=== PATIENT | female | born 1955 | race Caucasian/White ===

== ENCOUNTER → 2016-06-23 | Outpatient (CLI) | payer BC ==
--- NOTE | 2016-06-23 14:20 | XR ---
EXAMINATION TYPE: XR chest 2V DATE OF EXAM: 06/23/2016 1:55 PM COMPARISON: 08/05/2015 HISTORY: Bronchitis and cough FINDINGS: The lungs are clear and there is no pneumothorax, pleural effusion, or focal pneumonia. Postsurgical change overlying the cervical spine. Scoliosis noted. Hyperinflation suggestive of COPD. Changes sug gestive of chronic interstitial lung disease. Degenerative change of the spine. IMPRESSION: 1. No acute process.
== END | disposition home or self-care (01) ==
LOC: RADXRMAIN 13:41
PROVIDERS: ATTEND Physician Assistant
DX: J20.9 Acute bronchitis, unspecified (principal)
CPT/HCPCS: 71020

== ENCOUNTER → 2016-07-01 | Outpatient (CLI) | payer BC ==
[2016-07-01 10:04] LABS: Blood Urea Nitrogen 16 mg/dL (7-17); Non-African American GFR(MDRD) >60 (>60 ml/min/1.73 sqM)
--- NOTE | 2016-07-01 13:31 | MR ---
EXAMINATION TYPE: MR lumbar spine wo con DATE OF EXAM: 07/01/2016 11:43 AM COMPARISON: MRI lumbar spine July 07, 2012. CT abdomen and pelvis November 07, 2015. HISTORY: Lumbago per order. Severe low back pain with difficulty walking with pain into both lower ex tremities as well as numbness and tingling per patient. TECHNIQUE: Multiplanar, multisequence imaging of the lumbar spine is performed without IV contrast. FINDINGS: Sagittal images of the lumbar spine show vertebral body heights to appear satisfactory. The re is persistent dextroconvex scoliosis centered at L2-L3 level. There is multilevel disc desiccation redemonstrated. There is fairly moderate disc space narrowing with vacuum disc phenomenon most promi nent at left L2-L3 level where there is moderate spurring and endplate changes redemonstrated. Multil evel small posterior disc herniations are seen on sagittal images. The conus medullaris is normal in position and signal ending at mid L1 vertebral body level. The bone marrow signal intensity is other dykes within normal limits. There is mild multilevel anterior spurring redemonstrated. Axial images beginning at the T12-L1 level which shows mild broad disc bulge mildly effacing anterior thecal sac on axial image 29. Bilateral neural foramina are felt patent. No significant change from prior study is seen. Axial images at the L1-L2 level show mild facet degenerative changes bilaterally. There is mild broad disc bulge mildly effacing anterior thecal sac on axial image 25, bilateral neural foramina are woodward nt. Axial images at L2-L3 level show mild/moderate broad disc bulge with left foraminal/lateral disc prot rusion component on axial image 20. There is effacement of the anterior thecal sac. Mild facet degene rative changes are redemonstrated bilaterally. Right-sided neural foramina is patent. There is modera te to severe left-sided neural foraminal narrowing with effacement of left L2 nerve redemonstrated on sagittal image 5. Finding appears similar to prior exam. Axial images at L3-L4 level show mild to moderate facet degenerative changes and ligamentum flavum hy pertrophy with some effacement of the posterior lateral thecal sac. There is mild broad-based posteri or disc protrusion mildly effacing anterior thecal sac. There is mild to moderate bilateral anterior inferior neural foraminal narrowing at this level now identified. Some progression in degenerative fi nding is felt present versus prior MRI at this level. Axial images at L4-L5 level show mild to moderate facet degenerative changes and ligamentum flavum hy pertrophy with some effacement the posterior lateral thecal sac on axial image 10. There is mild/mode rate broad-based posterior disc protrusion effacing anterior thecal sac. There is moderate to severe right-sided neural foraminal narrowing and more mild left-sided neural foraminal narrowing identified . There is felt interval increased in right-sided neural foraminal narrowing seen best on sagittal im age 11 versus prior study. Some spurring is noted at this foraminal level. Axial images at L5-S1 level show mild facet degenerative changes bilaterally. There is central disc p rotrusion is seen. Spinal canal is fairly well preserved. Bilateral neural foramina are patent. Common bile duct remains prominent measuring up to 11 mm diameter on axial image 21, this is grossly stable from prior exams. Patient is noted status post cholecystectomy but this is slightly more promi nent than expected after cholecystectomy. IMPRESSION: Underlying scoliosis with multilevel degenerative changes in lumbar spine as detailed abo ve. Progression in degenerative findings as 2013 MRI is noted as detailed above.
--- NOTE | 2016-07-01 23:24 | MR ---
EXAMINATION TYPE: MR cervical spine wo/w con DATE OF EXAM: 07/01/2016 12:07 PM COMPARISON: NONE HISTORY: Cervicalgia TECHNIQUE: Multiplanar, multisequence images of the cervical spine were acquired utilizing 10 mL intravenous Mul tiHance gadolinium contrast. Diffusion weighted imaging was performed. The vertebra have normal alignment. There is anterior fusion with metal artifact at C5 C6 C7. The cer vical spinal cord has normal signal pattern without evidence of edema. Brainstem is intact. There is no spinal stenosis. I see no sign of a posterior cervical significant disc herniation. There is a sma ll posterior disc bulge at C3-4 towards the left side. The contrast images show no pathologic enhance ment. There is disc space narrowing at C5-6 C6-7. IMPRESSION: Previous anterior fusion surgery. Degenerative disc narrowing at C5-6 C6-7. No spinal stenosis. No ev idence of any cord impingement. There is a small left sided and central C3-4 disc bulging without imp ingement on the spinal canal to any extent.
== END | disposition home or self-care (01) ==
LOC: RADMRIMAIN 09:38
PROVIDERS: ATTEND Psychiatry & Neurology Neurology
DX: M48.02 Spinal stenosis, cervical region (principal); M50.21 Other cervical disc displacement, high cervical region; M47.816 Spondylosis without myelopathy or radiculopathy, lumbar region
CPT/HCPCS: 82565; 84520; 72148; 72156; A9577

== ENCOUNTER 2017-08-03 12:57 | Inpatient (IN) | payer BC ==
[2017-08-03] MEDS ORDERED: SODIUM CHLORIDE 0.9% 1,000 ML IV STA (13:42)
[2017-08-03] MEDS ORDERED: ALBUTEROL NEBULIZED 2.5 MG/3 ML INHALATION STA (13:43)
[2017-08-03] MEDS ORDERED: LEVOFLOXACIN 750MG-D5W PMX 750 MG in DEXTROSE/WATER 1 150ML.BAG IVPB STA (13:46)
[2017-08-03] MEDS: SODIUM CHLORIDE 0.9% 500 ML IV SCH ×2 (14:00→14:35)
[2017-08-03 14:19] LABS: Basophils % (A) 1 %; Eosinophils % (A) 0 %; HCT 38.4 % (34.0-46.0); HGB 12.2 gm/dL (11.4-16.0); Lymphocytes % (A) 14 %; MCH 29.9 pg (25.0-35.0); MCHC 31.7 g/dL (31.0-37.0); MCV 94.3 fL (80.0-100.0); Mean Platelet Volume 7.2; Monocytes # (A) 0.6 k/uL (0-1.0); Monocytes % (A) 8 %; Neutrophils # (A) 5.5 k/uL (1.3-7.7); Neutrophils % (A) 76 %; Platelet Count 234 k/uL (150-450); RBC 4.07 m/uL (3.80-5.40); RDW 13.4 % (11.5-15.5); WBC 7.3 k/uL (3.8-10.6)
[2017-08-03 14:25] LABS: INR 0.9 (<1.2); Partial Thromboplastin Time 23.9 sec (22.0-30.0); Prothrombin Time 9.3 sec (9.0-12.0)
[2017-08-03 14:30] LABS: ALT 18 U/L (9-52); AST 18 U/L (14-36); Albumin 3.7 g/dL (3.5-5.0); Alkaline Phosphatase 89 U/L (38-126); Anion Gap 10 mmol/L; Blood Urea Nitrogen 21 mg/dL (7-17); Calcium 8.8 mg/dL (8.4-10.2); Carbon Dioxide 29 mmol/L (22-30); Chloride 98 mmol/L (98-107); Glucose 131 mg/dL (74-99); Potassium 3.6 mmol/L (3.5-5.1); Sodium 137 mmol/L (137-145); Total Bilirubin 0.2 mg/dL (0.2-1.3); Total Protein 6.2 g/dL (6.3-8.2)
[2017-08-03 14:45] LABS: Creatine Kinase 67 U/L (30-135)
[2017-08-03 14:54] LABS: Creatine Kinase MB 1.2 ng/mL (0.0-2.4)
--- NOTE | 2017-08-03 15:05 | XR ---
EXAMINATION TYPE: XR chest 2V DATE OF EXAM: 08/03/2017 COMPARISON: 06/23/2016 TECHNIQUE: PA and lateral views submitted. HISTORY: Syncope FINDINGS: The lungs are clear and there is no pneumothorax, pleural effusion, or focal pneumonia. There is hyp erinflation suggests COPD and there is degenerative change of the spine. Heart size stable. Surgical change overlying the cervical spine. Somewhat coarsened central interstitium. Arthropathy of the shoulders. IMPRESSION: 1. Interstitium is somewhat increased relative to the prior exam correlate for mild venous congestion or interstitial pneumonitis superimposed on a background of COPD.
[2017-08-03 15:20] LABS: Troponin I <0.012 ng/mL (0.000-0.034)
[2017-08-03] MEDS ORDERED: OSELTAMIVIR 75 MG CAP PO STA (15:23)
--- NOTE | 2017-08-03 15:31 | ED ---
Syncope HPI - General Chief Complaint: Syncope Stated Complaint: Altered Mental Status Time Seen by Provider: 08/03/17 13:26 Source: patient Mode of arrival: wheelchair Limitations: no limitations - History of Present Illness Initial Comments: 62 years old female was found on the kitchen floor by her 445 this morning she was quite altered mental status she was confused she Repeating things and family wanted to bring her to the hospital and she refused to come to the hospital at this state continued for about 5-6 hours when finally she agreed to come to the hospital she is complaining about shortness of breath and then she spiked a fever and her fever was 102.3 in the ER, complaining about chest pain complaining about shortness of breath and she has been coughing. Positive changes in mental status positive chest pain past a shortness of breath no abdominal pain no frequency urgency dysuria. She has a multiple comorbidities at a peripheral vascular disease with multiple interventions - Related Data Home Medications Medication Instructions Recorded Confirmed Carvedilol 25 mg PO BID 05/30/15 08/03/17 Cetirizine HCl [Zyrtec] 10 mg PO DAILY 05/30/15 08/03/17 Hydrochlorothiazide 25 mg PO DAILY 05/30/15 08/03/17 Losartan Potassium 100 mg PO DAILY 05/30/15 08/03/17 Morphine Sulfate [Morphine Sulfate 30 mg PO DAILY PRN 05/30/15 08/03/17 ER] Omeprazole [PriLOSEC] 20 mg PO BID 05/30/15 08/03/17 Pravastatin Sodium [Pravachol] 20 mg PO DAILY 05/30/15 08/03/17 Ipratropium [place] [Atrovent Hfa] 2 puff INHALATION RT-QID 10/27/15 08/03/17 Azithromycin [Zithromax Z-pack] See Taper PO DIRECTED 08/03/17 08/03/17 Baclofen [Lioresal] 10 mg PO TID PRN 08/03/17 08/03/17 Depo-Medrol Injection 80 mg SQ ONCE 08/03/17 08/03/17 Fluticasone Propionate [Flovent 1 puff INHALATION RT-BID 08/03/17 08/03/17 Hfa 110mcg] Ipratropium-Albuterol Nebulize 3 ml INHALATION RT-QID PRN 08/03/17 08/03/17 [Duoneb 0.5 mg-3 mg/3 ml Soln] oxyCODONE-APAP 5-325MG [Percocet 1 tab PO DAILY PRN 08/03/17 08/03/17 5-325 mg] predniSONE 20 mg PO DAILY 08/03/17 08/03/17 Previous Rx's Medication Instructions Recorded Clopidogrel [Plavix] 75 mg PO DAILY #30 tab 06/05/15 Allergies Allergy/AdvReac Type Severity Reaction Status Date / Time Iodinated Contrast- Oral and Allergy Mild cold Verified 08/03/17 13:38 IV Dye symptoms, [Iodinated Contrast Media - runny IV Dye] nose, itchy eyes cough aspirin Allergy Anaphylaxis Verified 08/03/17 13:38 cephalexin monohydrate AdvReac Anaphylaxis Verified 08/03/17 13:38 [From Keflex] NSAIDS (Non-Steroidal AdvReac Anaphylaxis Verified 08/03/17 13:38 Anti-Inflamma Penicillins AdvReac Anaphylaxis Verified 08/03/17 13:38 bandaid AdvReac Mild skin peels Uncoded 08/03/17 13:22 off Review of Systems ROS Statement: Those systems with pertinent positive or pertinent negative responses have been documented in the HPI. ROS Other: All systems not noted in ROS Statement are negative. Past Medical History Past Medical History: Asthma, Coronary Artery Disease (CAD), Cancer, COPD, Deep Vein Thrombosis (DVT), Fibromyalgia, GERD/Reflux, Hyperlipidemia, Hypertension, Osteoarthritis (OA), Respiratory Disorder Additional Past Medical History / Comment(s): chronic bronchitis, nodules on thyroid, lip and skin cancer. Pt currently has gangrene on right foot History of Any Multi-Drug Resistant Organisms: None Reported Past Surgical History: Appendectomy, Section, Cholecystectomy, Coronary Bypass/CABG, Hysterectomy, Joint Replacement, Orthopedic Surgery Additional Past Surgical History / Comment(s): cervical fusion,aortogram w/ runoff rt arm, 06-04-15 ILIAC STENTING. Past Anesthesia/Blood Transfusion Reactions: Previous Problems w/ Anesthesia, Postoperative Nausea & Vomiting (PONV) Additional Past Anesthesia/Blood Transfusion Reaction / Comment(s): difficulty come out of anesthesia Past Psychological History: Depression Smoking Status: Current every day smoker Past Alcohol Use History: None Reported Past Drug Use History: None Reported - Past Family History Mother Family Medical History: Cancer, Coronary Artery Disease (CAD), Renal Disease Additional Family Medical History / Comment(s): CABG, LUNG CANCER, Brother(s) Family Medical History: Coronary Artery Disease (CAD), CVA/TIA Additional Family Medical History / Comment(s): 1 BROTHER CABG, 1 BROTHER STROKE Father Family Medical History: Coronary Artery Disease (CAD), Renal Disease Additional Family Medical History / Comment(s): X4 OPEN HEART SX. HUGE CARDIAC HX ON DADS SIDE OF FAMILY General Exam - General Exam Comments Initial Comments: General: The patient is awake and alert, she looks pale and weak Skin: Skin is warm and dry and no rashes or lesions are noted. Eye: Pupils are equal, round and reactive to light, extra-ocular movements are intact; there is normal conjunctiva bilaterally. Ears, nose, mouth and throat: Membranes are dry, she looks dehydrated Neck: The neck is supple, there is no tenderness or JVD. Cardiovascular: There is a regular rate and rhythm. No murmur, rub or gallop is appreciated. Respiratory: To auscultation bilateral, severe COPD Gastrointestinal: Soft, non-distended, non-tender abdomen without masses or organomegaly noted. There is no rebound or guarding present. Bowel sounds are unremarkable. Back: There is no tenderness to palpation in the midline. There is no obvious deformity. Musculoskeletal: Normal ROM, no tenderness, There is no pedal edema. There is no calf tenderness or swelling. No cords were appreciated. Neurological: CN II-XII intact, Cranial nerves III through XII are intact. There are no obvious motor or sensory deficits. Coordination appears grossly intact. Speech is normal. Psychiatric: Cooperative, appropriate mood & affect, normal judgment. Limitations: no limitations Course Vital Signs 08/03/17 08/03/17 08/03/17 13:17 13:55 14:12 Temperature 98.6 F 102.8 F H Pulse Rate 104 H 95 Respiratory 20 18 Rate Blood Pressure 120/59 O2 Sat by Pulse 87 L Oximetry 08/03/17 14:28 Temperature Pulse Rate 99 Respiratory Rate Blood Pressure O2 Sat by Pulse Oximetry ALLERGIES reassessed at 1515, CBC is unremarkable INR is within normal range compressive metabolic panel is unremarkable flu a is positive him and she earlier had a fever of 102 with the septic workup week get her started on some broad-spectrum antibiotics blood cultures urine cultures were ordered along with chest x-ray and chest x-ray shows an interstitial pneumonitis and COPD, head CT is pending still. Considering M she had altered mental status for several hours here in the CT is normal I would like to put in the hospital continue the Tamiflu as well as antibiotic to the cultures come back wound will keep her under Dr. Orozco's service EKG Findings - EKG Comments: EKG Findings:: Normal sinus rhythm ventricular rate is 98 OK interval is 126 QRS duration is 82 QT/QTC 3: review of this EKG does not reveal any ST elevation or ST depression Medical Decision Making - Lab Data Result diagrams: 08/03/17 14:00 08/03/17 14:00 Lab Results 08/03/17 08/03/17 08/03/17 Range/Units 14:00 14:00 14:00 WBC 7.3 (3.8-10.6) k/uL RBC 4.07 (3.80-5.40) m/uL Hgb 12.2 (11.4-16.0) gm/dL Hct 38.4 (34.0-46.0) % MCV 94.3 (80.0-100.0) fL MCH 29.9 (25.0-35.0) pg MCHC 31.7 (31.0-37.0) g/dL RDW 13.4 (11.5-15.5) % Plt Count 234 (150-450) k/uL Neutrophils % 76 % Lymphocytes % 14 % Monocytes % 8 % Eosinophils % 0 % Basophils % 1 % Neutrophils # 5.5 (1.3-7.7) k/uL Lymphocytes # 1.0 (1.0-4.8) k/uL Monocytes # 0.6 (0-1.0) k/uL Eosinophils # 0.0 (0-0.7) k/uL Basophils # 0.0 (0-0.2) k/uL PT (9.0-12.0) sec INR (<1.2) APTT (22.0-30.0) sec Sodium 137 (137-145) mmol/L Potassium 3.6 (3.5-5.1) mmol/L Chloride 98 (98-107) mmol/L Carbon Dioxide 29 (22-30) mmol/L Anion Gap 10 mmol/L BUN 21 H (7-17) mg/dL Creatinine 0.70 (0.52-1.04) mg/dL Est GFR (MDRD) Af Amer >60 (>60 ml/min/1.73 sqM) Est GFR (MDRD) Non-Af >60 (>60 ml/min/1.73 sqM) Glucose 131 H (74-99) mg/dL Plasma Lactic Acid Denis (0.7-2.0) mmol/L Calcium 8.8 (8.4-10.2) mg/dL Total Bilirubin 0.2 (0.2-1.3) mg/dL AST 18 (14-36) U/L ALT 18 (9-52) U/L Alkaline Phosphatase 89 (38-126) U/L Total Creatine Kinase 67 (30-135) U/L CK-MB (CK-2) 1.2 (0.0-2.4) ng/mL CK-MB (CK-2) Rel Index 1.8 Troponin I <0.012 (0.000-0.034) ng/mL Total Protein 6.2 L (6.3-8.2) g/dL Albumin 3.7 (3.5-5.0) g/dL Influenza Type A RNA (Not Detectd) Influenza Type B (PCR) (Not Detectd) 08/03/17 08/03/17 08/03/17 Range/Units 14:00 14:00 14:10 WBC (3.8-10.6) k/uL RBC (3.80-5.40) m/uL Hgb (11.4-16.0) gm/dL Hct (34.0-46.0) % MCV (80.0-100.0) fL MCH (25.0-35.0) pg MCHC (31.0-37.0) g/dL RDW (11.5-15.5) % Plt Count (150-450) k/uL Neutrophils % % Lymphocytes % % Monocytes % % Eosinophils % % Basophils % % Neutrophils # (1.3-7.7) k/uL Lymphocytes # (1.0-4.8) k/uL Monocytes # (0-1.0) k/uL Eosinophils # (0-0.7) k/uL Basophils # (0-0.2) k/uL PT 9.3 (9.0-12.0) sec INR 0.9 (<1.2) APTT 23.9 (22.0-30.0) sec Sodium (137-145) mmol/L Potassium (3.5-5.1) mmol/L Chloride (98-107) mmol/L Carbon Dioxide (22-30) mmol/L Anion Gap mmol/L BUN (7-17) mg/dL Creatinine (0.52-1.04) mg/dL Est GFR (MDRD) Af Amer (>60 ml/min/1.73 sqM) Est GFR (MDRD) Non-Af (>60 ml/min/1.73 sqM) Glucose (74-99) mg/dL Plasma Lactic Acid Denis 1.1 (0.7-2.0) mmol/L Calcium (8.4-10.2) mg/dL Total Bilirubin (0.2-1.3) mg/dL AST (14-36) U/L ALT (9-52) U/L Alkaline Phosphatase (38-126) U/L Total Creatine Kinase (30-135) U/L CK-MB (CK-2) (0.0-2.4) ng/mL CK-MB (CK-2) Rel Index Troponin I (0.000-0.034) ng/mL Total Protein (6.3-8.2) g/dL Albumin (3.5-5.0) g/dL Influenza Type A RNA Detected H (Not Detectd) Influenza Type B (PCR) Not Detected (Not Detectd) Disposition Clinical Impression: Syncope, Altered mental status, Sepsis, Influenza A Disposition: ADMITTED IP TO THIS HOSP Condition: Fair Referrals: Carlton Orozco MD [Primary Care Provider] - 1-2 days
--- NOTE | 2017-08-03 16:24 | CT ---
EXAMINATION TYPE: CT brain wo con DATE OF EXAM: 08/03/2017 COMPARISON: 10/04/2013 HISTORY: 62-year-old female complains of syncope. TECHNIQUE: Examination was done in axial plane without intravenous contrast. Coronal and sagittal r econstructions performed. CT DLP: 816.3 mGycm Automated exposure control for dose reduction was used. FINDINGS: There is no evidence of acute intracranial hemorrhage, acute ischemic changes, mass, mass-effect, or extra-axial fluid collection. There is no effacement of cerebral sulci or basal subarachnoid cister ns. There is no hydrocephalus. There is no midline shift. [place]-white matter distinction is preserv ed. Paranasal sinuses and mastoid air cells are well pneumatized. Orbits and globes are intact. IMPRESSION: No acute intracranial abnormality seen.
[2017-08-03] MEDS ORDERED: ACETAMINOPHEN TAB 325 MG TAB PO STA (16:46)
[2017-08-03] MEDS ORDERED: BACLOFEN 10 MG TAB PO PRN (17:02)
[2017-08-03] MEDS ORDERED: IPRATROPIUM-ALBUTEROL 3 ML NEB INHALATION PRN (17:02)
[2017-08-03] MEDS ORDERED: SYMBICORT 80-4.5 MCG INHALER INHALATION SCH (20:00)
[2017-08-03] MEDS ORDERED: FLUTICASONE PROPIONATE INHALATION SCH (20:00)
[2017-08-03] MEDS ORDERED: BUDESONIDE 0.5 MG/2 ML NEBU INHALATION SCH (20:00)
[2017-08-03] MEDS ORDERED: SYMBICORT 160-4.5 MCG INHALER INHALATION SCH (20:00)
[2017-08-03] MEDS: CARVEDILOL 12.5 MG TAB PO SCH (21:21)
[2017-08-03] MEDS: methylPREDNISolone SOD SUCCI 125 MG/2 ML VIAL IV SCH (21:21)
[2017-08-03] MEDS: PANTOPRAZOLE 40 MG TABLET PO SCH (21:22)
[2017-08-03] MEDS: BUDESONIDE 1 MG/2 ML NEBU INHALATION SCH (21:29)
[2017-08-03] MEDS: IPRATROPIUM 0.5 MG/2.5 ML NEBU INHALATION SCH (21:30)
[2017-08-03] MEDS: oxyCODONE-APAP 5-325MG 1 EACH TAB PO PRN (21:38)
--- NOTE | 2017-08-03 22:11 | P.HPIM ---
History of Present Illness H&P Date: 08/03/17 Chief Complaint: Altered mental status Patient is a 62-year-old female with a known history of COPD not on home oxygen , fibromyalgia, chronic pain, and severe peripheral vascular disease with history of I aortic and femoral popliteal surgeries was found on the kitchen floor by her 445 this morning she was quite altered mental status she was confused she Repeating things and family wanted to bring her to the hospital and she refused to come to the hospital at this state continued for about 5-6 hours when finally she agreed to come to the hospital. Patient has been cough and cold for the past 2-3 days. she is complaining about shortness of breath and then she spiked a fever and her fever was 102.3 in the ER, complaining about chest pain complaining about shortness of breath and she has been coughing. no abdominal pain no frequency urgency dysuria. Patient says that she might have sleep apnea on the floor and has been having some left ankle pain and otherwise denied any head injury or any other pain. Denied any history of seizures. No history of CVA in the past. No bladder or bowel incontinence. Chest x-ray showed COPD and possible interstitial pneumonitis CT head showed no acute intracranial process Review of Systems Constitutional: Patient does have fever and chills and generalized weakness . No weight loss. Abdomen: Patient denied nausea vomiting and diarrhea and abdominal pain. Cardiovascular: Patient denies any chest pain no palpitations. Does have shortness of breath. No leg swelling Respiratory: Cough without sputum production shortness of breath Neurologic: Patient denied any numbness or tingling headache. Musculoskeletal: Patient denies any complaints of joint swelling or deformity. Left ankle pain Skin: Negative Psychiatric: Anxious Endocrine: No heat or cold intolerance. No recent weight gain. Genitourinary: No dysuria or hematuria. All other 14 point ROS negative except the above Past Medical History Past Medical History: Asthma, Coronary Artery Disease (CAD), Cancer, COPD, Deep Vein Thrombosis (DVT), Fibromyalgia, GERD/Reflux, Hyperlipidemia, Hypertension, Osteoarthritis (OA), Respiratory Disorder, Vascular Disorder Additional Past Medical History / Comment(s): pad,chronic bronchitis, nodules on thyroid, leukoplakia-lip and vocal cords. past" gangrene on right foot" History of Any Multi-Drug Resistant Organisms: None Reported Past Surgical History: Appendectomy, Section, Cholecystectomy, Hysterectomy, Joint Replacement, Orthopedic Surgery Additional Past Surgical History / Comment(s): leukoplakia removed from lip and vocal cords.cervical fusion,2013 rt aorto iliac bypass,aortogram w/ runoff. 2014 had stenting of aorto to rt ext iliac bypass, rt foot 2nd toe reconstructive sx, rt carotid endarterectomy, egd/colonoscopy ,cervical fusion, lt knee replacment.lt elbow sx,umbilical hernia repair,bilcarpal tunnel release, lt breast bx-neg Past Anesthesia/Blood Transfusion Reactions: Previous Problems w/ Anesthesia, Postoperative Nausea & Vomiting (PONV) Additional Past Anesthesia/Blood Transfusion Reaction / Comment(s): difficulty waking from anesthesia Smoking Status: Current every day smoker - Past Family History Mother Family Medical History: Cancer, Coronary Artery Disease (CAD), Renal Disease Additional Family Medical History / Comment(s): CABG, LUNG CANCER, Brother(s) Family Medical History: Coronary Artery Disease (CAD), CVA/TIA Additional Family Medical History / Comment(s): 1 BROTHER CABG, 1 BROTHER STROKE Father Family Medical History: Coronary Artery Disease (CAD), Renal Disease Additional Family Medical History / Comment(s): X4 OPEN HEART SX. HUGE CARDIAC HX ON DADS SIDE OF FAMILY Medications and Allergies Home Medications Medication Instructions Recorded Confirmed Type Carvedilol 25 mg PO BID 05/30/15 08/03/17 History Cetirizine HCl [Zyrtec] 10 mg PO DAILY 05/30/15 08/03/17 History Hydrochlorothiazide 25 mg PO DAILY 05/30/15 08/03/17 History Losartan Potassium 100 mg PO DAILY 05/30/15 08/03/17 History Morphine Sulfate [Morphine Sulfate 30 mg PO DAILY PRN 05/30/15 08/03/17 History ER] Omeprazole [PriLOSEC] 20 mg PO BID 05/30/15 08/03/17 History Pravastatin Sodium [Pravachol] 20 mg PO DAILY 05/30/15 08/03/17 History Clopidogrel [Plavix] 75 mg PO DAILY #30 tab 06/05/15 08/03/17 Rx Ipratropium [place] [Atrovent Hfa] 2 puff INHALATION RT-QID 10/27/15 08/03/17 History Azithromycin [Zithromax Z-pack] See Taper PO DIRECTED 08/03/17 08/03/17 History Baclofen [Lioresal] 10 mg PO TID PRN 08/03/17 08/03/17 History Depo-Medrol Injection 80 mg SQ ONCE 08/03/17 08/03/17 History Fluticasone Propionate [Flovent 1 puff INHALATION RT-BID 08/03/17 08/03/17 History Hfa 110mcg] Ipratropium-Albuterol Nebulize 3 ml INHALATION RT-QID PRN 08/03/17 08/03/17 History [Duoneb 0.5 mg-3 mg/3 ml Soln] oxyCODONE-APAP 5-325MG [Percocet 1 tab PO DAILY PRN 08/03/17 08/03/17 History 5-325 mg] predniSONE 20 mg PO DAILY 08/03/17 08/03/17 History Allergies Allergy/AdvReac Type Severity Reaction Status Date / Time Iodinated Contrast- Oral and Allergy Mild cold Verified 08/03/17 13:38 IV Dye symptoms, [Iodinated Contrast Media - runny IV Dye] nose, itchy eyes cough aspirin Allergy Anaphylaxis Verified 08/03/17 13:38 cephalexin monohydrate AdvReac Anaphylaxis Verified 08/03/17 13:38 [From Keflex] NSAIDS (Non-Steroidal AdvReac Anaphylaxis Verified 08/03/17 13:38 Anti-Inflamma Penicillins AdvReac Anaphylaxis Verified 08/03/17 13:38 bandaid AdvReac Mild skin peels Uncoded 08/03/17 13:22 off Physical Exam Vitals: Vital Signs Temp Pulse Pulse Resp BP BP Pulse Ox 08/03/17 18:55 100.4 F H 98 18 133/62 94 L 08/03/17 18:00 101.8 F H 96 20 128/61 94 L 08/03/17 16:00 110 H 20 126/92 95 08/03/17 15:22 101.8 F H 101 H 20 131/88 95 08/03/17 14:28 99 08/03/17 14:12 95 18 08/03/17 13:55 102.8 F H 08/03/17 13:17 98.6 F 104 H 20 120/59 87 L Intake and Output 08/03/17 08/03/17 08/03/17 06:59 14:59 22:59 Other: Weight 49.895 kg Patient Weight 08/04/17 06:59 Weight 49.895 kg PHYSICAL EXAMINATION: Patient is lying in the bed comfortably, mild distress, awake alert and oriented. Seems anxious. HEENT: Normocephalic. Neck is supple. Pupils reactive. Nostrils clear. Oral cavity is moist. Ears reveal no drainage. Neck reveals no JVD, carotid bruits, or thyromegaly. CHEST EXAMINATION: Trachea is central. Symmetrical expansion. Lung parker clear to auscultation and percussion. CARDIAC: Normal S1, S2 with no gallops. No murmurs ABDOMEN: Soft. Bowel sounds normal. No organomegaly. No abdominal bruits. Extremities: reveal no edema. No clubbing or cyanosis Neurologically awake, alert, oriented x3 with well-coordinated movements. No focal deficits noted Skin: No rash or skin lesions. Psychiatric: Cooperative. Nonsuicidal Musculoskeletal: No joint swelling or deformity. Normal range of motion. Results CBC & Chem 7: 08/03/17 14:00 08/03/17 14:00 Labs: Abnormal Lab Results - Last 24 Hours (Table) 08/03/17 08/03/17 Range/Units 14:00 14:10 BUN 21 H (7-17) mg/dL Glucose 131 H (74-99) mg/dL Total Protein 6.2 L (6.3-8.2) g/dL Influenza Type A RNA Detected H (Not Detectd) Thrombosis Risk Factor Assmnt - DVT/VTE Prophylaxis DVT/VTE Prophylaxis: Pharmacologic Prophylaxis ordered Assessment and Plan Assessment: Altered mental status and found on floor. Resolved now. Unlikely encephalopathy. Syncope likely due to dehydration and volume depletion and infection. Ruled out acute CVA. CT head negative Acute influenza A infection History of severe peripheral vascular disease and multiple aortic and femoral surgeries COPD with exacerbation Fibromyalgia and chronic pain Hyperlipidemia Hypertension Osteoarthritis and history of cervical fusion History of right foot gangrene History of right carotid endarterectomy DVT prophylaxis Plan: Patient be continued on IV fluids. Continue the Tamiflu. Currently patient is awake and oriented. CT head negative for any acute CVA. Continue the home medications. Patient also will be continued on breathing treatments and IV steroids and empiric antibiotics. Follow up closely. Neurology was consulted for evaluation of syncope. Further recommendations based on the clinical course. Time with Patient: Greater than 30
[2017-08-03 23:59] LABS: Appearance,Urine Clear (Clear); Bilirubin,Urine Negative (Negative); Blood,Urine Negative (Negative); Color,Urine Yellow; Glucose,Urine (UA) Negative (Negative); Hyaline Casts,Urine 1 /lpf (0-2); Ketones,Urine Negative (Negative); Leukocyte Esterase,Urine Negative (Negative); Mucus,Urine Occasional /hpf; Nitrite,Urine Negative (Negative); Protein,Urine 1+ (Negative); RBC,Urine 1 /hpf (0-5); Specific Gravity,Urine 1.015 (1.001-1.035); Squamous Epithelial Cell,Urine 1 /hpf (0-4); Urobilinogen,Urine <2.0 mg/dL (<2.0); WBC,Urine 2 /hpf (0-5)
[2017-08-04] MEDS: methylPREDNISolone SOD SUCCI 125 MG/2 ML VIAL IV SCH ×4 (01:24→18:42)
[2017-08-04] MEDS: MORPHINE SULFATE ER 30 MG TABLET PO PRN (07:47)
[2017-08-04] MEDS: CARVEDILOL 12.5 MG TAB PO SCH ×2 (07:47→16:56)
[2017-08-04] MEDS: PANTOPRAZOLE 40 MG TABLET PO SCH ×2 (07:48→21:20)
[2017-08-04] MEDS: OSELTAMIVIR 75 MG CAP PO SCH ×2 (07:49→21:19)
[2017-08-04] MEDS: BUDESONIDE 1 MG/2 ML NEBU INHALATION SCH ×2 (08:38→20:26)
[2017-08-04] MEDS: IPRATROPIUM 0.5 MG/2.5 ML NEBU INHALATION SCH ×4 (08:38→20:26)
[2017-08-04] MEDS: CLOPIDOGREL 75 MG TAB PO SCH (08:59)
[2017-08-04] MEDS: HYDROCHLOROTHIAZIDE 25 MG TAB PO SCH (08:59)
[2017-08-04] MEDS: LORATADINE 10 MG TAB PO SCH (08:59)
[2017-08-04] MEDS: ENOXAPARIN 40 MG/0.4 ML SYRINGE SQ SCH (08:59)
[2017-08-04] MEDS: LOSARTAN 50 MG TAB PO SCH (08:59)
[2017-08-04] MEDS: NICOTINE 21MG/24HR PATCH TRANSDERM SCH (09:00)
[2017-08-04] MEDS: PRAVASTATIN SODIUM 20 MG TAB PO SCH (09:00)
[2017-08-04 09:12] LABS: Basophils % (A) 0 %; Eosinophils % (A) 0 %; HCT 36.3 % (34.0-46.0); HGB 11.9 gm/dL (11.4-16.0); Lymphocytes # (A) 0.6 k/uL (1.0-4.8); Lymphocytes % (A) 14 %; MCH 30.3 pg (25.0-35.0); MCHC 32.6 g/dL (31.0-37.0); MCV 92.7 fL (80.0-100.0); Mean Platelet Volume 7.3; Monocytes # (A) 0.1 k/uL (0-1.0); Monocytes % (A) 3 %; Neutrophils # (A) 3.1 k/uL (1.3-7.7); Neutrophils % (A) 81 %; Platelet Count 242 k/uL (150-450); RBC 3.92 m/uL (3.80-5.40); RDW 13.4 % (11.5-15.5); WBC 3.9 k/uL (3.8-10.6)
[2017-08-04 09:19] LABS: Anion Gap 10 mmol/L; Blood Urea Nitrogen 14 mg/dL (7-17); Calcium 8.8 mg/dL (8.4-10.2); Carbon Dioxide 26 mmol/L (22-30); Chloride 104 mmol/L (98-107); Glucose 159 mg/dL (74-99); Potassium 4.4 mmol/L (3.5-5.1); Sodium 140 mmol/L (137-145)
--- NOTE | 2017-08-04 10:09 | CONS ---
CONSULTATION DATE OF CONSULTATION: 08/03/2017 CHIEF COMPLAINT: Syncope. HISTORY OF PRESENT ILLNESS: The patient is a pleasant 62-year-old, female, who is being evaluated today on 08/03/2017 by the Neurology Service per the request of Dr. Rodriguez for a syncopal spell. The patient was brought into [facility] Emergency Room after she was found on the kitchen floor unconscious by her . The patient states that she was quite fatigued that morning and remembers feeling lightheaded and short of breath. She does have history of chronic obstructive pulmonary disease. She also reports having some fevers although she never checked her temperature. When her found her, he was able to wake her up but she was somewhat confused. She did not have any sphincter incontinence and no seizure-like activity was witnessed. She did not have any tongue biting. She denies any previous history of seizures. In the emergency room, she was found to have a temperature of 102.8. Her oxygen saturation was 87%. A CT scan of the brain was done which showed no intracranial abnormalities. A chest x-ray was done, which showed evidence of possible pneumonitis. A flu test was done and she was positive for influenza A virus and negative for influenza B. She was started on Tamiflu and IV hydration and admitted for further workup and management. The patient was also started on Levaquin for possible pneumonia. At the time of my evaluation, she is sitting up in her bed and appears to be in no acute distress. She denies any recurrence of any syncopal or presyncopal symptoms. She is complaining of some posterior rib pain in the thoracic region along with some thoracic spine pain. Her CBC and cardiac enzymes were normal. Her comprehensive metabolic profile showed slightly elevated BUN at 21 and glucose at 131. PAST MEDICAL HISTORY: Chronic obstructive pulmonary disease, asthma, coronary artery disease, history of deep venous thrombosis, fibromyalgia, gastroesophageal reflux disease, hypertension, dyslipidemia, arthritis, history of thyroid nodule, skin cancer, history of appendectomy, , cholecystectomy, coronary artery bypass grafting, hysterectomy, joint replacement surgery, cervical spine fusion, iliac stenting, depression. SOCIAL HISTORY: The patient is a current every day smoker. She denies any alcohol or drug use. FAMILY HISTORY: Positive for cancer, stroke and heart disease. HOME MEDICATIONS: Reviewed in the chart. ALLERGIES: IV DYE, ASPIRIN, KEFLEX, NSAIDS, PENICILLIN, BAND-AIDS. REVIEW OF SYSTEMS: CONSTITUTIONAL: As mentioned above. EYES: Negative. ENT: Negative. CARDIOVASCULAR: Negative. RESPIRATORY: As mentioned above. NEUROLOGICAL: As mentioned above. She denies any lateralizing numbness or weakness. GASTROINTESTINAL: Positive for occasional heartburn. GENITOURINARY: Negative. PSYCHIATRIC: Positive for history of depression. MUSCULOSKELETAL: Positive for recurrent joint pain and spine pain. Also, as mentioned above. ENDOCRINE: Negative. DERMATOLOGICAL: Positive for history of skin cancer. PHYSICAL EXAM: Vital signs show a temperature of 100.4, pulse 98, respiration 18, blood pressure 133/62. GENERAL APPEARANCE: The patient is a thin, elderly, female, who appears to be in no acute distress. HEENT: Normocephalic, atraumatic, no facial asymmetry is seen. NECK: Supple with no masses felt. CARDIOVASCULAR: Regular rate and rhythm. ABDOMEN: Nontender, nondistended. EXTREMITIES: Showed no edema or clubbing. NEUROLOGICAL EXAM: The patient is alert, aware, and oriented x3. Speech and language are normal. Strength is full in all 4 extremities. Sensory exam was normal to light touch in all 4 extremities. No facial asymmetry seen on cranial nerve testing. No tremors or seizure-like activity is seen. IMPRESSION: 1. Syncopal spell. 2. Febrile illness. 3. Influenza A virus infection. 4. Thoracic spine pain and rib pain. 5. Chronic obstructive pulmonary disease exacerbation. 6. Tobacco dependence. RECOMMENDATION: The patient did have a syncopal episode, but the exact etiology is unknown at this time. She does remember feeling fatigued and lightheaded prior to the episode. This could be related to her chronic obstructive pulmonary disease exacerbation, respiratory tract infection, influenza virus infection, and dehydration. Her CT scan of the brain was reviewed and it showed no acute findings. Continue antibiotics, Tamiflu, and IV hydration. Continue neuro checks. An EEG has been ordered. She is complaining of some posterior left rib pain and thoracic spine pain. I do recommend radiological testing to rule out any acute fractures. The patient was counseled extensively on tobacco cessation. I will continue to follow with you. Further recommendations to follow. Thank you for allowing me to participate in the care of your patient. If you have any questions, please feel free to contact me. MMASMITA / IJN: [id number] /
--- NOTE | 2017-08-04 12:48 | XR ---
Chest x-ray with left RIBS HISTORY: Back pain, fall Frontal view of the chest, 4 views of the left ribs submitted and correlated to prior chest x-ray 07/21 Bone mineralization is reduced which may limit sensitivity. No definite displaced rib fracture is migel dent, however, questionable nondisplaced fracture at the posterior sixth rib on the left seen on the oblique view. Chest shows interstitial changes. Postop changes noted to the cervical spine. The aorta is dense. Prominent lung volumes suggest underlying COPD. There is an underlying scoliosis. Postop c hanges are noted to the abdomen, iliac stent placement has been performed. Heart size is normal. Pulm onary artery appears prominently possibly due to pulmonary artery hypertension. IMPRESSION: Possible posterior left sixth rib fracture, bone scan could be performed for additional e valuation. Interstitial lung disease, possible underlying emphysema, pulmonary artery hypertension, a dditional findings above.
--- NOTE | 2017-08-04 13:52 | XR ---
Thoracic spine HISTORY: Trauma and pain 3 views of the thoracic spine Correlation to chest x-ray and left rib same date Postop change noted to the cervical spine. Bone mineralization is reduced which could limit sensitivi ty. There is an S-shaped thoracic lumbar scoliosis with associated spondylosis. Disc spaces are maint ained. Surgical clips present in the right upper quadrant. Thoracic vertebral body height is maintain ed. Mild anterolisthesis grade 1 C3-4 incidentally noted may be due to facet arthropathy. IMPRESSION: No acute fracture or subluxation. Scoliosis and osteopenia, bone scan or MRI may be of be nefit for better evaluation. Additional findings above.
[2017-08-04] MEDS: LEVOFLOXACIN 500 MG TAB PO SCH (14:03)
--- NOTE | 2017-08-04 15:24 | P.PN ---
Subjective Progress Note Date: 08/04/17 Principal diagnosis: Syncopal episode This is a 62-year-old female known to our practice being evaluated for an episode of syncope. She was brought to [facility] emergency room after she was found on the kitchen floor by her . She remembers feeling fatigued and lightheaded that day. She has a history of significant COPD. She also reports having some upper respiratory symptoms. She has no history of seizures. No seizure-like activity was witnessed. At presentation in the emergency room she did have a temperature of 102.8. Her oxygen saturation was 87%. Her computed tomography scan of the brain showed no acute intracranial abnormalities. Chest x-ray showed possible pneumonitis. She did test positive for influenza A. She has been started on Tamiflu and IV hydration. She was also started on Levaquin for possible pneumonia. Because of her fall and x-ray of the thoracic spine and rib series was done. Thoracic spine showed no acute abnormalities. There was indication there may be a left sixth rib fracture. She is sore in this area. At the time my evaluation she is sitting up in resting comfortably in bed. She is in no significant distress. She has had no syncopal or presyncopal symptoms since her admission. An EEG has just been performed. Objective - Vital Signs Vital signs: Vital Signs Temp 96.5 F L 08/04/17 07:00 Pulse 104 H 08/04/17 08:58 Resp 18 08/04/17 07:00 BP 127/57 08/04/17 07:00 Pulse Ox 94 L 08/04/17 07:00 Intake & Output 08/03/17 08/04/17 08/04/17 18:59 06:59 18:59 Intake Total 650 Output Total 1200 Balance -550 Weight 49.895 kg Intake: Oral 650 Output: Urine 1200 Other: Voiding Method Toilet # Voids 1 - Constitutional General appearance: Present: cooperative, mild distress, thin - EENT Eyes: Present: EOMI, PERRLA. Absent: abnormal pupil, ptosis ENT: Present: hearing grossly normal - Neck Neck: Present: normal ROM. Absent: rigidity - Respiratory Respiratory: negative: wheezing, prolonged expiration, prolonged inspiration - Cardiovascular Rhythm: regular - Gastrointestinal General gastrointestinal: Absent: distended, tenderness - Neurologic Neurologic Comment(s): She is alert awake and oriented 3. Speech-language are normal. There is no facial asymmetry. Strength is full in bilateral upper lower extremities. There is no sensory deficit. No tremors or seizure-like activities are seen. - Labs CBC & Chem 7: 08/04/17 08:09 08/04/17 08:09 Labs: Abnormal Lab Results - Last 24 Hours (Table) 08/03/17 08/04/17 08/04/17 Range/Units 22:00 08:09 08:09 Lymphocytes # 0.6 L (1.0-4.8) k/uL Creatinine 0.45 L (0.52-1.04) mg/dL Glucose 159 H (74-99) mg/dL Urine Protein 1+ H (Negative) Urine Mucus Occasional H (None) /hpf Microbiology - Last 24 Hours (Table) 08/03/17 22:00 Urine Culture - Preliminary Urine,Voided Assessment and Plan (1) Febrile respiratory illness Current Visit: Yes Status: Acute Code(s): J98.9 - RESPIRATORY DISORDER, UNSPECIFIED; R50.9 - FEVER, UNSPECIFIED SNOMED Code(s): 53489017 (2) Rib pain Current Visit: Yes Status: Acute Code(s): R07.81 - PLEURODYNIA SNOMED Code (s): 127654084 (3) Rib fracture Current Visit: Yes Status: Acute Code(s): S22.39XA - FRACTURE OF ONE RIB, UNSP SIDE, INIT FOR CLOS FX SNOMED Code(s): 36899315 (4) COPD (chronic obstructive pulmonary disease) Current Visit: Yes Status: Chronic Code(s): J44.9 - CHRONIC OBSTRUCTIVE PULMONARY DISEASE, UNSPECIFIED SNOMED Code(s): 87747387 (5) Tobacco dependence Current Visit: Yes Status: Chronic Code(s): F17.200 - NICOTINE DEPENDENCE, UNSPECIFIED, UNCOMPLICATED SNOMED Code(s): 66963074 (6) Influenza A Current Visit: Yes Status: Acute Code(s): J10.1 - FLU DUE TO OTH IDENT INFLUENZA VIRUS W OTH RESP MANIFEST SNOMED Code(s): 145070970 (7) Syncope Current Visit: Yes Status: Acute Code(s): R55 - SYNCOPE AND COLLAPSE SNOMED Code(s): 299022107 Plan: The patient has had a syncopal episode. This is likely due to her upper respiratory illnesses compounded by her chronic obstructive pulmonary disease. Recommend supportive care. Recommend continue antibiotics Tamiflu and IV hydration. Probably not much to be done about her rib fracture, but consider orthopedic referral if pain is severe. Barring any of her seen abnormalities on her EEG she is cleared from a neurological standpoint, and we will follow her up in outpatient setting. I have performed a history and physical on the above patient. I have reviewed the above note, and agree.
[2017-08-04] MEDS: oxyCODONE-APAP 5-325MG 1 EACH TAB PO PRN (16:56)
[2017-08-05] MEDS: methylPREDNISolone SOD SUCCI 125 MG/2 ML VIAL IV SCH ×5 (00:11→23:19)
[2017-08-05] MEDS: MORPHINE SULFATE ER 30 MG TABLET PO PRN (06:27)
[2017-08-05] MEDS: NICOTINE 21MG/24HR PATCH TRANSDERM SCH (07:37)
[2017-08-05] MEDS: PRAVASTATIN SODIUM 20 MG TAB PO SCH (07:38)
[2017-08-05] MEDS: CARVEDILOL 12.5 MG TAB PO SCH ×2 (07:38→16:40)
[2017-08-05] MEDS: PANTOPRAZOLE 40 MG TABLET PO SCH ×2 (07:38→21:03)
[2017-08-05] MEDS: HYDROCHLOROTHIAZIDE 25 MG TAB PO SCH (07:38)
[2017-08-05] MEDS: ENOXAPARIN 40 MG/0.4 ML SYRINGE SQ SCH (07:38)
[2017-08-05] MEDS: LORATADINE 10 MG TAB PO SCH (07:38)
[2017-08-05] MEDS: CLOPIDOGREL 75 MG TAB PO SCH (07:38)
[2017-08-05] MEDS: OSELTAMIVIR 75 MG CAP PO SCH ×2 (07:38→21:02)
[2017-08-05] MEDS: LOSARTAN 50 MG TAB PO SCH (07:38)
[2017-08-05] MEDS: IPRATROPIUM 0.5 MG/2.5 ML NEBU INHALATION SCH ×4 (08:13→19:33)
[2017-08-05] MEDS: BUDESONIDE 1 MG/2 ML NEBU INHALATION SCH ×2 (08:13→19:34)
[2017-08-05] MEDS: LEVOFLOXACIN 500 MG TAB PO SCH (13:34)
[2017-08-05] MEDS: oxyCODONE-APAP 5-325MG 1 EACH TAB PO PRN (13:34)
[2017-08-05 14:55] VITALS: RESP 18
--- NOTE | 2017-08-05 23:40 | P.PN ---
Subjective Progress Note Date: 08/04/17 Principal diagnosis: Acute influenza A infection Patient is a 62-year-old female with a known history of COPD not on home oxygen , fibromyalgia, chronic pain, and severe peripheral vascular disease with history of I aortic and femoral popliteal surgeries was found on the kitchen floor by her 445 this morning she was quite altered mental status she was confused she Repeating things and family wanted to bring her to the hospital and she refused to come to the hospital at this state continued for about 5-6 hours when finally she agreed to come to the hospital. Patient has been cough and cold for the past 2-3 days. she is complaining about shortness of breath and then she spiked a fever and her fever was 102.3 in the ER, complaining about chest pain complaining about shortness of breath and she has been coughing. no abdominal pain no frequency urgency dysuria. Patient says that she might have sleep apnea on the floor and has been having some left ankle pain and otherwise denied any head injury or any other pain. Denied any history of seizures. No history of CVA in the past. No bladder or bowel incontinence. Chest x-ray showed COPD and possible interstitial pneumonitis CT head showed no acute intracranial process. 08/04/2017 Patient did improve clinically otherwise patient is still requiring oxygen by another cannula. Patient has been afebrile now. No commerce of chest pain or worsening shortness of breath. Otherwise patient is eager to be discharged home. X-ray of thoracic spine showed posterior sixth rib possible fracture All other review of systems negative except about Current medications reviewed. Objective - Vital Signs Vital signs: Vital Signs Temp 98.5 F 08/04/17 15:00 Pulse 85 08/04/17 16:33 Resp 18 08/04/17 15:00 BP 134/69 08/04/17 15:00 Pulse Ox 92 L 08/04/17 15:00 Intake & Output 08/03/17 08/04/17 08/04/17 18:59 06:59 18:59 Intake Total 650 1100 Output Total 1200 Balance -550 1100 Weight 49.895 kg Intake: Oral 650 1100 Output: Urine 1200 Other: Voiding Method Toilet # Voids 1 3 - Exam PHYSICAL EXAMINATION: Patient is lying in the bed comfortably, no acute distress, awake alert and oriented.. HEENT: Normocephalic. Neck is supple. Pupils reactive. Nostrils clear. Oral cavity is moist. Ears reveal no drainage. Neck reveals no JVD, carotid bruits, or thyromegaly. CHEST EXAMINATION: Trachea is central. Symmetrical expansion. Bilateral rhonchi and right breast crackles and diminished air entry. CARDIAC: Normal S1, S2 with no gallops. No murmurs ABDOMEN: Soft. Bowel sounds normal. No organomegaly. No abdominal bruits. Extremities: reveal no edema. No clubbing or cyanosis Neurologically awake, alert, oriented x3 with well-coordinated movements. No focal deficits noted Skin: No rash or skin lesions. Psychiatric: Cooperative. Nonsuicidal Musculoskeletal: No joint swelling or deformity. Normal range of motion. - Labs CBC & Chem 7: 08/04/17 08:09 08/04/17 08:09 Labs: Abnormal Lab Results - Last 24 Hours (Table) 08/03/17 08/04/17 08/04/17 Range/Units 22:00 08:09 08:09 Lymphocytes # 0.6 L (1.0-4.8) k/uL Creatinine 0.45 L (0.52-1.04) mg/dL Glucose 159 H (74-99) mg/dL Urine Protein 1+ H (Negative) Urine Mucus Occasional H (None) /hpf Microbiology - Last 24 Hours (Table) 08/03/17 14:00 Blood Culture - Preliminary Blood No Growth after 24 hours 08/03/17 22:00 Urine Culture - Preliminary Urine,Voided Assessment and Plan Assessment: Altered mental status and found on floor. Resolved now. Unlikely encephalopathy. Syncope likely due to dehydration and volume depletion and infection. Ruled out acute CVA. CT head negative Acute influenza A infection History of severe peripheral vascular disease and multiple aortic and femoral surgeries COPD with exacerbation Fibromyalgia and chronic pain Hyperlipidemia Hypertension Osteoarthritis and history of cervical fusion History of right foot gangrene History of right carotid endarterectomy DVT prophylaxis Plan: Patient be continued on IV fluids. Continue the Tamiflu. Currently patient is awake and oriented. CT head negative for any acute CVA. Continue the home medications. Patient also will be continued on breathing treatments and IV steroids and empiric antibiotics. Follow up closely. Patient was seen by neurology.. Further recommendations based on the clinical course. Time with Patient: Greater than 30
--- NOTE | 2017-08-05 23:42 | P.PN ---
Subjective Progress Note Date: 08/05/17 Principal diagnosis: Acute influenza A infection Patient is a 62-year-old female with a known history of COPD not on home oxygen , fibromyalgia, chronic pain, and severe peripheral vascular disease with history of I aortic and femoral popliteal surgeries was found on the kitchen floor by her 445 this morning she was quite altered mental status she was confused she Repeating things and family wanted to bring her to the hospital and she refused to come to the hospital at this state continued for about 5-6 hours when finally she agreed to come to the hospital. Patient has been cough and cold for the past 2-3 days. she is complaining about shortness of breath and then she spiked a fever and her fever was 102.3 in the ER, complaining about chest pain complaining about shortness of breath and she has been coughing. no abdominal pain no frequency urgency dysuria. Patient says that she might have sleep apnea on the floor and has been having some left ankle pain and otherwise denied any head injury or any other pain. Denied any history of seizures. No history of CVA in the past. No bladder or bowel incontinence. Chest x-ray showed COPD and possible interstitial pneumonitis CT head showed no acute intracranial process. 08/04/2017 Patient did improve clinically otherwise patient is still requiring oxygen by another cannula. Patient has been afebrile now. No commerce of chest pain or worsening shortness of breath. Otherwise patient is eager to be discharged home. X-ray of thoracic spine showed posterior sixth rib possible fracture. 08/05/2017 Reason status improved today. Shortness of breath with ambulation. Otherwise saturating well on room air. Continues to be on IV steroids. Anticipate discharge tomorrow with tapping steroids and Tamiflu course. Patient will need to follow with pulmonary clinic. Otherwise patient wants to be discharged. All other review of systems negative except about Current medications reviewed. Objective - Vital Signs Vital signs: Vital Signs Temp 98.1 F 08/05/17 14:54 Pulse 84 08/05/17 19:43 Resp 18 08/05/17 14:54 BP 142/72 08/05/17 14:54 Pulse Ox 94 L 08/05/17 14:54 Intake & Output 08/05/17 08/05/17 08/06/17 06:59 18:59 06:59 Intake Total 980 Balance 980 Intake: Oral 980 Other: Voiding Method Toilet Toilet # Voids 2 2 - Exam PHYSICAL EXAMINATION: Patient is lying in the bed comfortably, no acute distress, awake alert and oriented.. HEENT: Normocephalic. Neck is supple. Pupils reactive. Nostrils clear. Oral cavity is moist. Ears reveal no drainage. Neck reveals no JVD, carotid bruits, or thyromegaly. CHEST EXAMINATION: Trachea is central. Symmetrical expansion. Minimal right basilar crackles. Diminished air entry basally bilaterally. CARDIAC: Normal S1, S2 with no gallops. No murmurs ABDOMEN: Soft. Bowel sounds normal. No organomegaly. No abdominal bruits. Extremities: reveal no edema. No clubbing or cyanosis Neurologically awake, alert, oriented x3 with well-coordinated movements. No focal deficits noted Skin: No rash or skin lesions. Psychiatric: Cooperative. Nonsuicidal Musculoskeletal: No joint swelling or deformity. Normal range of motion. - Labs CBC & Chem 7: 08/04/17 08:09 08/04/17 08:09 Labs: Microbiology - Last 24 Hours (Table) 08/03/17 14:00 Blood Culture - Preliminary Blood No Growth after 48 hours 08/03/17 22:00 Urine Culture - Final Urine,Voided Assessment and Plan Assessment: Altered mental status and found on floor. Resolved now. Unlikely encephalopathy. Syncope likely due to dehydration and volume depletion and infection. Ruled out acute CVA. CT head negative Acute influenza A infection History of severe peripheral vascular disease and multiple aortic and femoral surgeries COPD with exacerbation Fibromyalgia and chronic pain Hyperlipidemia Hypertension Osteoarthritis and history of cervical fusion History of right foot gangrene History of right carotid endarterectomy DVT prophylaxis Plan: Patient be continued on IV fluids. Continue the Tamiflu. Currently patient is awake and oriented. CT head negative for any acute CVA. Continue the home medications. Patient also will be continued on breathing treatments and IV steroids and empiric antibiotics. Follow up closely. Patient was seen by neurology.. Further recommendations based on the clinical course. Time with Patient: Greater than 30
[2017-08-06] MEDS ORDERED: MAGNESIUM HYDROXIDE 2,400 MG/10 ML CUP PO PRN (00:36)
[2017-08-06] MEDS ORDERED: ONDANSETRON 4 MG/2 ML VIAL IVP PRN (00:36)
[2017-08-06] MEDS: MORPHINE SULFATE ER 30 MG TABLET PO PRN (05:04)
[2017-08-06] MEDS: SENNOSIDES 8.6 MG TAB PO SCH ×2 (05:05→09:23)
[2017-08-06] MEDS: methylPREDNISolone SOD SUCCI 125 MG/2 ML VIAL IV SCH ×2 (06:38→11:30)
[2017-08-06] MEDS: BUDESONIDE 1 MG/2 ML NEBU INHALATION SCH (08:17)
[2017-08-06] MEDS: IPRATROPIUM 0.5 MG/2.5 ML NEBU INHALATION SCH ×2 (08:17→12:10)
[2017-08-06 08:32] VITALS: BP 183/88; TEMP 97
[2017-08-06] MEDS: OSELTAMIVIR 75 MG CAP PO SCH (09:23)
[2017-08-06] MEDS: CARVEDILOL 12.5 MG TAB PO SCH (09:23)
[2017-08-06] MEDS: NICOTINE 21MG/24HR PATCH TRANSDERM SCH (09:23)
[2017-08-06] MEDS: CLOPIDOGREL 75 MG TAB PO SCH (09:24)
[2017-08-06] MEDS: ENOXAPARIN 40 MG/0.4 ML SYRINGE SQ SCH (09:24)
[2017-08-06] MEDS: LOSARTAN 50 MG TAB PO SCH (09:24)
[2017-08-06] MEDS: PANTOPRAZOLE 40 MG TABLET PO SCH (09:24)
[2017-08-06] MEDS: LORATADINE 10 MG TAB PO SCH (09:24)
[2017-08-06] MEDS: PRAVASTATIN SODIUM 20 MG TAB PO SCH (09:24)
[2017-08-06] MEDS: HYDROCHLOROTHIAZIDE 25 MG TAB PO SCH (09:24)
[2017-08-06] MEDS: LEVOFLOXACIN 500 MG TAB PO SCH ×2 (11:29→11:31)
[2017-08-06] MEDS: oxyCODONE-APAP 5-325MG 1 EACH TAB PO PRN (11:36)
[2017-08-06] MEDS ORDERED: predniSONE 50 MG TAB PO SCH (12:00)
[2017-08-06 12:46] VITALS: PULSE 80
--- NOTE | 2017-08-06 12:59 | P.PN ---
Subjective Progress Note Date: 08/05/17 (Late entry note) Principal diagnosis: Acute influenza A pneumonia, acute hypoxic respirator failure, severe COPD emphysema, status post fall, left sixth rib fracture acute, severe degree of peripheral arterial disease with multiple interventions in the past, hypertension and hypertensive cardiovascular disease dyslipidemia 08/05/2017, patient seen and evaluated examined during the rounds cuff congestion shortness was slightly improved patient has been consistently wishes to go home however it appears that she is not ready she still needs the antibiotics breathing treatment and supportive care as high risk and therefore readmission as discussed with the patient's family and patient at length patient is agreeable to stay for now laboratory data and radiographic studies reviewed and compared Patient is a 62-year-old female with a known history of COPD not on home oxygen , fibromyalgia, chronic pain, and severe peripheral vascular disease with history of I aortic and femoral popliteal surgeries was found on the kitchen floor by her 445 this morning she was quite altered mental status she was confused she Repeating things and family wanted to bring her to the hospital and she refused to come to the hospital at this state continued for about 5-6 hours when finally she agreed to come to the hospital. Patient has been cough and cold for the past 2-3 days. she is complaining about shortness of breath and then she spiked a fever and her fever was 102.3 in the ER, complaining about chest pain complaining about shortness of breath and she has been coughing. no abdominal pain no frequency urgency dysuria. Patient says that she might have sleep apnea on the floor and has been having some left ankle pain and otherwise denied any head injury or any other pain. Denied any history of seizures. No history of CVA in the past. No bladder or bowel incontinence. Chest x-ray showed COPD and possible interstitial pneumonitis CT head showed no acute intracranial process Objective - Vital Signs Vital signs: Vital Signs Temp 97.0 F L 08/06/17 07:00 Pulse 80 08/06/17 12:25 Resp 18 08/06/17 08:00 BP 183/88 08/06/17 07:00 Pulse Ox 91 L 08/06/17 07:00 Intake & Output 08/05/17 08/06/17 08/06/17 18:59 06:59 18:59 Weight 49.895 kg Other: Voiding Method Toilet Toilet Toilet # Voids 2 2 - Exam PHYSICAL EXAMINATION: Patient is lying in the bed comfortably, no acute distress, awake alert and oriented. Family present at bedside HEENT: Normocephalic. Neck is supple. Pupils reactive. Nostrils clear. Oral cavity is moist. Ears reveal no drainage. Neck reveals no JVD, carotid bruits, or thyromegaly. CHEST EXAMINATION: Trachea is central. Symmetrical expansion. Bilateral rhonchi and crackles and diminished air entry bilaterally with prolonged expiratory phase CARDIAC: Normal S1, S2 with no gallops. No murmurs ABDOMEN: Soft. Bowel sounds normal. No organomegaly. No abdominal bruits. Extremities: reveal no edema. No clubbing or cyanosis Neurologically awake, alert, oriented x3 with well-coordinated movements. No focal deficits noted Skin: No rash or skin lesions. Psychiatric: Cooperative. Nonsuicidal Musculoskeletal: No joint swelling or deformity. Normal range of motion. - Labs CBC & Chem 7: 08/04/17 08:09 08/04/17 08:09 Labs: Microbiology - Last 24 Hours (Table) 08/03/17 14:00 Blood Culture - Preliminary Blood No Growth after 48 hours 08/03/17 22:00 Urine Culture - Final Urine,Voided - Imaging and Cardiology Chest x-ray: report reviewed, image reviewed (Finding as noted above) Assessment and Plan Assessment: Acute hypoxic respiratory failure Acute influenza A pneumonia Possible secondary bacterial pneumonia Acute COPD exacerbation with baseline severe COPD emphysema Status post fall syncope likely related to respiratory process with secondary intravascular volume depletion and dehydration Peripheral arterial disease with multiple interventions in the past Hypertension hypertensive cardiovascular disease dyslipidemia Plan: Continue breathing treatments IV steroids and bronchodilator Continue gentle hydration increase activity as tolerated Specific therapy with Tamiflu Patient is not ready for discharge continue current supportive care care plan discussed with the primary service patient and family at length Time with Patient: Greater than 30
--- NOTE | 2017-08-06 13:02 | P.PN ---
Subjective Progress Note Date: 08/06/17 Principal diagnosis: Acute influenza A pneumonia, acute hypoxic respirator failure, severe COPD emphysema, status post fall, left sixth rib fracture acute, severe degree of peripheral arterial disease with multiple interventions in the past, hypertension and hypertensive cardiovascular disease dyslipidemia 08/06/2017, patient seen and evaluated examined during the rounds cuff congestion shortness breath is improved patient able to get up and move around in the room severity or shortness of breath and cuff congestion spiking fever has improved as well she continued to wishes to go home she has been consult at length about smoking cessation 08/05/2017, patient seen and evaluated examined during the rounds cuff congestion shortness was slightly improved patient has been consistently wishes to go home however it appears that she is not ready she still needs the antibiotics breathing treatment and supportive care as high risk and therefore readmission as discussed with the patient's family and patient at length patient is agreeable to stay for now laboratory data and radiographic studies reviewed and compared Patient is a 62-year-old female with a known history of COPD not on home oxygen , fibromyalgia, chronic pain, and severe peripheral vascular disease with history of I aortic and femoral popliteal surgeries was found on the kitchen floor by her 445 this morning she was quite altered mental status she was confused she Repeating things and family wanted to bring her to the hospital and she refused to come to the hospital at this state continued for about 5-6 hours when finally she agreed to come to the hospital. Patient has been cough and cold for the past 2-3 days. she is complaining about shortness of breath and then she spiked a fever and her fever was 102.3 in the ER, complaining about chest pain complaining about shortness of breath and she has been coughing. no abdominal pain no frequency urgency dysuria. Patient says that she might have sleep apnea on the floor and has been having some left ankle pain and otherwise denied any head injury or any other pain. Denied any history of seizures. No history of CVA in the past. No bladder or bowel incontinence. Chest x-ray showed COPD and possible interstitial pneumonitis CT head showed no acute intracranial process Objective - Vital Signs Vital signs: Vital Signs Temp 97.0 F L 08/06/17 07:00 Pulse 80 08/06/17 12:25 Resp 18 08/06/17 08:00 BP 183/88 08/06/17 07:00 Pulse Ox 91 L 08/06/17 07:00 Intake & Output 08/05/17 08/06/17 08/06/17 18:59 06:59 18:59 Weight 49.895 kg Other: Voiding Method Toilet Toilet Toilet # Voids 2 2 - Exam PHYSICAL EXAMINATION: Patient is lying in the bed comfortably, no acute distress, awake alert and oriented. Family present at bedside HEENT: Normocephalic. Neck is supple. Pupils reactive. Nostrils clear. Oral cavity is moist. Ears reveal no drainage. Neck reveals no JVD, carotid bruits, or thyromegaly. CHEST EXAMINATION: Trachea is central. Symmetrical expansion. Bilateral rhonchi and crackles and diminished air entry bilaterally with prolonged expiratory phase, improved compared to yesterday exam significant CARDIAC: Normal S1, S2 with no gallops. No murmurs ABDOMEN: Soft. Bowel sounds normal. No organomegaly. No abdominal bruits. Extremities: reveal no edema. No clubbing or cyanosis Neurologically awake, alert, oriented x3 with well-coordinated movements. No focal deficits noted Skin: No rash or skin lesions. Psychiatric: Cooperative. Nonsuicidal Musculoskeletal: No joint swelling or deformity. Normal range of motion. - Labs CBC & Chem 7: 08/04/17 08:09 08/04/17 08:09 Labs: Microbiology - Last 24 Hours (Table) 08/03/17 14:00 Blood Culture - Preliminary Blood No Growth after 48 hours 08/03/17 22:00 Urine Culture - Final Urine,Voided Assessment and Plan Assessment: Acute hypoxic respiratory failure Acute influenza A pneumonia Possible secondary bacterial pneumonia Acute COPD exacerbation with baseline severe COPD emphysema Status post fall syncope likely related to respiratory process with secondary intravascular volume depletion and dehydration Peripheral arterial disease with multiple interventions in the past Hypertension hypertensive cardiovascular disease dyslipidemia Generalized weakness and medical debility due to multiple comorbidities and acute pneumonia Plan: Continue breathing treatments antibiotics and prednisone IV can be switched to by mouth can be discharged home on tapering steroids antibiotics patient does have a nebulizer machine and medicine at home will recommend follow-up in one week as outpatient Continue gentle hydration increase activity as tolerated Specific therapy with Tamiflu to finish prescribed course of therapy Patient is not ready for discharge continue current supportive care care plan discussed with the primary service patient and family at length Time with Patient: Greater than 30
--- NOTE | 2017-08-06 14:26 | CONS ---
CONSULTATION DATE OF SERVICE: August 04, 2017. This is a delayed dictation. Services performed August 04. REASON FOR CONSULT: Shortness of breath, severe COPD, and acute flu. HISTORY OF PRESENTING ILLNESS: Ms. Mavis Benítez is a 62-year-old female with a history of severe COPD and end-stage lung disease. The patient has not been feeling well for 5-6 days with increasing cough, congestion, shortness of breath, and feverish feeling. The patient was found on the floor on the day of admission by the . However, patient was readily arousable. She spiked a fever of 102. The patient was extremely reluctant to come into the hospital and eventually at the end of the day was brought into the emergency department where she was found to have a fever of 101, and subsequently admitted to the hospital for further evaluation intervention and treatment. In addition to above, patient has been complaining of cough which is dry and nonproductive, shortness of breath and has issues associated with some chest tightness and lower thoracic wall pain due to excessive coughing. The patient underwent a chest x-ray and CT scan of the head, which failed to reveal any acute intracranial abnormality, EKG performed in the emergency department revealed normal sinus rhythm, no significant ST or T-wave changes seen. Chest x-ray performed in the emergency department revealed prominent interstitium, interstitial edema with interstitial pneumonitis and pneumonia cannot be excluded. Subsequently, patient had a rib x-ray which revealed posterior fixed left rib fracture. Thoracic spine x-ray revealed no acute fracture or osteopenia and osteoarthritis was seen. PAST MEDICAL HISTORY: Is significant for chronic persistent asthma, severe COPD, coronary artery disease, history of deep venous thrombosis, chronic fibromyalgia and GERD, dyslipidemia, hypertension, hypertensive cardiovascular disease. Degenerative joint disease. Osteoarthritis. 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 History of EGD, colonoscopy, cervical fusion, status of left knee total arthroplasty. Umbilical hernia repair, bilateral carpal tunnel release. History of breast biopsy which was negative for neoplastic process. FAMILY HISTORY AND SOCIAL HISTORY: Smokes half to 1 pack per day. Strong history of coronary artery disease and renal disease on the paternal side. History of coronary artery disease on maternal side as well as sibling with history of stroke. Strong history of lung cancer on maternal side. ALLERGIES: Include iodinated contrast agent, cephalexin, NSAID, penicillin, Band-Aid. MEDICATIONS: At home include Coreg 25 mg p.o. 2 times a day. Cetirizine 10 mg daily, hydrochlorothiazide 25 mg daily, losartan 100 mg daily. Morphine 30 mg as needed extended release. Prilosec 20 mg p.o. 2 times a day. Pravachol 20 mg daily. Plavix 75 mg daily. Atrovent HFA 2 puffs 4 times a day. The patient has been on a Z-Jm at the time of admission, along with baclofen 10 mg 3 times a day. Fluticasone, DuoNeb unit dose 4 times a day, oxycodone, and prednisone 20 mg daily. REVIEW OF SYSTEMS: Otherwise unremarkable and noncontributory. No history of seizure, likely loss of consciousness, hemiparesis. No history of bowel or bladder incontinence. CURRENT MEDICATIONS WHILE IN THE HOSPITAL: Includes DuoNeb unit dose 4 times a day and also on Pulmicort 2 times a day. Coreg 25 mg b.i.d., Plavix 75 mg daily, Lovenox 40 mg daily. Hydrochlorothiazide 25 mg daily. Levaquin 500 mg daily. Loratadine 10 mg daily. Losartan 100 mg daily. Milk of magnesia. MS Contin. Nicotine patch. Zofran. Tamiflu 75 b.i.d. Also on oxycodone. Protonix 40 mg daily. Pravastatin 20 mg daily and IV Solu-Medrol 60 mg q.6 hours as needed. EXAMINATION: Most recent vitals include T-max of 102.8, blood pressure 131/82, respiratory rate is 20, heart rate is 98, temperature as above 102.8, saturation 95%. He did drop down to 87%. HEENT: Atraumatic, normocephalic. Pharynx is clear. Narrow pharyngeal opening is present. NECK: Supple without lymphadenopathy or jugular venous distention or carotid bruits. LUNGS: Bilateral coarse breath sounds, inspiratory and expiratory rhonchi and crackles are present. HEART: Regular rate and rhythm, S1, S2 audible. ABDOMEN: Soft. No rebound, rigidity. EXTREMITIES: +1 pedal pulses. NEUROLOGIC EXAMINATION: Otherwise awake, alert. No focal neurological deficit. LABORATORY DATA: Reviewed. White cell count is 7300, hemoglobin and hematocrit 12 and 38, platelet count 234,000. PT, PTT, INR within normal limits. Chemistry normal with BUN 21. LFTs are normal. Urinalysis: A few WBC, RBC is present. Influenza A positive by RNA. IMPRESSION: 1. Acute hypoxic respiratory failure related to influenza A pneumonia. 2. Influenza A pneumonia. 3. Possible secondary bacterial pneumonia cannot be excluded. 4. Severe chronic obstructive pulmonary disease, emphysema with acute on chronic hypoxic respiratory failure. 5. Peripheral arterial disease with history of multiple intervention in the past. 6. Status post fall and loss of consciousness, likely related to respiratory processes. 7. Sixth left rib fracture. 8. End-stage lung disease, significant severe chronic obstructive pulmonary disease and emphysema. PLAN: I agree with IV steroids, breathing treatment and antibiotics. Continue supportive care. Maintain patient on DVT peptic ulcer disease prophylaxis. Increase activity as tolerated. Continue other supportive care. Will follow clinical course closely with further recommendations pending. MMODL / IJN: [id number] /
--- NOTE | 2017-08-10 19:04 | EEG ---
ELECTROENCEPHALOGRAM REPORT DATE OF SERVICE: 08/04/2017 REASON FOR TESTING: Syncope. DESCRIPTION OF THE PROCEDURE: This EEG was performed using a 21 channel digital electroencephalograph, following international 10-20 system. DESCRIPTION OF THE RECORDING: From the beginning of the tracing, and with patient's eyes closed, the background rhythm was mostly consisting of 9 Hz alpha frequency in the posterior occipital leads. No obvious asymmetry is seen. Photic stimulation was performed with a good driving response seen. No pathological waves were elicited. Hyperventilation was not performed. Rare movement artifacts are seen. The patient remains awake throughout the tracing. No epileptiform discharges were seen. Her EKG lead showed a regular rate and rhythm. INTERPRETATION: This awake EEG can be considered within normal limits. There was no asymmetry seen. No epileptiform discharges were noticed. The absence of epileptiform discharges does not rule out the diagnosis of epilepsy, therefore clinical correlation is recommended. MMJACKIEL / IJJohnny: [id number] /
--- NOTE | 2017-09-05 21:57 | P.DS ---
Providers Date of admission: 08/03/17 16:54 Expected date of discharge: 08/06/17 Attending physician: Homer Rodriguez Consults: 08/03/17 16:54 Consult Physician Stat Consulting Provider: Deny Christiansen Consult Reason/Comments: Severe COPD Do you want consulting provider notified?: Yes Consult Physician Stat Consulting Provider: Aisha Hall Consult Reason/Comments: Syncope, altered mental status Do you want consulting provider notified?: Yes Primary care physician: Carlton Orozco Hospital Course: Discharge diagnosis Altered mental status and found on floor. Resolved now. Unlikely encephalopathy. Syncope likely due to dehydration and volume depletion and infection. Ruled out acute CVA. CT head negative Acute influenza A infection History of severe peripheral vascular disease and multiple aortic and femoral surgeries COPD with exacerbation Fibromyalgia and chronic pain Hyperlipidemia Hypertension Osteoarthritis and history of cervical fusion History of right foot gangrene History of right carotid endarterectomy DVT prophylaxis Hospital course Patient is a 62-year-old female with a known history of COPD not on home oxygen , fibromyalgia, chronic pain, and severe peripheral vascular disease with history of I aortic and femoral popliteal surgeries was found on the kitchen floor by her 445 this morning she was quite altered mental status she was confused she Repeating things and family wanted to bring her to the hospital and she refused to come to the hospital at this state continued for about 5-6 hours when finally she agreed to come to the hospital. Patient has been cough and cold for the past 2-3 days. she is complaining about shortness of breath and then she spiked a fever and her fever was 102.3 in the ER, complaining about chest pain complaining about shortness of breath and she has been coughing. no abdominal pain no frequency urgency dysuria. Patient says that she might have sleep apnea on the floor and has been having some left ankle pain and otherwise denied any head injury or any other pain. Denied any history of seizures. No history of CVA in the past. No bladder or bowel incontinence. Chest x-ray showed COPD and possible interstitial pneumonitis CT head showed no acute intracranial process. 08/04/2017 Patient did improve clinically otherwise patient is still requiring oxygen by another cannula. Patient has been afebrile now. No commerce of chest pain or worsening shortness of breath. Otherwise patient is eager to be discharged home. X-ray of thoracic spine showed posterior sixth rib possible fracture. 08/05/2017 Patient's status improved today. Shortness of breath with ambulation. Otherwise saturating well on room air. Continues to be on IV steroids. Anticipate discharge tomorrow with tapping steroids and Tamiflu course. Patient will need to follow with pulmonary clinic. Otherwise patient wants to be discharged. 08/06/2017 Patient did improve clinically. No complaints of chest pain or shortness of breath. Patient is stable to be discharged. Discharge physical examination was done and vitals reviewed. Patient Condition at Discharge: Fair Plan - Discharge Summary Discharge Rx Participant: Yes New Discharge Prescriptions: New Levofloxacin [Levaquin] 500 mg PO DAILY@1400 #3 tab Oseltamivir [Tamiflu] 75 mg PO Q12HR #4 cap predniSONE See Taper PO DAILY #30 tab Continue Cetirizine HCl [Zyrtec] 10 mg PO DAILY Pravastatin Sodium [Pravachol] 20 mg PO DAILY Omeprazole [PriLOSEC] 20 mg PO BID Morphine Sulfate [Morphine Sulfate ER] 30 mg PO DAILY PRN PRN Reason: Pain Hydrochlorothiazide 25 mg PO DAILY Carvedilol 25 mg PO BID Losartan Potassium 100 mg PO DAILY Clopidogrel [Plavix] 75 mg PO DAILY #30 tab Ipratropium Aristes [Atrovent Hfa] 2 puff INHALATION RT-QID Baclofen [Lioresal] 10 mg PO TID PRN PRN Reason: Pain Depo-Medrol Injection 80 mg SQ ONCE Fluticasone Propionate [Flovent Hfa 110mcg] 1 puff INHALATION RT-BID Ipratropium-Albuterol Nebulize [Duoneb 0.5 mg-3 mg/3 ml Soln] 3 ml INHALATION RT-QID PRN PRN Reason: sob oxyCODONE-APAP 5-325MG [Percocet 5-325 mg] 1 tab PO DAILY PRN PRN Reason: Pain Discontinued Azithromycin [Zithromax Z-pack] See Taper PO DIRECTED predniSONE 20 mg PO DAILY Discharge Medication List Carvedilol 25 mg PO BID 05/30/15 [History] Cetirizine HCl [Zyrtec] 10 mg PO DAILY 05/30/15 [History] Hydrochlorothiazide 25 mg PO DAILY 05/30/15 [History] Losartan Potassium 100 mg PO DAILY 05/30/15 [History] Morphine Sulfate [Morphine Sulfate ER] 30 mg PO DAILY PRN 05/30/15 [History] Omeprazole [PriLOSEC] 20 mg PO BID 05/30/15 [History] Pravastatin Sodium [Pravachol] 20 mg PO DAILY 05/30/15 [History] Clopidogrel [Plavix] 75 mg PO DAILY #30 tab 06/05/15 [Rx] Ipratropium Aristes [Atrovent Hfa] 2 puff INHALATION RT-QID 10/27/15 [History] Baclofen [Lioresal] 10 mg PO TID PRN 08/03/17 [History] Depo-Medrol Injection 80 mg SQ ONCE 08/03/17 [History] Fluticasone Propionate [Flovent Hfa 110mcg] 1 puff INHALATION RT-BID 08/03/17 [ History] Ipratropium-Albuterol Nebulize [Duoneb 0.5 mg-3 mg/3 ml Soln] 3 ml INHALATION RT -QID PRN 08/03/17 [History] oxyCODONE-APAP 5-325MG [Percocet 5-325 mg] 1 tab PO DAILY PRN 08/03/17 [History] Levofloxacin [Levaquin] 500 mg PO DAILY@1400 #3 tab 08/06/17 [Rx] Oseltamivir [Tamiflu] 75 mg PO Q12HR #4 cap 08/06/17 [Rx] predniSONE See Taper PO DAILY #30 tab 08/06/17 [Rx] Follow up Appointment(s)/Referral(s): Carlton Orozco MD [Primary Care Provider] - 1-2 days Deny Christiansen MD [STAFF PHYSICIAN] - 1 Week Patient Instructions/Handouts: COPD (Chronic Obstructive Pulmonary Disease) (DC ) Activity/Diet/Wound Care/Special Instructions: NO SMOKING. REFRAIN FROM SMALL CHILDREN UNTIL TAMIFLU IS FINISHED. Discharge Disposition: HOME SELF-CARE
== END 2017-08-06 13:15 | disposition home or self-care (01) | DRG 193 ==
LOC: EC 12:57 → 5MS5E 16:54 → 4MS4W 17:52
PROVIDERS: ADMIT Hospitalist; ATTEND Hospitalist
DX: J10.08 Influenza due to other identified influenza virus with other specified pneumonia (principal); J96.21 Acute and chronic respiratory failure with hypoxia; J84.89 Other specified interstitial pulmonary diseases; S22.32XA Fracture of one rib, left side, initial encounter for closed fracture; I11.9 Hypertensive heart disease without heart failure; J44.0 Chronic obstructive pulmonary disease with (acute) lower respiratory infection; E78.5 Hyperlipidemia, unspecified; J12.89 Other viral pneumonia; E86.0 Dehydration; F17.200 Nicotine dependence, unspecified, uncomplicated; G89.29 Other chronic pain; I25.10 Atherosclerotic heart disease of native coronary artery without angina pectoris; I73.9 Peripheral vascular disease, unspecified; J44.1 Chronic obstructive pulmonary disease with (acute) exacerbation; K21.9 Gastro-esophageal reflux disease without esophagitis; M19.90 Unspecified osteoarthritis, unspecified site; J15.9 Unspecified bacterial pneumonia; M79.7 Fibromyalgia; Z79.02 Long term (current) use of antithrombotics/antiplatelets; Z79.51 Long term (current) use of inhaled steroids; Z79.899 Other long term (current) drug therapy; Z80.1 Family history of malignant neoplasm of trachea, bronchus and lung; Z82.3 Family history of stroke; Z82.49 Family history of ischemic heart disease and other diseases of the circulatory system; Z85.828 Personal history of other malignant neoplasm of skin; Z86.718 Personal history of other venous thrombosis and embolism; Z90.49 Acquired absence of other specified parts of digestive tract; Z90.710 Acquired absence of both cervix and uterus; Z95.1 Presence of aortocoronary bypass graft; Z98.1 Arthrodesis status; Z88.0 Allergy status to penicillin; Z88.6 Allergy status to analgesic agent; Z88.1 Allergy status to other antibiotic agents; Z91.041 Radiographic dye allergy status; Z79.891 Long term (current) use of opiate analgesic; Z79.52 Long term (current) use of systemic steroids
CPT/HCPCS: 36415; 70450; 71046; 72072; 80048; 80053; 81001; 82550; 82553; 83605; 84484; 85025; 85610; 85730; 87040; 87086; 87502; 93005; 94640; 95819; 96361; 96365; 99285

== ENCOUNTER → 2019-02-22 | Outpatient (CLI) | payer BC ==
--- NOTE | 2019-02-22 09:40 | XR ---
EXAMINATION TYPE: XR chest 2V DATE OF EXAM: 02/22/2019 COMPARISON: August 04, 2018 HISTORY: Shortness of breath TECHNIQUE: Frontal and lateral views of the chest are obtained. FINDINGS: Scattered senescent parenchymal changes noted. Hyperinflation compatible with COPD. No evidence for infiltrate. No evidence for atelectasis. Heart size is stable. Mediastinal structures are stable and grossly unremarkable. No evidence for hilar prominence. Degenerative changes dorsal spine. IMPRESSION: 1. No evidence for acute pulmonary disease.
== END | disposition home or self-care (01) ==
LOC: RADXRMAIN 09:13
PROVIDERS: ATTEND Family Medicine
DX: J44.1 Chronic obstructive pulmonary disease with (acute) exacerbation (principal)
CPT/HCPCS: 71046

== ENCOUNTER → 2019-07-13 | Outpatient (CLI) | payer BC ==
--- NOTE | 2019-07-16 11:25 | MM ---
Reason for exam: screening (asymptomatic). Last mammogram was performed 21 years and 4 months ago. History: Patient is postmenopausal. Benign excisional biopsy of the left breast, April 04, 1998. Excisional biopsy of the right breast. Took hormonal contraceptives beginning at age 17. Physical Findings: A clinical breast exam by your physician is recommended on an annual basis and results should be correlated with mammographic findings. MG Screening Mammo w CAD Bilateral CC and MLO view(s) were taken. No prior studies available for comparison. The breast tissue is heterogeneously dense. This may lower the sensitivity of mammography. Finding: There are typically benign round calcifications. Focal asymmetry left posterior MLO view 7-8cm from the nipple. ASSESSMENT: Incomplete: need additional imaging evaluation, BI-RAD 0 RECOMMENDATION: Special view mammogram of the left breast. If lesion persists on supplemental views, image directed ultrasound is recommended. [facility] will attempt to contact patient to return for supplemental views and ultrasound if indicated.
== END | disposition home or self-care (01) ==
LOC: RADMAMWWP 14:49
PROVIDERS: ATTEND Family Medicine
DX: Z12.31 Encounter for screening mammogram for malignant neoplasm of breast (principal)
CPT/HCPCS: 77067

== ENCOUNTER → 2019-07-24 | Outpatient (CLI) | payer BC ==
--- NOTE | 2019-07-24 11:48 | MM ---
Reason for exam: additional evaluation requested from abnormal screening. Last mammogram was performed less than 1 month ago. History: Patient is postmenopausal and history of other cancer. Benign excisional biopsy of the left breast, April 04, 1998. Excisional biopsy of the right breast. Took hormonal contraceptives beginning at age 17. Physical Findings: Nurse did not find any significant physical abnormalities on exam. MG Work Up Mamm w CAD LT LM and spot compression MLO view(s) were taken of the left breast. Prior study comparison: July 13, 2019, bilateral MG screening mammo w CAD. The breast tissue is heterogeneously dense. This may lower the sensitivity of mammography. Regional/loosely grouped calcifications posterior upper outer quadrant. Asymmetric density posteriorly seen on screening not seen on compression views. Global asymmetry upper outer quadrant. Ultrasound recommended. These results were verbally communicated with the patient and result sheet given to the patient on 07/24/19. ASSESSMENT: Incomplete: need additional imaging evaluation, BI-RAD 0 RECOMMENDATION: Ultrasound of the left breast. (11-4 o'clock)
--- NOTE | 2019-07-24 11:52 | USB ---
Reason for exam: additional evaluation requested from abnormal screening. History: Patient is postmenopausal and history of other cancer. Benign excisional biopsy of the left breast, April 04, 1998. Excisional biopsy of the right breast. Took hormonal contraceptives beginning at age 17. US Breast Workup Limited LT Left limited breast ultrasound including focal area of concern, retroareolar and axilla demonstrates heterogenous tissue at area of scar, biopsy recommended and a 0.3 x 0.3 x 0.3cm lesion too small to characterize at superior axilla, skin line anechoic lesion, possibly cutaneous lesion, 6 month follow up recommended. Scanned 11-4 o'clock. These results were verbally communicated with the patient and result sheet given to the patient on 07/24/19. ASSESSMENT: Suspicious, BI-RAD 4 RECOMMENDATION: Surgical consultation and ultrasound core biopsy of the left breast. Called Dr. Orozco's office with mammographic findings and has scheduled an appointment for the patient for 08/16/19 at 10:[address] Nogueira. Biopsy scheduled for 08/16/19 at 12:20. PRELIMINARY REPORT CALLED AND FAXED TO DR. NOGUEIRA ON 07/24/19.
== END | disposition home or self-care (01) ==
LOC: RADMAMWWP 08:47
PROVIDERS: ATTEND Family Medicine
DX: R92.8 Other abnormal and inconclusive findings on diagnostic imaging of breast (principal)
CPT/HCPCS: 77065

== ENCOUNTER → 2019-08-16 | Day surgery (SDC) | payer BC ==
--- NOTE | 2019-08-16 13:20 | USB ---
EXAMINATION TYPE: US discontinued breast bx LT DATE OF EXAM: 08/16/2019 CLINICAL HISTORY: Breast mass by ultrasound. TECHNIQUE: Real-time linear array sonography is performed over the left breast for localization for mass. Real-time observation a real-time scanning is performed. This exam is compared to 07/24/2019 COMPARISON: Ultrasound left breast to 10/08/2019 FINDINGS: Slightly hypoechoic parenchymal tissue is partially visualized. However, this appears to extend into the parenchymal tissue smoothly. A definite solid lesion is not identified. Under real-time scanning and sonography persistent suspicious ultrasound abnormality is not identified. Monitoring is recommen ded. IMPRESSION: 1. Left breast biopsy aborted prior to skin incision. 2. Probably Benign findings, left breast. 3. BI-RADS 3, ultrasound Recommendations: 1. Clinical management of any palpable abnormality. Negative ultrasound should not preclude biopsy of suspicious palpable abnormalities. 2. In the absence of clinically suspicious findings, short-term follow-up left breast ultrasound with attention to the 2:00 position is recommended. 3. Patient should continue monthly self breast exam.
[2019-08-16 13:36] VITALS: RESP 12; TEMP 98.7
[2019-08-16 13:49] VITALS: BP 146/56; PULSE 88
== END ==
LOC: RADUSWWP 11:09
PROVIDERS: ATTEND Surgery
DX: R92.8 Other abnormal and inconclusive findings on diagnostic imaging of breast (principal); Z88.6 Allergy status to analgesic agent; Z88.0 Allergy status to penicillin; Z91.048 Other nonmedicinal substance allergy status

== ENCOUNTER 2020-02-20 01:54 | Emergency (ER) | payer BC ==
[2020-02-20] MEDS ORDERED: SODIUM CHLORIDE 0.9% 500 ML 500 ML IV STA (02:06)
[2020-02-20] MEDS ORDERED: HYDROmorphone 0.5 MG/0.5 ML SYRINGE IVP STA (02:07)
[2020-02-20] MEDS ORDERED: methylPREDNISolone SOD SUCCI 125 MG/2 ML VIAL IV STA (02:07)
[2020-02-20] MEDS ORDERED: diphenhydrAMINE 50 MG/ML 1 ML VIAL IVP STA (02:07)
[2020-02-20] MEDS: FAMOTIDINE 20 MG/2 ML VIAL IV SCH ×2 (02:13→02:14)
[2020-02-20 02:30] LABS: Basophils # (A) 0.1 k/uL (0-0.2); Basophils % (A) 1 %; Eosinophils # (A) 0.1 k/uL (0-0.7); Eosinophils % (A) 1 %; HCT 42.5 % (34.0-46.0); HGB 14.1 gm/dL (11.4-16.0); Lymphocytes # (A) 1.5 k/uL (1.0-4.8); Lymphocytes % (A) 12 %; MCH 30.1 pg (25.0-35.0); MCHC 33.3 g/dL (31.0-37.0); MCV 90.3 fL (80.0-100.0); Mean Platelet Volume 7.2; Monocytes # (A) 0.4 k/uL (0-1.0); Monocytes % (A) 3 %; Neutrophils # (A) 10.5 k/uL (1.3-7.7); Neutrophils % (A) 83 %; Platelet Count 306 k/uL (150-450); RBC 4.71 m/uL (3.80-5.40); WBC 12.7 k/uL (3.8-10.6)
[2020-02-20] MEDS ORDERED: ONDANSETRON 4 MG/2 ML VIAL IVP STA ×2 (02:37→05:22)
--- NOTE | 2020-02-20 02:38 | ED ---
General Adult HPI - General Source: patient, RN notes reviewed Mode of arrival: EMS <Karthikeyan Hill P - Last Filed: 02/20/20 03:17> <Nikki Green P - Last Filed: 02/20/20 05:15> - General Chief complaint: Abdominal Pain Stated complaint: Abd Pain Time Seen by Provider: 02/20/20 01:56 - History of Present Illness Initial comments: 64-year-old female with a past medical history of aortic bypass and stenting in 2013 and presents to the emergency department for epigastric pain. Patient states that around 3 hours that he started to have upper abdominal pain. Patient reports she feels bloated. Patient is nauseous and has vomited. She denies diarrhea. She had a normal bowel movement earlier today. Patient denies numbness or tingling to extremities. Denies chest pain or shortness of breath.Patient has no other complaints at this time including shortness of breath, chest pain, mausea or vomiting, headache, or visual changes. (Karthikeyan Hill) - Related Data Home Medications Medication Instructions Recorded Confirmed Carvedilol 25 mg PO BID 05/30/15 08/16/19 Cetirizine HCl [Zyrtec] 10 mg PO DAILY 05/30/15 08/16/19 Losartan Potassium 100 mg PO DAILY 05/30/15 08/16/19 Morphine Sulfate [Morphine Sulfate 30 mg PO DAILY PRN 05/30/15 08/16/19 ER] Omeprazole [PriLOSEC] 20 mg PO DAILY 05/30/15 08/16/19 Pravastatin Sodium [Pravachol] 20 mg PO DAILY 05/30/15 08/16/19 hydroCHLOROthiazide 25 mg PO DAILY 05/30/15 08/16/19 Ipratropium [place] [Atrovent Hfa] 2 puff INHALATION RT-QID 10/27/15 08/16/19 Ipratropium-Albuterol Nebulize 3 ml INHALATION RT-QID PRN 08/03/17 08/16/19 [Duoneb 0.5 mg-3 mg/3 ml Soln] oxyCODONE-APAP 5-325MG [Percocet 1 tab PO DAILY PRN 08/03/17 08/16/19 5-325 mg] [place]-3 Fatty Acids/Fish Oil [Fish 1 each PO DAILY 08/01/19 08/16/19 Oil 1,000 mg Softgel] diphenhydrAMINE [Benadryl] 25 mg PO DAILY PRN 08/01/19 08/16/19 guaiFENesin [Mucinex] 1,200 mg PO DAILY 08/01/19 08/16/19 Previous Rx's Medication Instructions Recorded Clopidogrel [Plavix] 75 mg PO DAILY #30 tab 06/05/15 Allergies Allergy/AdvReac Type Severity Reaction Status Date / Time Iodinated Contrast Media Allergy Mild cold Verified 08/16/19 11:22 [Iodinated Contrast Media - symptoms, IV Dye] runny nose, itchy eyes cough aspirin Allergy Anaphylaxis Verified 08/16/19 11:22 NSAIDS (Non-Steroidal AdvReac Anaphylaxis Verified 08/16/19 11:22 Anti-Inflamma Penicillins AdvReac Anaphylaxis Verified 08/16/19 11:22 Review of Systems ROS Other: All systems not noted in ROS Statement are negative. <Karthikeyan Hill P - Last Filed: 02/20/20 03:17> ROS Other: All systems not noted in ROS Statement are negative. <Nikik Green P - Last Filed: 02/20/20 05:15> ROS Statement: Those systems with pertinent positive or pertinent negative responses have been documented in the HPI. Past Medical History Past Medical History: Asthma, Coronary Artery Disease (CAD), Cancer, COPD, Deep Vein Thrombosis (DVT), Fibromyalgia, GERD/Reflux, Hyperlipidemia, Hypertension, Osteoarthritis (OA), Respiratory Disorder, Vascular Disorder Additional Past Medical History / Comment(s): pad,chronic bronchitis, nodules on thyroid, leukoplakia-lip and vocal cords. past" gangrene on right foot" History of Any Multi-Drug Resistant Organisms: None Reported Past Surgical History: Appendectomy, Section, Cholecystectomy, Hysterectomy, Joint Replacement, Orthopedic Surgery Additional Past Surgical History / Comment(s): leukoplakia removed from lip and vocal cords.cervical fusion,2013 rt aorto iliac bypass,aortogram w/ runoff. 2014 had stenting of aorto to rt ext iliac bypass, rt foot 2nd toe reconstructive sx, rt carotid endarterectomy, egd/colonoscopy ,cervical fusion,lt knee replacment.lt elbow sx,umbilical hernia repair,bilcarpal tunnel release,lt and rt breast bx-neg Past Anesthesia/Blood Transfusion Reactions: Previous Problems w/ Anesthesia, Postoperative Nausea & Vomiting (PONV) Additional Past Anesthesia/Blood Transfusion Reaction / Comment(s): difficulty waking from anesthesia Past Psychological History: Depression Past Alcohol Use History: None Reported Past Drug Use History: None Reported - Past Family History Mother Family Medical History: Cancer, Coronary Artery Disease (CAD), Renal Disease Additional Family Medical History / Comment(s): CABG, LUNG CANCER, Brother(s) Family Medical History: Coronary Artery Disease (CAD), CVA/TIA Additional Family Medical History / Comment(s): 1 BROTHER CABG, 1 BROTHER STROKE Father Family Medical History: Coronary Artery Disease (CAD), Renal Disease Additional Family Medical History / Comment(s): X4 OPEN HEART SX. HUGE CARDIAC HX ON DADS SIDE OF FAMILY <Karthikeyan Hill P - Last Filed: 02/20/20 03:17> General Exam General appearance: alert, in no apparent distress Head exam: Present: atraumatic Eye exam: Present: normal appearance, PERRL, EOMI. Absent: scleral icterus, co njunctival injection, periorbital swelling ENT exam: Present: normal exam, mucous membranes moist Neck exam: Present: normal inspection, full ROM. Absent: tenderness, meningismus, lymphadenopathy Respiratory exam: Present: normal lung sounds bilaterally. Absent: respiratory distress, wheezes, rales, rhonchi, stridor Cardiovascular Exam: Present: regular rate, normal rhythm, normal heart sounds. Absent: bradycardia, tachycardia, irregular rhythm GI/Abdominal exam: Present: soft, distended, tenderness (Tenderness noted to epigastric area.), normal bowel sounds. Absent: guarding, rebound, rigid, pulsatile mass Neurological exam: Present: alert <Karthikeyan Hill P - Last Filed: 02/20/20 03:17> Course Vital Signs 02/20/20 02/20/20 01:58 03:00 Temperature 97.8 F Pulse Rate 95 92 Respiratory 29 H 19 Rate Blood Pressure 184/89 141/63 O2 Sat by Pulse 95 94 L Oximetry EKG Findings - EKG Comments: EKG Findings:: Normal sinus rhythm, ventricular rate 88, FL interval 140, QTC 464 <Karthikeyan Hill P - Last Filed: 02/20/20 03:17> Medical Decision Making - Lab Data Result diagrams: 02/20/20 02:07 02/20/20 02:07 <Karthikeyan Hill P - Last Filed: 02/20/20 03:17> - Lab Data Result diagrams: 02/20/20 02:07 02/20/20 02:07 <Nikki Green P - Last Filed: 02/20/20 05:15> - Lab Data Lab Results 02/20/20 02/20/20 02/20/20 Range/Units 02:06 02:07 02:07 WBC 12.7 H (3.8-10.6) k/uL RBC 4.71 (3.80-5.40) m/uL Hgb 14.1 (11.4-16.0) gm/dL Hct 42.5 (34.0-46.0) % MCV 90.3 (80.0-100.0) fL MCH 30.1 (25.0-35.0) pg MCHC 33.3 (31.0-37.0) g/dL RDW 13.0 (11.5-15.5) % Plt Count 306 (150-450) k/uL Neutrophils % 83 % Lymphocytes % 12 % Monocytes % 3 % Eosinophils % 1 % Basophils % 1 % Neutrophils # 10.5 H (1.3-7.7) k/uL Lymphocytes # 1.5 (1.0-4.8) k/uL Monocytes # 0.4 (0-1.0) k/uL Eosinophils # 0.1 (0-0.7) k/uL Basophils # 0.1 (0-0.2) k/uL PT 9.4 (9.0-12.0) sec INR 0.9 (<1.2) APTT 23.2 (22.0-30.0) sec Sodium (137-145) mmol/L Potassium (3.5-5.1) mmol/L Chloride (98-107) mmol/L Carbon Dioxide (22-30) mmol/L Anion Gap mmol/L BUN (7-17) mg/dL Creatinine (0.52-1.04) mg/dL Est GFR (CKD-EPI)AfAm (>60 ml/min/1.73 sqM) Est GFR (CKD-EPI)NonAf (>60 ml/min/1.73 sqM) Glucose (74-99) mg/dL Plasma Lactic Acid Denis (0.7-2.0) mmol/L Calcium (8.4-10.2) mg/dL Total Bilirubin (0.2-1.3) mg/dL AST (14-36) U/L ALT (4-34) U/L Alkaline Phosphatase (38-126) U/L Troponin I (0.000-0.034) ng/mL Total Protein (6.3-8.2) g/dL Albumin (3.5-5.0) g/dL Amylase (30-110) U/L Lipase (23-300) U/L Urine Color Light Yellow Urine Appearance Clear (Clear) Urine pH 8.5 H (5.0-8.0) Ur Specific [place] >1.050 H (1.001-1.035) Urine Protein Negative (Negative) Urine Glucose (UA) Negative (Negative) Urine Ketones Negative (Negative) Urine Blood Negative (Negative) Urine Nitrite Negative (Negative) Urine Bilirubin Negative (Negative) Urine Urobilinogen <2.0 (<2.0) mg/dL Ur Leukocyte Esterase Negative (Negative) 02/20/20 02/20/20 02/20/20 Range/Units 02:07 02:07 02:07 WBC (3.8-10.6) k/uL RBC (3.80-5.40) m/uL Hgb (11.4-16.0) gm/dL Hct (34.0-46.0) % MCV (80.0-100.0) fL MCH (25.0-35.0) pg MCHC (31.0-37.0) g/dL RDW (11.5-15.5) % Plt Count (150-450) k/uL Neutrophils % % Lymphocytes % % Monocytes % % Eosinophils % % Basophils % % Neutrophils # (1.3-7.7) k/uL Lymphocytes # (1.0-4.8) k/uL Monocytes # (0-1.0) k/uL Eosinophils # (0-0.7) k/uL Basophils # (0-0.2) k/uL PT (9.0-12.0) sec INR (<1.2) APTT (22.0-30.0) sec Sodium 136 L (137-145) mmol/L Potassium 3.9 (3.5-5.1) mmol/L Chloride 97 L (98-107) mmol/L Carbon Dioxide 30 (22-30) mmol/L Anion Gap 9 mmol/L BUN 17 (7-17) mg/dL Creatinine 0.51 L (0.52-1.04) mg/dL Est GFR (CKD-EPI)AfAm >90 (>60 ml/min/1.73 sqM) Est GFR (CKD-EPI)NonAf >90 (>60 ml/min/1.73 sqM) Glucose 130 H (74-99) mg/dL Plasma Lactic Acid Denis 2.1 H* (0.7-2.0) mmol/L Calcium 9.9 (8.4-10.2) mg/dL Total Bilirubin 0.4 (0.2-1.3) mg/dL AST 22 (14-36) U/L ALT 13 (4-34) U/L Alkaline Phosphatase 107 (38-126) U/L Troponin I <0.012 (0.000-0.034) ng/mL Total Protein 6.8 (6.3-8.2) g/dL Albumin 4.7 (3.5-5.0) g/dL Amylase 48 (30-110) U/L Lipase 129 (23-300) U/L Urine Color Urine Appearance (Clear) Urine pH (5.0-8.0) Ur Specific [place] (1.001-1.035) Urine Protein (Negative) Urine Glucose (UA) (Negative) Urine Ketones (Negative) Urine Blood (Negative) Urine Nitrite (Negative) Urine Bilirubin (Negative) Urine Urobilinogen (<2.0) mg/dL Ur Leukocyte Esterase (Negative) Disposition <Karthikeyan Hill P - Last Filed: 02/20/20 03:17> Is patient prescribed a controlled substance at d/c from ED?: No <Nikki Green P - Last Filed: 02/20/20 05:15> Clinical Impression: Ileus Disposition: HOME SELF-CARE Condition: Stable Additional Instructions: As we discussed your graft looks good on CTA You do have some ileus, I recommend clear liquid diet for 2-3 days Take zofran as needed for nausea, return to the ER for vomiting Follow up with PCP for re-evaluation later this week Return to the ER for any worsening or development of new or concerning symptoms Referrals: Carlton Orozco MD [Primary Care Provider] - 1-2 days
[2020-02-20 02:41] LABS: ALT 13 U/L (4-34); AST 22 U/L (14-36); African American GFR (CKD) >90 (>60 ml/min/1.73 sqM); Albumin 4.7 g/dL (3.5-5.0); Alkaline Phosphatase 107 U/L (38-126); Amylase 48 U/L (30-110); Anion Gap 9 mmol/L; Blood Urea Nitrogen 17 mg/dL (7-17); Calcium 9.9 mg/dL (8.4-10.2); Carbon Dioxide 30 mmol/L (22-30); Chloride 97 mmol/L (98-107); Glucose 130 mg/dL (74-99); Non-African American GFR(CKD) >90 (>60 ml/min/1.73 sqM); Potassium 3.9 mmol/L (3.5-5.1); Sodium 136 mmol/L (137-145); Total Bilirubin 0.4 mg/dL (0.2-1.3); Total Protein 6.8 g/dL (6.3-8.2)
[2020-02-20 03:07] LABS: INR 0.9 (<1.2); Partial Thromboplastin Time 23.2 sec (22.0-30.0); Prothrombin Time 9.4 sec (9.0-12.0)
[2020-02-20] MEDS ORDERED: INSULIN ASPART (NovoLOG) 100 UNIT/ML VIAL SQ STA (03:16)
[2020-02-20 04:06] LABS: Appearance,Urine Clear (Clear); Bilirubin,Urine Negative (Negative); Blood,Urine Negative (Negative); Color,Urine Light Yellow; Glucose,Urine (UA) Negative (Negative); Ketones,Urine Negative (Negative); Leukocyte Esterase,Urine Negative (Negative); Nitrite,Urine Negative (Negative); PH, Urine 8.5 (5.0-8.0); Protein,Urine Negative (Negative); Urobilinogen,Urine <2.0 mg/dL (<2.0)
--- NOTE | 2020-02-20 04:06 | CT ---
EXAMINATION TYPE: CT angio thor/abd pel aorta DATE OF EXAM: 02/20/2020 COMPARISON: None HISTORY: Chest pain CT DLP: 982.40 mGycm Automated exposure control for dose reduction was used. CONTRAST: Performed with IV Contrast, patient injected with 100 mL of Isovue 370. Images were obtained from the aortic arch to the floor the pelvis without and with IV contrast and 3- D post processed images. Abdominal aorta measures up to 2.4 cm. There is no aneurysm. FINDINGS: There is normal branching pattern of the great vessels on the aortic arch. Thoracic aorta is atheroma tous. There is no thoracic aortic dissection. The ascending aorta measures 3.2 cm. Heart size is norm al. There is no pericardial effusion. There is arterial flow in the celiac artery and superior mesenteric artery which appear widely patent . There is arterial flow in both renal arteries. There is plaque formation at the origins of both ovidio al arteries. There is aorto iliac bypass graft. The contrast shows bilateral patency of the grafts. I see no evidence of hemodynamic stenosis. There is arterial flow in the femoral arteries bilaterally in the left and right groin. There is significant plaque formation with occlusion of the lower abdomi nal aorta. There are spondylotic changes in the thoracic and lumbar spine. There is mild thoracolumbar dextrosco liosis. There is T8 and T7 compression fractures up to 50%. Fractures appear new compared to old ches t CT scan of September 23, 2014. Kidneys have fairly normal size. There is no atrophy. There is no retroperitoneal adenopathy. Visuali zed liver pancreas stomach biliary tree appear intact. There are clips from cholecystectomy. There is some mild distention of loops of small bowel with fluid. IMPRESSION: No evidence of aortic aneurysm or dissection. There is atherosclerotic significant disease in the low er abdominal aorta with occlusion of the distal abdominal aorta and patency of the aortofemoral bypas s graft. No sign of hemodynamic stenosis. There is evidence for some mild small bowel ileus.
[2020-02-20 04:09] LABS: Specific Gravity,Urine >1.050 (1.001-1.035)
[2020-02-20] MEDS ORDERED: ONDANSETRON 4 MG ODT STARTER PACK 2 TAB BTL PO STA (05:09)
[2020-02-20 05:17] VITALS: BP 123/73; PULSE 94; RESP 17; TEMP 98.6
== END 2020-02-20 05:37 | disposition home or self-care (01) ==
LOC: EC 01:54
DX: K56.7 Ileus, unspecified (principal); I25.10 Atherosclerotic heart disease of native coronary artery without angina pectoris; J44.9 Chronic obstructive pulmonary disease, unspecified; M79.7 Fibromyalgia; K21.9 Gastro-esophageal reflux disease without esophagitis; E78.5 Hyperlipidemia, unspecified; I10 Essential (primary) hypertension; M19.90 Unspecified osteoarthritis, unspecified site; F32.9 Major depressive disorder, single episode, unspecified; Z79.51 Long term (current) use of inhaled steroids; Z79.899 Other long term (current) drug therapy; Z91.041 Radiographic dye allergy status; Z88.6 Allergy status to analgesic agent; Z88.0 Allergy status to penicillin; Z90.49 Acquired absence of other specified parts of digestive tract; Z85.828 Personal history of other malignant neoplasm of skin; Z96.652 Presence of left artificial knee joint
CPT/HCPCS: 36415; 86900; 86901; 80053; 82150; 83605; 83690; 84484; 85025; 85610; 85730; 86850; 81003; 71275; 74174; 99284; 96374; 96375 ×4; 96376; J1200; J2930; J2405; S0119; J1170; Q9967; 93005

== ENCOUNTER 2020-02-20 13:15 | Inpatient (IN) | payer BC ==
[2020-02-20] MEDS ORDERED: SODIUM CHLORIDE 0.9% 500 ML 500 ML IV STA (13:33)
[2020-02-20] MEDS ORDERED: ONDANSETRON 4 MG/2 ML VIAL IVP STA (13:33)
--- NOTE | 2020-02-20 13:43 | ED ---
General Adult HPI - General Chief complaint: Nausea/Vomiting/Diarrhea Stated complaint: recheck- vomiting Time Seen by Provider: 02/20/20 13:33 Source: patient Mode of arrival: wheelchair Limitations: no limitations - History of Present Illness Initial comments: Dictation was produced using [employer] dictation software. please excuse any grammatical, word or spelling errors. This patient was cared for during a federal and state declared state of e mergency secondary to Covid 19 Chief Complaint: 64-year-old female peripheral vascular disease, chronic pain, multiple herniated disc presents with abdominal pain. History of Present Illness: 64-year-old female she was seen here in emergency department last night. She has been having symptoms of abdominal pain for the last 2-3 days. Patient reports that her symptoms have been getting worse. She has been having emesis every 20-30 minutes for the last couple days. Patient was seen here last night where she had laboratory evaluation and CT imaging of the aorta. CT appeared to be stable over was incidental finding of ileus. She was discharged with return precautions. Patient reports that her emesis is nonbilious not bloody. She hasn't had a regular bowel movement 2-3 days. Patient has history of chronic pain. She takes morphine and Percocet regularly. The ROS documented in this emergency department record has been reviewed and confirmed by me. Those systems with pertinent positive or negative responses have been documented in the HPI. All other systems are other negative and/or noncontributory. PHYSICAL EXAM: General Impression: Alert and oriented x3, not in acute distress HEENT: Normocephalic atraumatic, extra-ocular movements intact, pupils equal and reactive to light bilaterally, mucous membranes moist. Cardiovascular: Heart regular rate and rhythm Chest: Able to complete full sentences, no retractions, no tachypnea Abdomen: abdomen soft, non-tender, non-distended, no organomegaly Musculoskeletal: Pulses present and equal in all extremities, no peripheral edema Motor: no focal deficits noted Neurological: CN II-XII grossly intact, no focal motor or sensory deficits noted Skin: Intact with no visualized rashes Psych: Normal affect and mood ED course: 64-year-old female who was seen last night for abdominal pain and had ileus on CT per presents to the emergency department for abdominal pain and nausea vomiting. Vital signs upon arrival shows heart rate of 113, oxygen saturation 93%. Laboratory evaluation obtained. Mild leukocytosis of 11.8 which was stable from a visit last night. Her CBC unremarkable. Metabolic panel was within ac ceptable limits.Abdominal x-ray shows ileus. Case was discussed with Dr. trevino was went except patient care. He requests that Gen. surgery be consulted. EKG interpretation: Ventricular rate 101, sinus tachycardia, WV interval 150, QRS 68, QTC 425. No WV prolongation, no QTC prolongation, no ST or T-wave changes noted. s. Overall, this EKG is unremarkable - Related Data Home Medications Medication Instructions Recorded Confirmed Carvedilol 25 mg PO BID 05/30/15 02/20/20 Cetirizine HCl [Zyrtec] 10 mg PO DAILY 05/30/15 02/20/20 Losartan Potassium 100 mg PO DAILY 05/30/15 02/20/20 Morphine Sulfate [Morphine Sulfate 30 mg PO DAILY 05/30/15 02/20/20 ER] Omeprazole [PriLOSEC] 20 mg PO DAILY 05/30/15 02/20/20 hydroCHLOROthiazide 25 mg PO DAILY 05/30/15 02/20/20 Ipratropium [place] [Atrovent Hfa] 2 puff INHALATION RT-QID 10/27/15 02/20/20 Ipratropium-Albuterol Nebulize 3 ml INHALATION RT-QID PRN 08/03/17 02/20/20 [Duoneb 0.5 mg-3 mg/3 ml Soln] oxyCODONE-APAP 5-325MG [Percocet 1 tab PO PC-LUNCH PRN 08/03/17 02/20/20 5-325 mg] Pravastatin Sodium [Pravachol] 40 mg PO HS 02/20/20 02/20/20 Previous Rx's Medication Instructions Recorded Clopidogrel [Plavix] 75 mg PO DAILY #30 tab 06/05/15 Allergies Allergy/AdvReac Type Severity Reaction Status Date / Time aspirin Allergy Anaphylaxis Verified 02/20/20 14:00 NSAIDS (Non-Steroidal Allergy Anaphylaxis Verified 02/20/20 14:00 Anti-Inflamma Penicillins Allergy Anaphylaxis Verified 02/20/20 14:00 Iodinated Contrast Media AdvReac Mild cold Verified 02/20/20 14:00 [Iodinated Contrast Media - symptoms, IV Dye] runny nose, itchy eyes cough Review of Systems ROS Statement: Those systems with pertinent positive or pertinent negative responses have been documented in the HPI. ROS Other: All systems not noted in ROS Statement are negative. Past Medical History Past Medical History: Asthma, Coronary Artery Disease (CAD), Cancer, COPD, Deep Vein Thrombosis (DVT), Fibromyalgia, GERD/Reflux, Hyperlipidemia, Hypertension, Osteoarthritis (OA), Respiratory Disorder, Vascular Disorder Additional Past Medical History / Comment(s): pad,chronic bronchitis, nodules on thyroid, leukoplakia-lip and vocal cords. past" gangrene on right foot" History of Any Multi-Drug Resistant Organisms: None Reported Past Surgical History: Appendectomy, Section, Cholecystectomy, Hysterectomy, Joint Replacement, Orthopedic Surgery Additional Past Surgical History / Comment(s): leukoplakia removed from lip and vocal cords.cervical fusion,2013 rt aorto iliac bypass,aortogram w/ runoff. 2014 had stenting of aorto to rt ext iliac bypass, rt foot 2nd toe reconstructive sx, rt carotid endarterectomy, egd/colonoscopy ,cervical fusion,lt knee replacment.lt elbow sx,umbilical hernia repair,bilcarpal tunnel release,lt and rt breast bx-neg Past Anesthesia/Blood Transfusion Reactions: Previous Problems w/ Anesthesia, Postoperative Nausea & Vomiting (PONV) Additional Past Anesthesia/Blood Transfusion Reaction / Comment(s): difficulty waking from anesthesia Past Psychological History: Depression Smoking Status: Current every day smoker Past Alcohol Use History: None Reported Past Drug Use History: None Reported - Past Family History Mother Family Medical History: Cancer, Coronary Artery Disease (CAD), Renal Disease Additional Family Medical History / Comment(s): CABG, LUNG CANCER, Brother(s) Family Medical History: Coronary Artery Disease (CAD), CVA/TIA Additional Family Medical History / Comment(s): 1 BROTHER CABG, 1 BROTHER STROKE Father Family Medical History: Coronary Artery Disease (CAD), Renal Disease Additional Family Medical History / Comment(s): X4 OPEN HEART SX. HUGE CARDIAC HX ON DADS SIDE OF FAMILY General Exam Limitations: no limitations Course Vital Signs 02/20/20 02/20/20 13:22 14:00 Temperature 99.1 F Pulse Rate 113 H 101 H Respiratory 18 18 Rate Blood Pressure 178/97 153/81 O2 Sat by Pulse 93 L 93 L Oximetry Medical Decision Making - Lab Data Result diagrams: 02/20/20 13:43 02/20/20 13:43 Lab Results 02/20/20 02/20/20 Range/Units 13:43 13:43 WBC 11.8 H (3.8-10.6) k/uL RBC 5.22 (3.80-5.40) m/uL Hgb 15.6 (11.4-16.0) gm/dL Hct 47.4 H (34.0-46.0) % MCV 90.8 (80.0-100.0) fL MCH 29.9 (25.0-35.0) pg MCHC 32.9 (31.0-37.0) g/dL RDW 13.0 (11.5-15.5) % Plt Count 317 (150-450) k/uL Neutrophils % 84 % Lymphocytes % 11 % Monocytes % 4 % Eosinophils % 0 % Basophils % 0 % Neutrophils # 10.0 H (1.3-7.7) k/uL Lymphocytes # 1.3 (1.0-4.8) k/uL Monocytes # 0.4 (0-1.0) k/uL Eosinophils # 0.0 (0-0.7) k/uL Basophils # 0.0 (0-0.2) k/uL Sodium 136 L (137-145) mmol/L Potassium 4.1 (3.5-5.1) mmol/L Chloride 101 (98-107) mmol/L Carbon Dioxide 26 (22-30) mmol/L Anion Gap 9 mmol/L BUN 19 H (7-17) mg/dL Creatinine 0.54 (0.52-1.04) mg/dL Est GFR (CKD-EPI)AfAm >90 (>60 ml/min/1.73 sqM) Est GFR (CKD-EPI)NonAf >90 (>60 ml/min/1.73 sqM) Glucose 135 H (74-99) mg/dL Calcium 9.9 (8.4-10.2) mg/dL Total Bilirubin 0.6 (0.2-1.3) mg/dL AST 25 (14-36) U/L ALT 13 (4-34) U/L Alkaline Phosphatase 109 (38-126) U/L Total Protein 7.1 (6.3-8.2) g/dL Albumin 4.9 (3.5-5.0) g/dL Lipase 68 (23-300) U/L Disposition Clinical Impression: Ileus Disposition: ADMITTED IP TO THIS HOSP Condition: Fair Referrals: Carlton Orozco MD [Primary Care Provider] - 1-2 days Decision Time: 14:51
[2020-02-20 13:59] LABS: Basophils % (A) 0 %; Eosinophils % (A) 0 %; HCT 47.4 % (34.0-46.0); HGB 15.6 gm/dL (11.4-16.0); Lymphocytes # (A) 1.3 k/uL (1.0-4.8); Lymphocytes % (A) 11 %; MCH 29.9 pg (25.0-35.0); MCHC 32.9 g/dL (31.0-37.0); MCV 90.8 fL (80.0-100.0); Mean Platelet Volume 7.2; Monocytes # (A) 0.4 k/uL (0-1.0); Monocytes % (A) 4 %; Neutrophils % (A) 84 %; Platelet Count 317 k/uL (150-450); RBC 5.22 m/uL (3.80-5.40); WBC 11.8 k/uL (3.8-10.6)
[2020-02-20 14:08] LABS: ALT 13 U/L (4-34); AST 25 U/L (14-36); African American GFR (CKD) >90 (>60 ml/min/1.73 sqM); Albumin 4.9 g/dL (3.5-5.0); Alkaline Phosphatase 109 U/L (38-126); Anion Gap 9 mmol/L; Blood Urea Nitrogen 19 mg/dL (7-17); Calcium 9.9 mg/dL (8.4-10.2); Carbon Dioxide 26 mmol/L (22-30); Chloride 101 mmol/L (98-107); Glucose 135 mg/dL (74-99); Non-African American GFR(CKD) >90 (>60 ml/min/1.73 sqM); Potassium 4.1 mmol/L (3.5-5.1); Sodium 136 mmol/L (137-145); Total Bilirubin 0.6 mg/dL (0.2-1.3); Total Protein 7.1 g/dL (6.3-8.2)
[2020-02-20] MEDS ORDERED: ONDANSETRON 4 MG/2 ML VIAL IVP PRN (14:20)
[2020-02-20] MEDS ORDERED: NALOXONE 0.4 MG/ML 1 ML VIAL IV PRN (14:20)
--- NOTE | 2020-02-20 14:36 | XR ---
Abdomen HISTORY: Vomiting and ileus Single frontal view of the abdomen submitted and correlated prior exam 08/14/2013 Scoliotic curvature is again noted within the visualized spine, there are degenerative disc changes. Long segment stent extends along the right common iliac artery occlusion, multiple surgical clips pre sent in the pelvis. There is contrast material present within the urinary bladder. Air-fluid levels a re present without bowel distention. Lung bases are clear. IMPRESSION: Correlate for ileus, enteritis, follow-up as indicated.
[2020-02-20] MEDS: MORPHINE SULFATE 4 MG/ML SYRINGE IV PRN ×3 (15:09→22:57)
[2020-02-20] MEDS: SODIUM CHLORIDE 0.9% 1,000 ML IV SCH (15:10)
[2020-02-20] MEDS: HEPARIN SODIUM,PORCINE 5,000 UNIT/ML 1 ML VIAL SQ SCH ×2 (17:10→22:57)
[2020-02-20] MEDS: carvediloL 12.5 MG TAB PO SCH (20:47)
[2020-02-20] MEDS ORDERED: PRAVASTATIN SODIUM 40 MG TAB PO SCH (21:00)
[2020-02-20] MEDS: IPRATROPIUM-ALBUTEROL 3 ML NEB INHALATION PRN (21:04)
--- NOTE | 2020-02-20 23:38 | P.HPIM ---
History of Present Illness H&P Date: 02/20/20 Chief Complaint: No abdominal pain. Patient is a 64-year-old male with a known history of peripheral vascular disease with stenting aortic type II right Iliac bypass, right carotid endarterectomy, osteoarthritis, chronic bronchitis, history of thyroid nodule, fibromyalgia, history of DVT, GERD, hypertension, hyperlipidemia, osteoarthritis and currently everyday smoker and depression presents to ER with complaints of abdominal pain. Patient was in the ER last night with abdominal pain. Patient has been having abdominal pain for the past 4 to 5 days. Since yesterday she has been having multiple episodes of vomiting. Vomiting is mainly nonbloody bilious. Abdominal pain is mainly diffuse without any distention. Last bowel met was about 3 days ago otherwise patient is passing flatus. Patient is on morphine and Percocet for chronic pain and fibromyalgia. Abdominal x-ray showed correlate for ileus, enteritis. Follow-up indicated. EKG showed sinus tachycardia Laboratory data showed WBC 11.8, hemoglobin 15.6 and platelets 317 Sodium 136, potassium 4.1, chloride 101 and BUN 19 and creatinine 0.54 Review of Systems Constitutional: Patient denies any fever or chills . No generalized weakness or weight loss. Abdomen: Patient does have abdominal pain associate with nausea and vomiting. No diarrhea.. Cardiovascular: Patient denies any chest pain or short of breath no palpitations. Respiratory: patient denied any cough is from production. No shortness of breath Neurologic: Patient denied any numbness or tingling headache. Musculoskeletal: Patient denies any complaints of joint swelling or deformity. Skin: Negative Psychiatric: Negative Endocrine: No heat or cold intolerance. No recent weight gain. Genitourinary: No dysuria or hematuria. All other 14 point ROS negative except the above Past Medical History Past Medical History: Asthma, Coronary Artery Disease (CAD), Cancer, COPD, Deep Vein Thrombosis (DVT), Fibromyalgia, GERD/Reflux, Hyperlipidemia, Hypertension, Osteoarthritis (OA), Respiratory Disorder, Vascular Disorder Additional Past Medical History / Comment(s): pad,chronic bronchitis, nodules on thyroid, leukoplakia-lip and vocal cords. past" gangrene on right foot" History of Any Multi-Drug Resistant Organisms: None Reported Past Surgical History: Appendectomy, Section, Cholecystectomy, Hysterectomy, Joint Replacement, Orthopedic Surgery Additional Past Surgical History / Comment(s): leukoplakia removed from lip and vocal cords.cervical fusion,2013 rt aorto iliac bypass,aortogram w/ runoff. 2014 had stenting of aorto to rt ext iliac bypass, rt foot 2nd toe reconstructive sx, rt carotid endarterectomy, egd/colonoscopy ,cervical fusion,lt knee replacment.lt elbow sx,umbilical hernia repair,bilcarpal tunnel release,lt and rt breast bx-neg Past Anesthesia/Blood Transfusion Reactions: Previous Problems w/ Anesthesia, Postoperative Nausea & Vomiting (PONV) Additional Past Anesthesia/Blood Transfusion Reaction / Comment(s): difficulty waking from anesthesia Past Psychological History: Depression Smoking Status: Current every day smoker Past Alcohol Use History: None Reported Past Drug Use History: None Reported - Past Family History Mother Family Medical History: Cancer, Coronary Artery Disease (CAD), Renal Disease Additional Family Medical History / Comment(s): CABG, LUNG CANCER, Brother(s) Family Medical History: Coronary Artery Disease (CAD), CVA/TIA Additional Family Medical History / Comment(s): 1 BROTHER CABG, 1 BROTHER STROKE Father Family Medical History: Coronary Artery Disease (CAD), Renal Disease Additional Family Medical History / Comment(s): X4 OPEN HEART SX. HUGE CARDIAC HX ON DADS SIDE OF FAMILY Medications and Allergies Home Medications Medication Instructions Recorded Confirmed Type Carvedilol 25 mg PO BID 05/30/15 02/20/20 History Cetirizine HCl [Zyrtec] 10 mg PO DAILY 05/30/15 02/20/20 History Losartan Potassium 100 mg PO DAILY 05/30/15 02/20/20 History Morphine Sulfate [Morphine Sulfate 30 mg PO DAILY 05/30/15 02/20/20 History ER] Omeprazole [PriLOSEC] 20 mg PO DAILY 05/30/15 02/20/20 History hydroCHLOROthiazide 25 mg PO DAILY 05/30/15 02/20/20 History Clopidogrel [Plavix] 75 mg PO DAILY #30 tab 06/05/15 02/20/20 Rx Ipratropium [place] [Atrovent Hfa] 2 puff INHALATION RT-QID 10/27/15 02/20/20 History Ipratropium-Albuterol Nebulize 3 ml INHALATION RT-QID PRN 08/03/17 02/20/20 History [Duoneb 0.5 mg-3 mg/3 ml Soln] oxyCODONE-APAP 5-325MG [Percocet 1 tab PO PC-LUNCH PRN 08/03/17 02/20/20 History 5-325 mg] Pravastatin Sodium [Pravachol] 40 mg PO HS 02/20/20 02/20/20 History Allergies Allergy/AdvReac Type Severity Reaction Status Date / Time aspirin Allergy Anaphylaxis Verified 02/20/20 14:00 NSAIDS (Non-Steroidal Allergy Anaphylaxis Verified 02/20/20 14:00 Anti-Inflamma Penicillins Allergy Anaphylaxis Verified 02/20/20 14:00 Iodinated Contrast Media AdvReac Mild cold Verified 02/20/20 14:00 [Iodinated Contrast Media - symptoms, IV Dye] runny nose, itchy eyes cough Physical Exam Vitals: Vital Signs Temp Pulse Resp BP Pulse Ox 02/20/20 15:05 98.4 F 110 H 18 162/98 92 L 02/20/20 14:00 101 H 18 153/81 93 L 02/20/20 13:22 99.1 F 113 H 18 178/97 93 L Intake and Output 02/20/20 02/20/20 02/20/20 06:59 14:59 22:59 Other: Weight 58.06 kg PHYSICAL EXAMINATION: Patient is lying in the bed comfortably, no acute distress, awake alert and oriented.. HEENT: Normocephalic. Neck is supple. Pupils reactive. Nostrils clear. Oral cavity is moist. Ears reveal no drainage. Neck reveals no JVD, carotid bruits, or thyromegaly. CHEST EXAMINATION: Trachea is central. Symmetrical expansion. Lung parker clear to auscultation and percussion. CARDIAC: Normal S1, S2 with no gallops. No murmurs ABDOMEN: Soft. Diffuse tenderness. No guarding or rigidity. Bowel sounds are present but hypoactive.. No organomegaly. No abdominal bruits. Extremities: reveal no edema. No clubbing or cyanosis Neurologically awake, alert, oriented x3 with well-coordinated movements. No focal deficits noted Skin: No rash or skin lesions. Psychiatric: Coperative. Nonsuicidal Musculoskeletal: No joint swelling or deformity. Normal range of motion. Results CBC & Chem 7: 02/20/20 13:43 02/20/20 13:43 Labs: Abnormal Lab Results - Last 24 Hours (Table) 02/20/20 02/20/20 Range/Units 13:43 13:43 WBC 11.8 H (3.8-10.6) k/uL Hct 47.4 H (34.0-46.0) % Neutrophils # 10.0 H (1.3-7.7) k/uL Sodium 136 L (137-145) mmol/L BUN 19 H (7-17) mg/dL Glucose 135 H (74-99) mg/dL Thrombosis Risk Factor Assmnt - DVT/VTE Prophylaxis DVT/VTE Prophylaxis: Pharmacologic Prophylaxis ordered Assessment and Plan Assessment: Abdominal pain secondary to ileus. Chronic pain patient is currently on Percocet 10 morphine p.o. 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 DVT prophylaxis with heparin subcu Plan: Patient will be continued on IV fluids and nothing by mouth. Continued pain man agement with morphine. General surgery was consulted. Continued home medications and follow-up closely. Time with Patient: Greater than 30
[2020-02-21 02:40] VITALS: TEMP 98.7
[2020-02-21] MEDS: SODIUM CHLORIDE 0.9% 1,000 ML IV SCH ×2 (02:44→14:59)
[2020-02-21] MEDS: MORPHINE SULFATE 4 MG/ML SYRINGE IV PRN (05:39)
[2020-02-21] MEDS ORDERED: PANTOPRAZOLE 40 MG TABLET PO SCH (07:30)
[2020-02-21 07:39] VITALS: BP 127/59; RESP 16
[2020-02-21 07:41] LABS: Basophils % (A) 0 %; Eosinophils % (A) 0 %; HCT 39.9 % (34.0-46.0); Lymphocytes # (A) 1.9 k/uL (1.0-4.8); Lymphocytes % (A) 17 %; MCHC 32.5 g/dL (31.0-37.0); MCV 92.3 fL (80.0-100.0); Mean Platelet Volume 7.4; Monocytes # (A) 0.6 k/uL (0-1.0); Monocytes % (A) 5 %; Neutrophils # (A) 8.7 k/uL (1.3-7.7); Neutrophils % (A) 76 %; Platelet Count 268 k/uL (150-450); RBC 4.33 m/uL (3.80-5.40); RDW 13.1 % (11.5-15.5); WBC 11.4 k/uL (3.8-10.6)
[2020-02-21] MEDS: IPRATROPIUM-ALBUTEROL 3 ML NEB INHALATION PRN (07:46)
[2020-02-21 07:56] LABS: African American GFR (CKD) >90 (>60 ml/min/1.73 sqM); Anion Gap 5 mmol/L; Blood Urea Nitrogen 23 mg/dL (7-17); Calcium 8.5 mg/dL (8.4-10.2); Carbon Dioxide 24 mmol/L (22-30); Chloride 108 mmol/L (98-107); Glucose 110 mg/dL (74-99); Non-African American GFR(CKD) >90 (>60 ml/min/1.73 sqM); Potassium 3.6 mmol/L (3.5-5.1); Sodium 137 mmol/L (137-145)
[2020-02-21 07:57] VITALS: PULSE 96
[2020-02-21] MEDS: carvediloL 12.5 MG TAB PO SCH (08:33)
[2020-02-21] MEDS: HEPARIN SODIUM,PORCINE 5,000 UNIT/ML 1 ML VIAL SQ SCH (08:34)
[2020-02-21] MEDS ORDERED: LOSARTAN 50 MG TAB PO SCH (09:00)
[2020-02-21] MEDS ORDERED: CLOPIDOGREL 75 MG TAB PO SCH (09:00)
--- NOTE | 2020-02-21 12:01 | P.GSCN ---
History of Present Illness Consult date: 02/21/20 History of present illness: CHIEF COMPLAINT: Abdominal pain HISTORY OF PRESENT ILLNESS: This is a 64-year-old female with a known history of severe peripheral vascular disease with stenting and aortic iliac bypass, carotid endarterectomy, TSH nodule, GERD, hypertension, hyperlipidemia, fibromyalgia, herniated disks in her cervical spine. She is on chronic pain medications due to her chronic neck pain and fibromyalgia. She takes morphine and Percocet. Patient reports a three-day history of abdominal pain. The pain became very severe and sharp. She did not have a bowel movement for about 3 days. 3 hours prior to coming into the emergency room she was vomiting. Abdominal x-ray had shown possible ileus. Therefore, surgical consult was placed. Patient is afebrile. Patient did have a large soft bowel movement today. Abdominal pain has resolved. PAST MEDICAL HISTORY: See list. PAST SURGICAL HISTORY: See list. MEDICATIONS: See list. ALLERGIES: See list. SOCIAL HISTORY: No illicit drug use. REVIEW OF SYSTEMS: CONSTITUTIONAL: Denies fever or chills. HEENT: Denies blurred vision, vision changes, or eye pain. Denies hemoptysis CARDIOVASCULAR: Denies chest pain or pressure. RESPIRATORY: No shortness of breath. GASTROINTESTINAL: See HPI for pertinent findings HEMATOLOGIC: Denies bleeding disorders. GENITOURINARY: Denies any blood in urine or increased urinary frequency. SKIN: Denies pruitis. Denies rash. PHYSICAL EXAM: VITAL SIGNS: Reviewed GENERAL: Well-developed in no acute distress. HEENT: No sclera icterus. Extraocular movements grossly intact. Moist buccal mucosa. Head is atraumatic, normocephalic. No nasal drainage. ABDOMEN: Soft. Nontender nondistended NEUROLOGIC: Alert and oriented. Cranial nerves II through XII grossly intact. LABORATORY DATA: WBC 11.8 LFTs normal lipase normal IMAGING: Abdominal x-ray showing ileus, enteritis ASSESSMENT: 1. Abdominal pain likely secondary to ileus versus a gastroenteritis. Now resolved PLAN: -Start patient on a clear liquid diet -Encourage patient to ambulate -Continue with IV fluids Thank you for this consultation. Physician Chore Worker note has been reviewed by physician. Signing provider agrees with the documented findings, assessment, and plan of care. Past Medical History Past Medical History: Asthma, Coronary Artery Disease (CAD), Cancer, COPD, Deep Vein Thrombosis (DVT), Fibromyalgia, GERD/Reflux, Hyperlipidemia, Hypertension, Osteoarthritis (OA), Respiratory Disorder, Vascular Disorder Additional Past Medical History / Comment(s): pad,chronic bronchitis, nodules on thyroid, leukoplakia-lip and vocal cords. past" gangrene on right foot" History of Any Multi-Drug Resistant Organisms: None Reported Past Surgical History: Appendectomy, Section, Cholecystectomy, Hysterectomy, Joint Replacement, Orthopedic Surgery Additional Past Surgical History / Comment(s): leukoplakia removed from lip and vocal cords.cervical fusion,2013 rt aorto iliac bypass,aortogram w/ runoff. 2014 had stenting of aorto to rt ext iliac bypass, rt foot 2nd toe reconstructive sx, rt carotid endarterectomy, egd/colonoscopy ,cervical fusion,lt knee replacment.lt elbow sx,umbilical hernia repair,bilcarpal tunnel release,lt and rt breast bx-neg Past Anesthesia/Blood Transfusion Reactions: Previous Problems w/ Anesthesia, Postoperative Nausea & Vomiting (PONV) Additional Past Anesthesia/Blood Transfusion Reaction / Comm: difficulty waking from anesthesia Past Psychological History: Depression Smoking Status: Current every day smoker Past Alcohol Use History: None Reported Past Drug Use History: None Reported - Past Family History Mother Family Medical History: Cancer, Coronary Artery Disease (CAD), Renal Disease Additional Family Medical History / Comment(s): CABG, LUNG CANCER, Brother(s) Family Medical History: Coronary Artery Disease (CAD), CVA/TIA Additional Family Medical History / Comment(s): 1 BROTHER CABG, 1 BROTHER STROKE Father Family Medical History: Coronary Artery Disease (CAD), Renal Disease Additional Family Medical History / Comment(s): X4 OPEN HEART SX. HUGE CARDIAC HX ON DADS SIDE OF FAMILY Medications and Allergies Home Medications Medication Instructions Recorded Confirmed Type Carvedilol 25 mg PO BID 05/30/15 02/20/20 History Cetirizine HCl [Zyrtec] 10 mg PO DAILY 05/30/15 02/20/20 History Losartan Potassium 100 mg PO DAILY 05/30/15 02/20/20 History Morphine Sulfate [Morphine Sulfate 30 mg PO DAILY 05/30/15 02/20/20 History ER] Omeprazole [PriLOSEC] 20 mg PO DAILY 05/30/15 02/20/20 History hydroCHLOROthiazide 25 mg PO DAILY 05/30/15 02/20/20 History Clopidogrel [Plavix] 75 mg PO DAILY #30 tab 06/05/15 02/20/20 Rx Ipratropium [place] [Atrovent Hfa] 2 puff INHALATION RT-QID 10/27/15 02/20/20 History Ipratropium-Albuterol Nebulize 3 ml INHALATION RT-QID PRN 08/03/17 02/20/20 History [Duoneb 0.5 mg-3 mg/3 ml Soln] oxyCODONE-APAP 5-325MG [Percocet 1 tab PO PC-LUNCH PRN 08/03/17 02/20/20 History 5-325 mg] Pravastatin Sodium [Pravachol] 40 mg PO HS 02/20/20 02/20/20 History Allergies Allergy/AdvReac Type Severity Reaction Status Date / Time aspirin Allergy Anaphylaxis Verified 02/20/20 14:00 NSAIDS (Non-Steroidal Allergy Anaphylaxis Verified 02/20/20 14:00 Anti-Inflamma Penicillins Allergy Anaphylaxis Verified 02/20/20 14:00 Iodinated Contrast Media AdvReac Mild cold Verified 02/20/20 14:00 [Iodinated Contrast Media - symptoms, IV Dye] runny nose, itchy eyes cough Surgical - Exam Vital Signs Temp Pulse Resp BP Pulse Ox 99.1 F 113 H 18 178/97 93 L 02/20/20 13:22 02/20/20 13:22 02/20/20 13:22 02/20/20 13:22 02/20/20 13:22 Results - Labs 02/21/20 06:42 02/21/20 06:42 Abnormal Lab Results - Last 24 Hours (Table) 02/20/20 02/20/20 02/21/20 Range/Units 13:43 13:43 06:42 WBC 11.8 H 11.4 H (3.8-10.6) k/uL Hct 47.4 H (34.0-46.0) % Neutrophils # 10.0 H 8.7 H (1.3-7.7) k/uL Sodium 136 L (137-145) mmol/L Chloride (98-107) mmol/L BUN 19 H (7-17) mg/dL Glucose 135 H (74-99) mg/dL 02/21/20 Range/Units 06:42 WBC (3.8-10.6) k/uL Hct (34.0-46.0) % Neutrophils # (1.3-7.7) k/uL Sodium (137-145) mmol/L Chloride 108 H (98-107) mmol/L BUN 23 H (7-17) mg/dL Glucose 110 H (74-99) mg/dL Diabetes panel 02/20/20 02/21/20 Range/Units 13:43 06:42 Sodium 136 L 137 (137-145) mmol/L Potassium 4.1 3.6 (3.5-5.1) mmol/L Chloride 101 108 H (98-107) mmol/L Carbon Dioxide 26 24 (22-30) mmol/L BUN 19 H 23 H (7-17) mg/dL Creatinine 0.54 0.60 (0.52-1.04) mg/dL Glucose 135 H 110 H (74-99) mg/dL Calcium 9.9 8.5 (8.4-10.2) mg/dL AST 25 (14-36) U/L ALT 13 (4-34) U/L Alkaline Phosphatase 109 (38-126) U/L Total Protein 7.1 (6.3-8.2) g/dL Albumin 4.9 (3.5-5.0) g/dL Calcium panel 02/20/20 02/21/20 Range/Units 13:43 06:42 Calcium 9.9 8.5 (8.4-10.2) mg/dL Albumin 4.9 (3.5-5.0) g/dL Pituitary panel 02/20/20 02/21/20 Range/Units 13:43 06:42 Sodium 136 L 137 (137-145) mmol/L Potassium 4.1 3.6 (3.5-5.1) mmol/L Chloride 101 108 H (98-107) mmol/L Carbon Dioxide 26 24 (22-30) mmol/L BUN 19 H 23 H (7-17) mg/dL Creatinine 0.54 0.60 (0.52-1.04) mg/dL Glucose 135 H 110 H (74-99) mg/dL Calcium 9.9 8.5 (8.4-10.2) mg/dL Adrenal panel 02/20/20 02/21/20 Range/Units 13:43 06:42 Sodium 136 L 137 (137-145) mmol/L Potassium 4.1 3.6 (3.5-5.1) mmol/L Chloride 101 108 H (98-107) mmol/L Carbon Dioxide 26 24 (22-30) mmol/L BUN 19 H 23 H (7-17) mg/dL Creatinine 0.54 0.60 (0.52-1.04) mg/dL Glucose 135 H 110 H (74-99) mg/dL Calcium 9.9 8.5 (8.4-10.2) mg/dL Total Bilirubin 0.6 (0.2-1.3) mg/dL AST 25 (14-36) U/L ALT 13 (4-34) U/L Alkaline Phosphatase 109 (38-126) U/L Total Protein 7.1 (6.3-8.2) g/dL Albumin 4.9 (3.5-5.0) g/dL
--- NOTE | 2020-02-21 15:21 | P.DS ---
Providers Date of admission: 02/20/20 14:22 Expected date of discharge: 02/21/20 Attending physician: Kalin Carvajal MD Consults: 02/20/20 14:21 Consult Physician Routine Consulting Provider: Abdirahman Ramirez Consult Reason/Comments: ileus Do you want consulting provider notified?: Yes Primary care physician: Carlton Orozco [facility] Course: Final diagnosis Abdominal pain secondary to ileus Chronic pain patient is currently on Percocet 10 morphine p.o. 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 DVT prophylaxis Discharge disposition Patient is being discharged in a stable condition with guarded prognosis to home. Patient will follow-up with Dr. Orozco in the outpatient setting upon discharge. Patient also instructed to continue with clear liquids to full liquid diet for the next few days and slowly advance as tolerated. Total time taken is greater than 35 minutes. History of present illness This is a 64-year-old female who was recently admitted with abdominal pain that had become more severe over the last 5 days along with multiple episodes of vomiting and was being closely monitored. Patient was seen and evaluated by surgery as x-ray showed possible ileus although patient had a bowel movement today and is feeling much better. Patient was initiated on clear liquids and tolerated with no reports of abdominal pain noted. Patient has not had any vomiting noted as well. Patient does take chronic pain medications for fibromyalgia and will be following up with primary care provider in the outpatient setting. Instructed the patient to continue with clear liquids to full liquids and advance slowly over the next few days as tolerated. Patient had a bowel movement today and is feeling much better and would really like to go home today. Currently no reports of chest pain, shortness of breath, or palpitations. Patient is afebrile. No reports of nausea or vomiting and patient is tolerating diet. Patient will be discharged home today. On exam vital signs are stable. Temp is 98.7F, pulse is 89, respirations are 16, blood pressure is 127/59, oxygen saturation is 90-92% on room air. Cardio S1, S2 are muffled. Respiratory system shows diminished breath sounds at the bases with no wheezing or rhonchi noted. Abdomen is soft and nontender. Nervous system shows no focal deficits. Please refer to medication reconciliation sheet for a list of medications. Patient Condition at Discharge: Fair Plan - Discharge Summary New Discharge Prescriptions: Continue Cetirizine HCl [Zyrtec] 10 mg PO DAILY Omeprazole [PriLOSEC] 20 mg PO DAILY Morphine Sulfate [Morphine Sulfate ER] 30 mg PO DAILY hydroCHLOROthiazide 25 mg PO DAILY Carvedilol 25 mg PO BID Losartan Potassium 100 mg PO DAILY Clopidogrel [Plavix] 75 mg PO DAILY #30 tab Ipratropium [place] [Atrovent Hfa] 2 puff INHALATION RT-QID Ipratropium-Albuterol Nebulize [Duoneb 0.5 mg-3 mg/3 ml Soln] 3 ml INHALATION RT-QID PRN PRN Reason: sob oxyCODONE-APAP 5-325MG [Percocet 5-325 mg] 1 tab PO PC-LUNCH PRN PRN Reason: Pain Pravastatin Sodium [Pravachol] 40 mg PO HS Discharge Medication List Carvedilol 25 mg PO BID 05/30/15 [History] Cetirizine HCl [Zyrtec] 10 mg PO DAILY 05/30/15 [History] Losartan Potassium 100 mg PO DAILY 05/30/15 [History] Morphine Sulfate [Morphine Sulfate ER] 30 mg PO DAILY 05/30/15 [History] Omeprazole [PriLOSEC] 20 mg PO DAILY 05/30/15 [History] hydroCHLOROthiazide 25 mg PO DAILY 05/30/15 [History] Clopidogrel [Plavix] 75 mg PO DAILY #30 tab 06/05/15 [Rx] Ipratropium [place] [Atrovent Hfa] 2 puff INHALATION RT-QID 10/27/15 [History] Ipratropium-Albuterol Nebulize [Duoneb 0.5 mg-3 mg/3 ml Soln] 3 ml INHALATION RT-QID PRN 08/03/17 [History] oxyCODONE-APAP 5-325MG [Percocet 5-325 mg] 1 tab PO PC-LUNCH PRN 08/03/17 [History] Pravastatin Sodium [Pravachol] 40 mg PO HS 02/20/20 [History] Follow up Appointment(s)/Referral(s): Carlton Orozco MD [Primary Care Provider] - 02/26/20 2:10 pm Patient Instructions/Handouts: How to Stop Smoking (DC), Ileus (DC) Activity/Diet/Wound Care/Special Instructions: Activity Limited until follow-up Follow-up with primary care provider upon discharge Continue current diet of clear to full liquids for the next few days and slowly advance as tolerated Discharge Disposition: HOME SELF-CARE
== END 2020-02-21 15:05 | disposition home or self-care (01) | DRG 390 ==
LOC: EC 13:15 → 4SSUR 14:22
PROVIDERS: ADMIT Internal Medicine; ATTEND Internal Medicine
DX: K56.7 Ileus, unspecified (principal); D72.829 Elevated white blood cell count, unspecified; E78.5 Hyperlipidemia, unspecified; F17.200 Nicotine dependence, unspecified, uncomplicated; F32.9 Major depressive disorder, single episode, unspecified; G89.29 Other chronic pain; I10 Essential (primary) hypertension; I25.10 Atherosclerotic heart disease of native coronary artery without angina pectoris; I73.9 Peripheral vascular disease, unspecified; J44.9 Chronic obstructive pulmonary disease, unspecified; K21.9 Gastro-esophageal reflux disease without esophagitis; M19.90 Unspecified osteoarthritis, unspecified site; M79.7 Fibromyalgia; E04.1 Nontoxic single thyroid nodule; K52.9 Noninfective gastroenteritis and colitis, unspecified; Z79.02 Long term (current) use of antithrombotics/antiplatelets; Z79.899 Other long term (current) drug therapy; Z79.891 Long term (current) use of opiate analgesic; Z88.0 Allergy status to penicillin; Z88.6 Allergy status to analgesic agent; Z91.041 Radiographic dye allergy status; Z90.710 Acquired absence of both cervix and uterus; Z86.718 Personal history of other venous thrombosis and embolism; Z90.49 Acquired absence of other specified parts of digestive tract; Z98.890 Other specified postprocedural states; Z98.1 Arthrodesis status; Z95.820 Peripheral vascular angioplasty status with implants and grafts; Z96.60 Presence of unspecified orthopedic joint implant; Z80.1 Family history of malignant neoplasm of trachea, bronchus and lung; Z82.3 Family history of stroke; Z82.49 Family history of ischemic heart disease and other diseases of the circulatory system; Z84.1 Family history of disorders of kidney and ureter
CPT/HCPCS: 36415; 74018; 80048; 80053; 83690; 85025; 93005; 94640; 96361; 96374; 96375; 99285

== ENCOUNTER 2020-08-19 06:08 | Day surgery (SDC) | payer BC ==
[2020-08-15 10:21] VITALS: BMI 24.0
[~2020-08-19 06:08] MED LIST: LACTATED RINGERS 1,000 ML IV SCH; LIDOCAINE 1% (10MG/ML) FOR IV START INTRADERMA PRN
[2020-08-19 07:39] VITALS: RESP 16; TEMP 97.6
[2020-08-19] MEDS ORDERED: ONDANSETRON 4 MG/2 ML VIAL ONE (07:52)
[2020-08-19] MEDS ORDERED: PROPOFOL 10 MG/ML 20 ML VIAL IV ONE (08:25)
--- NOTE | 2020-08-19 09:25 | P.PCN ---
Date of Procedure: 08/19/20 Description of Procedure: Brief history: Patient is a pleasant 65-year-old female presenting for outpatient EGD and colonoscopy for evaluation of GERD and altered bowel function. Patient has uncontrolled reflux. She reports alternating constipation and diarrhea. Procedure performed: Esophagogastroduodenoscopy with biopsy Colonoscopy with polypectomy and biopsy Estimated blood loss: Minimal. Preoperative diagnosis: GERD, altered bowel function Anesthesia: MAC Procedure: After informed consent was obtained from the patient was brought into the endoscopy unit and IV sedation was administered by anesthesia under continuous monitoring. Initially upper endoscopy was done. The Olympus GF 190 video endoscope was inserted into the mouth and esophagus intubated without any difficulty and was gradually advanced into the stomach and duodenum and carefully examined. The bulb and second part of the duodenum appeared normal, with biopsies taken to rule out celiac sprue. The scope was then withdrawn into the stomach adequately insufflated with air and upon careful examination the antrum and body, cardia and fundus appeared normal, except for moderate scattered erythema in the antrum and body suggestive of moderate gastritis biopsies taken. The scope was then withdrawn into the esophagus. The GE junction was located at 33 cm to the incisor and biopsied. 2 cm hiatal hernia noted . It appeared regular with no erythema erosions or ulcerations. Rest of the esophagus appeared normal. Patient tolerated the procedure well. At this time the patient continued to remain sedation. Initial digital rectal examination was normal. Olympus CF 190 video colonoscope was then inserted into the rectum and gradually advanced to the cecum without any difficulty. Careful examination was performed as the scope was gradually being withdrawn. The prep was excellent. The cecum, ascending colon, transverse colon, descending colon, sigmoid colon and rectum appeared normal, But was somewhat tortuous. 2 flat polyps measuring 5 and 6 mm removed from the cecum and ascending colon with cold snare polypectomy. 2 diminutive polyps measuring 1 mm in size removed from the sigmoid colon and rectum with cold forcep polypectomy. Random biopsies taken of the right and left colon. Retroflexion was performed in the rectum and no lesions were noted. Patient tolerated the procedure well. Impression: 1. Moderate gastritis. Small hiatal hernia. Biopsies of the duodenum, antrum body and GE junction. 2. 2 flat polyps removed with cold snare polypectomy from the cecum and ascending colon. 2 diminutive polyps removed with cold forcep polypectomy from the sigmoid and rectum. Random biopsies taken of the right and left colon in the setting of altered bowel function. Recommendations: Findings of this examination were discussed with the patient as well as her fa norberto. Okay to resume diet. Okay to resume medications. Await pathology from polypectomies. follow up in GI clinic as scheduled. Recommend repeat colonoscopy in 5 years for colon polyps pending pathology from polypectomies.
[2020-08-19 09:38] VITALS: BP 150/72; PULSE 83
== END 2020-08-19 09:56 | disposition home or self-care (01) ==
LOC: ORWHC2ENDO 06:08
PROVIDERS: ATTEND Internal Medicine
DX: D12.0 Benign neoplasm of cecum (principal); D12.4 Benign neoplasm of descending colon; D12.5 Benign neoplasm of sigmoid colon; K62.1 Rectal polyp; K21.9 Gastro-esophageal reflux disease without esophagitis; K29.50 Unspecified chronic gastritis without bleeding; K44.9 Diaphragmatic hernia without obstruction or gangrene; Q43.8 Other specified congenital malformations of intestine; Z72.0 Tobacco use; G89.29 Other chronic pain; Z90.49 Acquired absence of other specified parts of digestive tract; Z90.89 Acquired absence of other organs; Z98.49 Cataract extraction status, unspecified eye; Z98.890 Other specified postprocedural states; J44.9 Chronic obstructive pulmonary disease, unspecified; F17.210 Nicotine dependence, cigarettes, uncomplicated; Z90.710 Acquired absence of both cervix and uterus; Z96.652 Presence of left artificial knee joint; Z97.2 Presence of dental prosthetic device (complete) (partial); Z79.02 Long term (current) use of antithrombotics/antiplatelets; Z79.891 Long term (current) use of opiate analgesic; Z79.899 Other long term (current) drug therapy; Z88.0 Allergy status to penicillin; Z88.6 Allergy status to analgesic agent; Z88.1 Allergy status to other antibiotic agents; Z91.041 Radiographic dye allergy status
CPT/HCPCS: 45385; 45380; 43239; 88305; J2405; J2704

== ENCOUNTER → 2020-11-24 | Outpatient (CLI) | payer BC ==
--- NOTE | 2020-11-24 09:44 | XR ---
EXAMINATION TYPE: XR chest 2V DATE OF EXAM: 11/24/2020 COMPARISON: Chest x-ray February 22, 2019 HISTORY: History of COPD with congestion. TECHNIQUE: Frontal and lateral views of the chest are obtained. FINDINGS: There are chronic parenchymal changes without suspicious new focal air space opacity, pleu ral effusion, or pneumothorax seen. The cardiac silhouette size is stable and within normal limits. The osseous structures are demineralized. Anterior fusion plate lower cervical spine redemonstrated . Cholecystectomy clips redemonstrated. IMPRESSION: Chronic changes without acute pulmonary process. No significant change from prior.
== END | disposition home or self-care (01) ==
LOC: RADXRMAIN 08:31
PROVIDERS: ATTEND Family Medicine
DX: J44.9 Chronic obstructive pulmonary disease, unspecified (principal)
CPT/HCPCS: 71046

== ENCOUNTER 2021-03-10 20:19 | Inpatient (IN) | payer BC ==
[2021-03-10 20:42] LABS: Glucose,Whole Blood 99 mg/dL (75-99)
[2021-03-10] MEDS ORDERED: FAMOTIDINE 20 MG/2 ML VIAL IV STA (20:45)
[2021-03-10] MEDS ORDERED: diphenhydrAMINE 50 MG/ML 1 ML VIAL IVP STA (20:45)
[2021-03-10] MEDS ORDERED: DEXAMETHASONE SOD PHOSPHATE 10 MG/ML 1 ML VIAL IV STA (20:45)
--- NOTE | 2021-03-10 20:49 | ED ---
General Adult HPI - General Chief complaint: Neuro Symptoms/Deficit Stated complaint: L Arm Numbness Time Seen by Provider: 03/10/21 20:36 Source: patient Mode of arrival: ambulatory Limitations: no limitations - History of Present Illness Initial comments: Dictation was produced using [employer] dictation software. please excuse any grammatical, word or spelling errors. Chief Complaint: 65-year-old female presents to the emergency department for strokelike symptoms starting at 7:25 PM History of Present Illness: Patient is a 65-year-old female she is currently undergoing workup for possible temporal arteritis. At 725 she was getting ready to lay down when all of a sudden she began feeling weakness in her left upper extremity and paresthesias to her right lower extremity. Patient told triage that she had some right facial numbness and numbness yesterday. She denies any of those symptoms today. Patient denies any headache. Patient denies any history of stroke. She does not take any anticoagulation medications. She does take Plavix. Patient states she hasn't taken her Plavix last couple days. The ROS documented in this emergency department record has been reviewed and confirmed by me. Those systems with pertinent positive or negative responses have been documented in the HPI. All other systems are other negative and/or noncontributory. PHYSICAL EXAM: General Impression: Alert and oriented x3, not in acute distress HEENT: Normocephalic atraumatic, extra-ocular movements intact, pupils equal and reactive to light bilaterally, mucous membranes moist. Cardiovascular: Heart regular rate and rhythm Chest: Able to complete full sentences, no retractions, no tachypnea Abdomen: abdomen soft, non-tender, non-distended, no organomegaly Musculoskeletal: Pulses present and equal in all extremities, no peripheral edema Motor: no focal deficits noted Neurological: CN II-XII grossly intact, left upper extremity drift, right lower extremity sensory paresthesias to light touch. NIH score of 2. Skin: Intact with no visualized rashes Psych: Normal affect and mood ED course: 65-year-old female presents with strokelike symptoms starting at 7:25 PM. Patient is NIH score of 2. Patient has low NIH score. She is not a good candidate for TPA administration due to risk outweighing the benefits. Vital signs upon arrival are within acceptable limits. Patient reports that she has an iodine ALLERGY. She states that her reaction is she feels cold when given iodine. Denies any throat swelling lightheadedness trouble breathing when she gets iodine. Code stroke paged. CT angioma of the head and neck was obtained showing no acute abnormality. There was however identification of severe right and moderate to severe left proximal ICA stenosis. Patient reevaluated at bedside at 10:30 PM found to be stable medical condition. Patient does not have any drift of the upper extremities. She complains of paresthesias to the right foot. However she still able to feel light touch. Case is discussed with the stroke neurologist who recommends medical management. Patient given aspirin. Patient be admitted with neurology on consultation. Patient reevaluated at bedside at 10:30 PM. Patient does not have any left upper extremity injury. She states that she does still have some paresthesias to the right foot but now she has some mild pain there. She is not aphasic. Non-dysarthric. Repeat NIH score of 1 for paresthesias to the right lower extremity. EKG interpretation: Ventricular rate 86, normal sinus rhythm,. 146, QRS 76, QTC 466. No TN prolongation, no QTC prolongation, no ST or T-wave changes noted. Overall, this EKG is unremarkable - Related Data Home Medications Medication Instructions Recorded Confirmed Carvedilol 25 mg PO BID 05/30/15 03/10/21 Losartan Potassium 100 mg PO DAILY 05/30/15 03/10/21 hydroCHLOROthiazide 25 mg PO DAILY 05/30/15 03/10/21 oxyCODONE-APAP 5-325MG [Percocet 1 tab PO PC-LUNCH PRN 08/03/17 03/10/21 5-325 mg] Pravastatin Sodium [Pravachol] 40 mg PO HS 02/20/20 03/10/21 Fluticasone Nasal [place] [Flonase 2 spr EA NOSTRIL DAILY 08/15/20 03/10/21 Nasal [place]] Ondansetron [Zofran] 4 mg PO Q8HR PRN 08/15/20 03/10/21 diphenhydrAMINE [Benadryl] 25 mg PO DAILY PRN 08/15/20 03/10/21 hydrALAZINE HCL [Apresoline] 25 mg PO TID 08/15/20 03/10/21 Albuterol Sulfate [Albuterol 2 puff PO RT-Q6H PRN 03/10/21 03/10/21 Sulfate Hfa] Baclofen 10 mg PO TID PRN 03/10/21 03/10/21 Bio Complete 3 1 tab PO BID 03/10/21 03/10/21 Dicyclomine HCl 20 mg PO TID 03/10/21 03/10/21 Ipratropium [place] [Atrovent Hfa] 2 puff INHALATION RT-QID 03/10/21 03/10/21 Ipratropium-Albuterol Nebulize 3 ml INHALATION RT-BID 03/10/21 03/10/21 [Duoneb 0.5 mg-3 mg/3 ml Soln] Levofloxacin [Levaquin] 500 mg PO DAILY 03/10/21 03/10/21 Morphine Sulfate ER [Ms Contin] 15 mg PO Q12HR 03/10/21 03/10/21 Phenylephrine HCl/Acetaminophn 1 tab PO BID PRN 03/10/21 03/10/21 [Tylenol Sinus Headache Caplet] Previous Rx's Medication Instructions Recorded Clopidogrel [Plavix] 75 mg PO DAILY #30 tab 06/05/15 Allergies Allergy/AdvReac Type Severity Reaction Status Date / Time cephalexin [From Keflex] Allergy Severe Anaphylaxis Verified 03/10/21 22:05 aspirin Allergy Anaphylaxis Verified 03/10/21 22:05 NSAIDS (Non-Steroidal Allergy Anaphylaxis Verified 03/10/21 22:05 Anti-Inflamma Penicillins Allergy Unknown Verified 03/10/21 22:05 Iodinated Contrast Media AdvReac Mild cold Verified 03/10/21 22:05 [Iodinated Contrast Media - symptoms, IV Dye] runny nose, itchy eyes cough Review of Systems ROS Statement: Those systems with pertinent positive or pertinent negative responses have been documented in the HPI. ROS Other: All systems not noted in ROS Statement are negative. Past Medical History Past Medical History: Asthma, Coronary Artery Disease (CAD), Cancer, COPD, Deep Vein Thrombosis (DVT), Fibromyalgia, GERD/Reflux, Hyperlipidemia, Hypertension, Osteoarthritis (OA), Pneumonia, Respiratory Disorder, Vascular Disorder Additional Past Medical History / Comment(s): pad,chronic bronchitis, nodules on thyroid, leukoplakia-lip and vocal cords. 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 2014 had stenting of aorto to rt ext iliac bypass, rt foot 2nd toe reconstructive sx, rt carotid endarterectomy, egd/colonoscopy ,lt knee replacment.lt elbow sx,umbilical hernia repair,bilcarpal tunnel release,lt and rt breast bx-neg, partial hysterectomy Past Anesthesia/Blood Transfusion Reactions: Previous Problems w/ Anesthesia, Postoperative Nausea & Vomiting (PONV) Additional Past Anesthesia/Blood Transfusion Reaction / Comment(s): difficulty waking from anesthesia Past Psychological History: No Psychological Hx Reported Smoking Status: Current every day smoker Past Alcohol Use History: Abuse, Daily Past Drug Use History: None Reported - Past Family History Mother Family Medical History: Cancer, Coronary Artery Disease (CAD), Renal Disease Additional Family Medical History / Comment(s): CABG, LUNG CANCER, Brother(s) Family Medical History: Coronary Artery Disease (CAD), CVA/TIA Additional Family Medical History / Comment(s): 1 BROTHER CABG, 1 BROTHER STROKE Father Family Medical History: Coronary Artery Disease (CAD), Renal Disease Additional Family Medical History / Comment(s): X4 OPEN HEART SX. HUGE CARDIAC HX ON DADS SIDE OF FAMILY General Exam Limitations: no limitations Course Vital Signs 03/10/21 03/10/21 03/10/21 20:32 20:35 20:50 Temperature 98.4 F 98.3 F 98.3 F Pulse Rate 93 74 Respiratory 20 16 Rate Blood Pressure 93/61 136/64 O2 Sat by Pulse 95 97 Oximetry 03/10/21 03/10/21 03/10/21 21:05 21:20 21:35 Temperature 98.3 F 98.4 F 98.4 F Pulse Rate 76 79 77 Respiratory 16 16 14 Rate Blood Pressure 143/71 116/56 105/50 O2 Sat by Pulse 96 97 96 Oximetry Medical Decision Making - Lab Data Result diagrams: 03/10/21 20:46 03/10/21 20:46 Lab Results 03/10/21 03/10/21 03/10/21 Range/Units 20:40 20:46 20:46 WBC 8.6 (3.8-10.6) k/uL RBC 4.21 (3.80-5.40) m/uL Hgb 13.0 (11.4-16.0) gm/dL Hct 39.0 (34.0-46.0) % MCV 92.8 (80.0-100.0) fL MCH 31.0 (25.0-35.0) pg MCHC 33.4 (31.0-37.0) g/dL RDW 12.7 (11.5-15.5) % Plt Count 265 (150-450) k/uL MPV 7.5 Neutrophils % 60 % Lymphocytes % 31 % Monocytes % 5 % Eosinophils % 2 % Basophils % 1 % Neutrophils # 5.1 (1.3-7.7) k/uL Lymphocytes # 2.6 (1.0-4.8) k/uL Monocytes # 0.4 (0-1.0) k/uL Eosinophils # 0.1 (0-0.7) k/uL Basophils # 0.1 (0-0.2) k/uL PT 9.6 (9.0-12.0) sec INR 0.9 (<1.2) APTT 22.3 (22.0-30.0) sec Sodium (137-145) mmol/L Potassium (3.5-5.1) mmol/L Chloride (98-107) mmol/L Carbon Dioxide (22-30) mmol/L Anion Gap mmol/L BUN (7-17) mg/dL Creatinine (0.52-1.04) mg/dL Est GFR (CKD-EPI)AfAm (>60 ml/min/1.73 sqM) Est GFR (CKD-EPI)NonAf (>60 ml/min/1.73 sqM) Glucose (74-99) mg/dL POC Glucose (mg/dL) 99 (75-99) mg/dL POC Glu Program Facilitator ID Ousmane Cespedes Calcium (8.4-10.2) mg/dL Total Bilirubin (0.2-1.3) mg/dL AST (14-36) U/L ALT (4-34) U/L Alkaline Phosphatase (38-126) U/L Troponin I (0.000-0.034) ng/mL Total Protein (6.3-8.2) g/dL Albumin (3.5-5.0) g/dL 03/10/21 03/10/21 Range/Units 20:46 20:46 WBC (3.8-10.6) k/uL RBC (3.80-5.40) m/uL Hgb (11.4-16.0) gm/dL Hct (34.0-46.0) % MCV (80.0-100.0) fL MCH (25.0-35.0) pg MCHC (31.0-37.0) g/dL RDW (11.5-15.5) % Plt Count (150-450) k/uL MPV Neutrophils % % Lymphocytes % % Monocytes % % Eosinophils % % Basophils % % Neutrophils # (1.3-7.7) k/uL Lymphocytes # (1.0-4.8) k/uL Monocytes # (0-1.0) k/uL Eosinophils # (0-0.7) k/uL Basophils # (0-0.2) k/uL PT (9.0-12.0) sec INR (<1.2) APTT (22.0-30.0) sec Sodium 136 L (137-145) mmol/L Potassium 3.3 L (3.5-5.1) mmol/L Chloride 100 (98-107) mmol/L Carbon Dioxide 27 (22-30) mmol/L Anion Gap 9 mmol/L BUN 13 (7-17) mg/dL Creatinine 0.85 (0.52-1.04) mg/dL Est GFR (CKD-EPI)AfAm 85 (>60 ml/min/1.73 sqM) Est GFR (CKD-EPI)NonAf 73 (>60 ml/min/1.73 sqM) Glucose 94 (74-99) mg/dL POC Glucose (mg/dL) (75-99) mg/dL POC Glu Program Facilitator ID Calcium 9.5 (8.4-10.2) mg/dL Total Bilirubin 0.3 (0.2-1.3) mg/dL AST 20 (14-36) U/L ALT 10 (4-34) U/L Alkaline Phosphatase 94 (38-126) U/L Troponin I <0.012 (0.000-0.034) ng/mL Total Protein 6.5 (6.3-8.2) g/dL Albumin 4.1 (3.5-5.0) g/dL Critical Care Time Critical Care Time: Yes Total Critical Care Time: 33 Disposition Clinical Impression: Cerebrovascular accident (CVA) Disposition: ADMITTED IP TO THIS [facility] Condition: Fair Referrals: Carlton Orozco MD [Primary Care Provider] - 1-2 days
[2021-03-10 21:05] LABS: Basophils # (A) 0.1 k/uL (0-0.2); Basophils % (A) 1 %; Eosinophils # (A) 0.1 k/uL (0-0.7); Eosinophils % (A) 2 %; Lymphocytes # (A) 2.6 k/uL (1.0-4.8); Lymphocytes % (A) 31 %; MCHC 33.4 g/dL (31.0-37.0); MCV 92.8 fL (80.0-100.0); Mean Platelet Volume 7.5; Monocytes # (A) 0.4 k/uL (0-1.0); Monocytes % (A) 5 %; Neutrophils # (A) 5.1 k/uL (1.3-7.7); Neutrophils % (A) 60 %; Platelet Count 265 k/uL (150-450); RBC 4.21 m/uL (3.80-5.40); RDW 12.7 % (11.5-15.5); WBC 8.6 k/uL (3.8-10.6)
[2021-03-10 21:13] LABS: INR 0.9 (<1.2); Partial Thromboplastin Time 22.3 sec (22.0-30.0); Prothrombin Time 9.6 sec (9.0-12.0)
[2021-03-10 21:14] LABS: Albumin 4.1 g/dL (3.5-5.0); Calcium 9.5 mg/dL (8.4-10.2); Potassium 3.3 mmol/L (3.5-5.1); Total Bilirubin 0.3 mg/dL (0.2-1.3); Total Protein 6.5 g/dL (6.3-8.2)
--- NOTE | 2021-03-10 21:26 | CT ---
EXAM: CT brain wo con for TPA CLINICAL HISTORY: Suspected stroke. COMPARISON: None TECHNIQUE: Contiguous axial noncontrast images of the brain were obtained. Coronal and sagittal refor mats were generated and reviewed. Automated dose control was used for this exam. FINDINGS: There is no evidence for intracranial hemorrhage, mass effect or midline shift. White matter is gross ly preserved. Ventricular size and configuration is within normal limits for degree of parenchymal volume. The paranasal sinuses are clear. The mastoid air cells are clear. No evidence for calvarial fracture. IMPRESSION: No acute intracranial abnormality.
--- NOTE | 2021-03-10 21:58 | CT ---
EXAMINATION TYPE: CT angio head neck DATE OF EXAM: 03/10/2021 HISTORY: POSSIBLE STROKE COMPARISON: None available CT DLP: 374.8 mGycm. Automated Exposure Control for Dose Reduction was Utilized. TECHNIQUE: CTA scan of the head/neck is performed with IV Contrast, patient injected with 65 mL of I sovue 370, axial images are obtained, coronal and sagittal reformatted images are reviewed. 3D recons tructed images are created on an independent workstation and reviewed. FINDINGS: There is incidental 1.8 cm right thyroid nodule with internal calcifications seen. There is moderate to severe atherosclerosis of the aortic arch and carotid bulbs, most notable of the right carotid bulb. There is severe greater than 70% stenosis of the right ICA origin and moderate t o severe approximately 50-70% stenosis of the left ICA origin. Otherwise normal three-vessel branchin g of the aorta. No additional high-grade stenosis, dissection or aneurysm seen in the bilateral commo n carotid, cervical internal carotid and vertebral arteries. There is no evidence of high-grade stenosis, dissection or aneurysm in the intracranial internal pierce tid arteries, anterior, middle and posterior cerebral arteries as well as in the imaged vertebral and basilar arteries. The communicating arteries are unremarkable. There is note of a nondominant left v ertebral artery with dysplastic V4 segment. C5-C7 fusion and centrilobular emphysema seen. IMPRESSION: No acute abnormality of the CTA head/neck. Severe right and moderate to severe left proximal ICA stenosis. NASCET criteria was used in interpretation of this exam?
--- NOTE | 2021-03-10 22:11 | XR ---
EXAMINATION TYPE: XR chest 1V portable DATE OF EXAM: 03/10/2021 COMPARISON: 11/24/2020 HISTORY: Altered mental status TECHNIQUE: Single frontal view of the chest is obtained. FINDINGS: There is no focal air space opacity, pleural effusion, or pneumothorax seen. The cardiac silhouette size is within normal limits. The osseous structures are stable. Cervical spine fusion s een. IMPRESSION: No acute process.
[2021-03-10] MEDS ORDERED: ASPIRIN 81 MG PO STA (22:29)
[2021-03-10] MEDS ORDERED: SODIUM CHLORIDE 0.9% 1,000 ML IV ONE (22:40)
[2021-03-10] MEDS ORDERED: ALBUTEROL NEBULIZED 2.5 MG/3 ML INHALATION PRN (22:52)
[2021-03-10] MEDS ORDERED: ONDANSETRON 4 MG TAB PO PRN (22:52)
[2021-03-10] MEDS ORDERED: CLOPIDOGREL 75 MG TAB PO STA ×2 (22:52→23:00)
[2021-03-10] MEDS ORDERED: Potassium Replacement Protocol 1 EACH MISC MISCELLANE PRN (22:59)
[2021-03-10] MEDS: SODIUM CHLORIDE 0.9% 1,000 ML IV SCH (23:12)
[2021-03-10] MEDS: POTASSIUM CHLORIDE 10 MEQ in WATER FOR INJECTION 1 100ML.BAG IVPB SCH ×3 (23:13→23:15)
[2021-03-10 23:22] LABS: Magnesium 2.1 mg/dL (1.6-2.3)
[2021-03-10] MEDS ORDERED: POTASSIUM CHLORIDE ER 20 MEQ TAB.ER PO STA (23:27)
[2021-03-10 23:40] LABS: T4, Free (Free Thyroxine) 1.09 ng/dL (0.78-2.19)
[2021-03-11 04:55] LABS: Basophils % (A) 0 %; Eosinophils % (A) 0 %; HCT 37.6 % (34.0-46.0); HGB 12.4 gm/dL (11.4-16.0); Lymphocytes # (A) 0.7 k/uL (1.0-4.8); Lymphocytes % (A) 13 %; MCH 31.4 pg (25.0-35.0); Mean Platelet Volume 7.7; Monocytes # (A) 0.1 k/uL (0-1.0); Monocytes % (A) 2 %; Neutrophils # (A) 4.4 k/uL (1.3-7.7); Neutrophils % (A) 84 %; Platelet Count 233 k/uL (150-450); RBC 3.95 m/uL (3.80-5.40); RDW 12.9 % (11.5-15.5); WBC 5.2 k/uL (3.8-10.6)
[2021-03-11 05:08] LABS: African American GFR (CKD) >90 (>60 ml/min/1.73 sqM); Anion Gap 8 mmol/L; Blood Urea Nitrogen 12 mg/dL (7-17); Calcium 9.1 mg/dL (8.4-10.2); Carbon Dioxide 20 mmol/L (22-30); Chloride 107 mmol/L (98-107); Glucose 151 mg/dL (74-99); Non-African American GFR(CKD) 85 (>60 ml/min/1.73 sqM); Potassium 3.9 mmol/L (3.5-5.1); Sodium 135 mmol/L (137-145)
[2021-03-11] MEDS: POTASSIUM CHLORIDE 10 MEQ in WATER FOR INJECTION 1 100ML.BAG IVPB SCH (05:56)
[2021-03-11] MEDS: IPRATROPIUM 0.5 MG/2.5 ML NEBU INHALATION SCH ×4 (07:24→20:11)
[2021-03-11] MEDS: hydroCHLOROthiazide 25 MG TAB PO SCH (07:50)
[2021-03-11] MEDS: LACTOBACILLUS ACIDOPH & BULGAR 1 EACH PACKET PO SCH ×2 (07:50→20:28)
[2021-03-11] MEDS: CLOPIDOGREL 75 MG TAB PO SCH (07:50)
[2021-03-11] MEDS: FLUTICASONE 50MCG/SPRAY NASAL 16GM EA NOSTRIL SCH (07:50)
[2021-03-11] MEDS: carvediloL 12.5 MG TAB PO SCH ×2 (07:51→20:28)
[2021-03-11] MEDS: hydrALAZINE HCL 25 MG TAB PO SCH ×3 (07:51→20:28)
[2021-03-11] MEDS: LOSARTAN 50 MG TAB PO SCH (07:51)
[2021-03-11] MEDS: ASPIRIN 325 MG TAB PO SCH (07:51)
[2021-03-11] MEDS ORDERED: IPRATROPIUM-ALBUTEROL 3 ML NEB INHALATION SCH (08:00)
[2021-03-11 10:40] LABS: Chol/HDL Ratio 3.28; Cholesterol 141 mg/dL (0-200); LDL Cholesterol,Calculated 79.6 mg/dL (0.0-131.0)
[2021-03-11 14:10] LABS: Folate, Serum 11.3 ng/mL
--- NOTE | 2021-03-11 14:40 | P.GSCN ---
History of Present Illness Consult date: 03/11/21 Reason for Consult: Carotid stenosis Requesting physician: Taiwo William History of present illness: This is a 65-year-old female who presented to the emergency department yesterday with complaints of bilateral upper extremity weakness, left greater than right. Bilateral lower extremity tingling. She has a past medical history of peripheral arterial disease status post aorta iliac bypass stenting, vascular disease status post right carotid endarterectomy 2014, coronary artery disease, asthma, COPD, and skin cancer. The patient states she has a lot of issues with her neck and back, she's had previous cervical surgery. She sees Dr. Hall and receives injections for her neck and back pain. Patient also states she's been having headaches for the last 2 months duration and seeing flashers and floaters with blurred vision in the right knee. She states that the headache is mostly in the right temporal and parietal region. Patient states they were working her up for temporal arteritis. States she had previous blood work that showed no inflammation. She was currently being treated with carbamazepine but stopped about a week and a half ago due to abdominal cramping. She is now stating she is getting headaches on the left side of her head and some floaters in her left eye. Weakness has improved bilaterally. Patient states that the left upper extremity started to get numb and tingly and then heavier and then an attempt she came to the emergency department she felt like her she could not lift her arm. She states she is right-hand dominant. She has no previous history of stroke. Dr. Manjarrez performed right lower extremity aorta iliac bypass, she is unsure who did her carotid endarterectomy. Thinks possibly Dr. Navarrete. She is currently denying any focal symptoms other then slight blurred vision in the right eye and headache. She states she does follow regularly with Dr. Manjarrez for coronary artery disease and monitoring of carotids. States she has not seen him recently, maybe about 1 year ago. Patient currently denies any shortness of breath, chest pain, abnormal pains, nausea, vomiting, fevers or chills. She states she still gets floaters and flashes in right eye and now in left eye. This happens periodically Bilateral upper extremity and lower extremity weakness has improved. She is denying any loss of vision, denies any slurred speech or difficulty with getting words out. Denies any difficulty with swallowing. She is alert and oriented 3. Review of Systems A 14 point review of systems was completed and all pertinent positives and negatives as stated in the HPI Past Medical History Past Medical History: Asthma, Coronary Artery Disease (CAD), Cancer, COPD, Deep Vein Thrombosis (DVT), Fibromyalgia, GERD/Reflux, Hyperlipidemia, Hypertension, Osteoarthritis (OA), Pneumonia, Respiratory Disorder, Vascular Disorder Additional Past Medical History / Comment(s): pad,chronic bronchitis, nodules on thyroid, leukoplakia-lip and vocal cords. 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 2014 had stenting of aorto to rt ext iliac bypass, rt foot 2nd toe reconstructive sx, rt carotid endarterectomy, egd/colonoscopy ,lt knee replacment.lt elbow sx,umbilical hernia repair,bilcarpal tunnel release,lt and rt breast bx-neg, partial hysterectomy Past Anesthesia/Blood Transfusion Reactions: Previous Problems w/ Anesthesia, Postoperative Nausea & Vomiting (PONV) Additional Past Anesthesia/Blood Transfusion Reaction / Comm: difficulty waking from anesthesia Past Psychological History: No Psychological Hx Reported Additional Psychological History / Comment(s): . Smoking Status: Current every day smoker Past Alcohol Use History: Abuse, Daily Additional Past Alcohol Use History / Comment(s): started smoking 1977 down from 2 ppd to 1/2 ppd. states recently drinking "fireball whiskey " in her coffee at night to help with pain. Past Drug Use History: None Reported - Past Family History Mother Family Medical History: Cancer, Coronary Artery Disease (CAD), Renal Disease Additional Family Medical History / Comment(s): CABG, LUNG CANCER, Brother(s) Family Medical History: Coronary Artery Disease (CAD), CVA/TIA Additional Family Medical History / Comment(s): 1 BROTHER CABG, 1 BROTHER STROKE Father Family Medical History: Coronary Artery Disease (CAD), Renal Disease Additional Family Medical History / Comment(s): X4 OPEN HEART SX. HUGE CARDIAC HX ON DADS SIDE OF FAMILY Medications and Allergies Home Medications Medication Instructions Recorded Confirmed Type Carvedilol 25 mg PO BID 05/30/15 03/10/21 History Losartan Potassium 100 mg PO DAILY 05/30/15 03/10/21 History hydroCHLOROthiazide 25 mg PO DAILY 05/30/15 03/10/21 History Clopidogrel [Plavix] 75 mg PO DAILY #30 tab 06/05/15 03/10/21 Rx oxyCODONE-APAP 5-325MG [Percocet 1 tab PO PC-LUNCH PRN 08/03/17 03/10/21 History 5-325 mg] Pravastatin Sodium [Pravachol] 40 mg PO HS 02/20/20 03/10/21 History Fluticasone Nasal [place] [Flonase 2 spr EA NOSTRIL DAILY 08/15/20 03/10/21 History Nasal [place]] Ondansetron [Zofran] 4 mg PO Q8HR PRN 08/15/20 03/10/21 History diphenhydrAMINE [Benadryl] 25 mg PO DAILY PRN 08/15/20 03/10/21 History hydrALAZINE HCL [Apresoline] 25 mg PO TID 08/15/20 03/10/21 History Albuterol Sulfate [Albuterol 2 puff PO RT-Q6H PRN 03/10/21 03/10/21 History Sulfate Hfa] Baclofen 10 mg PO TID PRN 03/10/21 03/10/21 History Bio Complete 3 1 tab PO BID 03/10/21 03/10/21 History Dicyclomine HCl 20 mg PO TID 03/10/21 03/10/21 History Ipratropium [place] [Atrovent Hfa] 2 puff INHALATION RT-QID 03/10/21 03/10/21 History Ipratropium-Albuterol Nebulize 3 ml INHALATION RT-BID 03/10/21 03/10/21 History [Duoneb 0.5 mg-3 mg/3 ml Soln] Levofloxacin [Levaquin] 500 mg PO DAILY 03/10/21 03/10/21 History Morphine Sulfate ER [Ms Contin] 15 mg PO Q12HR 03/10/21 03/10/21 History Phenylephrine HCl/Acetaminophn 1 tab PO BID PRN 03/10/21 03/10/21 History [Tylenol Sinus Headache Caplet] Allergies Allergy/AdvReac Type Severity Reaction Status Date / Time cephalexin [From Keflex] Allergy Severe Anaphylaxis Verified 03/10/21 22:05 aspirin Allergy Anaphylaxis Verified 03/10/21 22:05 NSAIDS (Non-Steroidal Allergy Anaphylaxis Verified 03/10/21 22:05 Anti-Inflamma Penicillins Allergy Unknown Verified 03/10/21 22:05 Iodinated Contrast Media AdvReac Mild cold Verified 03/10/21 22:05 [Iodinated Contrast Media - symptoms, IV Dye] runny nose, itchy eyes cough Surgical - Exam Vital Signs Temp Pulse Resp BP Pulse Ox 98.4 F 93 20 93/61 95 03/10/21 20:32 03/10/21 20:32 03/10/21 20:32 03/10/21 20:32 03/10/21 20:32 General appearance: The patient is alert, oriented, appears in no acute distress. HET: Head is normocephalic and atraumatic. Pupils are equal and reactive. Neck: Supple without lymphadenopathy. Trachea midline. Heart: S1 S2. Regular rate and rhythm. Lungs: Diminished bilaterally. Abdomen: Soft, nontender, nondistended. Extremities: Normal skin color and turgor. No cyanosis, rash, ulceration, clubbing, or edema. Radial and pedal pulses are 2/4 bilaterally. Neurological: Patient is alert and oriented 3. Speech is fluent, she answers questions appropriately and follows commands. She has facial symmetry. Tongue protrudes midline. She has mild weakness to right upper and lower extremity compared to left, 4/5. Results - Labs 03/11/21 04:24 03/11/21 04:24 Abnormal Lab Results - Last 24 Hours (Table) 03/10/21 03/11/21 03/11/21 Range/Units 20:46 04:24 04:24 Lymphocytes # 0.7 L (1.0-4.8) k/uL Sodium 136 L 135 L (137-145) mmol/L Potassium 3.3 L (3.5-5.1) mmol/L Carbon Dioxide 20 L (22-30) mmol/L Glucose 151 H (74-99) mg/dL Diabetes panel 03/10/21 03/11/21 Range/Units 20:46 04:24 Sodium 136 L 135 L (137-145) mmol/L Potassium 3.3 L 3.9 (3.5-5.1) mmol/L Chloride 100 107 (98-107) mmol/L Carbon Dioxide 27 20 L (22-30) mmol/L BUN 13 12 (7-17) mg/dL Creatinine 0.85 0.75 (0.52-1.04) mg/dL Glucose 94 151 H (74-99) mg/dL Calcium 9.5 9.1 (8.4-10.2) mg/dL AST 20 (14-36) U/L ALT 10 (4-34) U/L Alkaline Phosphatase 94 (38-126) U/L Total Protein 6.5 (6.3-8.2) g/dL Albumin 4.1 (3.5-5.0) g/dL Triglycerides 92.0 (0.0-149.0) mg/dL HDL Cholesterol 43.0 (40.0-60.0) mg/dL Thyroid panel 03/10/21 Range/Units 20:50 TSH 0.675 (0.465-4.680) mIU/L Calcium panel 03/10/21 03/11/21 Range/Units 20:46 04:24 Calcium 9.5 9.1 (8.4-10.2) mg/dL Albumin 4.1 (3.5-5.0) g/dL Pituitary panel 03/10/21 03/10/21 03/11/21 Range/Units 20:46 20:50 04:24 Sodium 136 L 135 L (137-145) mmol/L Potassium 3.3 L 3.9 (3.5-5.1) mmol/L Chloride 100 107 (98-107) mmol/L Carbon Dioxide 27 20 L (22-30) mmol/L BUN 13 12 (7-17) mg/dL Creatinine 0.85 0.75 (0.52-1.04) mg/dL Glucose 94 151 H (74-99) mg/dL Calcium 9.5 9.1 (8.4-10.2) mg/dL TSH 0.675 (0.465-4.680) mIU/L Adrenal panel 03/10/21 03/11/21 Range/Units 20:46 04:24 Sodium 136 L 135 L (137-145) mmol/L Potassium 3.3 L 3.9 (3.5-5.1) mmol/L Chloride 100 107 (98-107) mmol/L Carbon Dioxide 27 20 L (22-30) mmol/L BUN 13 12 (7-17) mg/dL Creatinine 0.85 0.75 (0.52-1.04) mg/dL Glucose 94 151 H (74-99) mg/dL Calcium 9.5 9.1 (8.4-10.2) mg/dL Total Bilirubin 0.3 (0.2-1.3) mg/dL AST 20 (14-36) U/L ALT 10 (4-34) U/L Alkaline Phosphatase 94 (38-126) U/L Total Protein 6.5 (6.3-8.2) g/dL Albumin 4.1 (3.5-5.0) g/dL - Imaging Comments: Brain CT shows no intracranial abnormality CT angiogram of head and neck impression states no acute abnormality of the CTA head/neck. Severe right and [id number] left proximal ICA stenosis. Assessment and Plan Assessment: 1. Severe right and moderate to severe left proximal ICA stenosis per CT angiogram 2. Bilateral Extremity weakness 3. Headaches 4. History of peripheral arterial disease status post right aorta iliac bypass 5. History of carotid stenosis status post right carotid endarterectomy 6. Coronary artery disease 7. COPD 8. Current smoker 9. Daily alcohol use Plan: 1. Carotid ultrasound ordered 2. Sed rate and CRP ordered 3. Continue aspirin, Plavix, and statin 4. Appreciate recommendations from neurology 5. Tobacco cessation 6. Alcohol abstinence 7. Further recommendations to follow Thank you for this consultation and allowing us to take part in the plan of care of your patient during her hospital stay The impression and plan of care has been dictated as directed. Dr. Morrison I performed a history and examination of this patient, discussed the same with the dictator. I agree with the dictator's note ,documented as a scribe. Any additional findings or plans will be noted.
--- NOTE | 2021-03-11 14:57 | US ---
EXAMINATION TYPE: US carotid duplex BILAT DATE OF EXAM: 03/11/2021 COMPARISON: CTA neck from yesterday CLINICAL HISTORY: right sided weakness. Hx right CCA surgery per patient. Suboptimal exam due to patient unable to stay still from pain EXAM MEASUREMENTS: RIGHT: Peak Systolic Velocity (PSV) cm/sec ----- Right CCA: 29.1 ----- Right ICA: 139.9 ----- Right ECA: 76.8 ICA/CCA ratio: 4.8 RIGHT: End Diastole cm/sec ----- Right CCA: 12.0 ----- Right ICA: 28.3 ----- Right ECA: 19.7 LEFT: Peak Systolic Velocity (PSV) cm/sec ----- Left CCA: 120.0 ----- Left ICA: 267.6 ----- Left ECA: 337.4 ICA/CCA ratio: 2.2 LEFT: End Diastole cm/sec ----- Left CCA: 43.1 ----- Left ICA: 38.4 ----- Left ECA: 94.2 VERTEBRALS (direction of flow): Right Vertebral: Antegrade Left Vertebral: Antegrade Rhythm: Normal Suboptimal study due to patient inability to hold still. Severe plaque right carotid bulb and silver sc alanna images with increased peak systolic velocity in abnormal ratio. Moderate to severe plaque left ca rotid bulb on ultrasound with increased peak systolic velocity left internal carotid artery and abnor mal ratio. IMPRESSION: Suboptimal study. Bilateral significant stenosis seen better on CTA versus ultrasound. Focal Stenosis greater than 70% on the right is thought present on CTA and between 50-69% on the lef t based on CTA and ultrasound. Criteria for Assigning % of Stenosis / Diameter reduction (Estimation based on the indirect measurements of the internal carotid artery velocities (ICA PSV). 1. Normal (no stenosis)=ICA PSV < 125 cm/s: ratio < 2.0: ICA EDV<40 cm/s. 2. Less than 50% stenosis=ICA PSV < 125 cm/s: ratio < 2.0: ICA EDV<40 cm/s. 3. 50 to 69% stenosis=ICA PSV of 125 to 230 cm/s: ration 2.0 ? 4.0: ICA EDV 40-100 cm/s. 4. Greater than 70% stenosis to near occlusion= ICA PSV > 230 cm/s: ratio > 4.0: ICA EDV > 100 cm/s. 5. Near occlusion= ICA PSV velocities may be low or undetectable: variable ratio and ICA EDV. 6. Total occlusion=unable to detect flow.
[2021-03-11] MEDS ORDERED: oxyCODONE-APAP 5-325MG 1 EACH TAB PO PRN (15:34)
[2021-03-11] MEDS ORDERED: BACLOFEN 10 MG TAB PO PRN (15:34)
[2021-03-11] MEDS ORDERED: MORPHINE SULFATE 4 MG/ML SYRINGE IVP STA (15:37)
--- NOTE | 2021-03-11 15:38 | P.CNNES ---
History of Present Illness Consult date: 03/11/21 Requesting physician: Tobias Chaves Reason for Consult: Stroke code History of Present Illness: Patient is a 65-year-old female came to the hospital yesterday at 8:19 PM for possible new onset headaches and TIA. Also complains of multiple neurological symptoms as mentioned below. Patient has history of migraines when she was young. She would have migraines that would last for 3 days, associated with nausea vomiting light and noise sensitivity. As she has grown older, she has not been having those regular mi graines. Patient states that around October 2020, she started noticing flashing and floaters in the right eye. About 3 weeks after the onset of visual symptoms, she started having "terrific headache", pointing to the right parietal region, which wraps around the eyes and upper right nose region. The headache lasts about 2 hours and it is very intense. She denies any ptosis or watering of the eyes, although her daughter has noticed that her face becomes very red and appears swollen when it happens. She saw an rehabilitation supervisor in early January 2021, who performed ESR which was normal. She was told that she had right retinal detachment. However as the headaches have persisted, he wanted patient to undergo right temporal artery biopsy. She is getting headache once a day usually in the afternoon and when it happens, she cannot move. The headache does not wake her up from sleep. Patient states that in the last 2 weeks, she has been noticing some floaters in the left eye as well. Just today, she is noticing the headache is extending to the left side of her head. Patient states couple days ago, she developed numbness of right lower half of the face from side of the lip to the ear. It would occur every time she would lay on that side. If she was sitting, the symptoms would go away. 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 There was no weakness of the legs, or facial droop or slurred speech or problem with the vision. She got concerned therefore came to the ER. Vital signs on arrival blood pressure 93/61, pulse rate 93, temperature 98.4. Blood test shows normal CBC, PT/PTT, sodium 136 potassium 3.3, normal renal and hepatic panel. Troponin negative, TFTs normal. [place] virus PCR negative. CT head showed no acute process. CTA of head and neck shows severe right (>70%) and moderate to severe left (50-70%) proximal ICA stenosis. Chest x-ray showed no acute process. EKG shows normal sinus rhythm. Stroke code was activated. Patient's NIH stroke scale was 2. She was not a go od candidate for TPA due to risks outweigh the benefits. ED physician discuss case with the stroke neurologist who recommended medical management. Repeat NIH stroke scale in the ER was 1. Patient was given loading dose of Plavix 300 mg. Home medications include HCTZ 25 mg, carvedilol 25 mg twice a day, losartan 100 mg daily, Plavix 75 mg, oxycodone, Pravachol 40 mg, hydralazine 25 mg 3 times a day, Zofran, albuterol, baclofen 10 mg 3 times a day when necessary morphine sulfate ER 15 mg every 12 hours. Patient has been given aspirin 324 mg in the ER. Patient states that she has chronic back pain, for which she follows up with Dr. Hicks office. Patient has history of right CEA in 2013. Patient has chronic back problem, as she was a gymnast for 13 years. She has suffered from a lot of injuries to her spine. She had cervical fusion, knee replacement. Patient has hypertension den ies diabetes. She has smoked half to 1 pack per day for 40 years. Denies any alcohol use or any drugs. Review of Systems As above in detail. Denies any problem with control of bowels or bladder. No chest pain, abdominal pain, nausea vomiting diarrhea. Denies double vision. Denies loss of hearing. No fever or chills. No rash. No weight gain. All other review of systems reviewed and noncontributory. Past Medical History Past Medical History: Asthma, Coronary Artery Disease (CAD), Cancer, COPD, Deep Vein Thrombosis (DVT), Fibromyalgia, GERD/Reflux, Hyperlipidemia, Hypertension, Osteoarthritis (OA), Pneumonia, Respiratory Disorder, Vascular Disorder Additional Past Medical History / Comment(s): pad,chronic bronchitis, nodules on thyroid, leukoplakia-lip and vocal cords. 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 2014 had stenting of aorto to rt ext iliac bypass, rt foot 2nd toe reconstructive sx, rt carotid endarterectomy, egd/colonoscopy ,lt knee replacment.lt elbow sx,umbilical hernia repair,bilcarpal tunnel release,lt and rt breast bx-neg, partial hysterectomy Past Anesthesia/Blood Transfusion Reactions: Previous Problems w/ Anesthesia, Postoperative Nausea & Vomiting (PONV) Additional Past Anesthesia/Blood Transfusion Reaction / Comment(s): difficulty waking from anesthesia Past Psychological History: No Psychological Hx Reported Additional Psychological History / Comment(s): . Smoking Status: Current every day smoker Past Alcohol Use History: Abuse, Daily Additional Past Alcohol Use History / Comment(s): started smoking 1977 down from 2 ppd to 1/2 ppd. states recently drinking "fireball whiskey " in her coffee at night to help with pain. Past Drug Use History: None Reported - Past Family History Mother Family Medical History: Cancer, Coronary Artery Disease (CAD), Renal Disease Additional Family Medical History / Comment(s): CABG, LUNG CANCER, Brother(s) Family Medical History: Coronary Artery Disease (CAD), CVA/TIA Additional Family Medical History / Comment(s): 1 BROTHER CABG, 1 BROTHER STROKE Father Family Medical History: Coronary Artery Disease (CAD), Renal Disease Additional Family Medical History / Comment(s): X4 OPEN HEART SX. HUGE CARDIAC HX ON DADS SIDE OF FAMILY Medications and Allergies Home Medications Medication Instructions Recorded Confirmed Type Carvedilol 25 mg PO BID 05/30/15 03/10/21 History Losartan Potassium 100 mg PO DAILY 05/30/15 03/10/21 History hydroCHLOROthiazide 25 mg PO DAILY 05/30/15 03/10/21 History Clopidogrel [Plavix] 75 mg PO DAILY #30 tab 06/05/15 03/10/21 Rx oxyCODONE-APAP 5-325MG [Percocet 1 tab PO PC-LUNCH PRN 08/03/17 03/10/21 History 5-325 mg] Pravastatin Sodium [Pravachol] 40 mg PO HS 02/20/20 03/10/21 History Fluticasone Nasal [place] [Flonase 2 spr EA NOSTRIL DAILY 08/15/20 03/10/21 History Nasal [place]] Ondansetron [Zofran] 4 mg PO Q8HR PRN 08/15/20 03/10/21 History diphenhydrAMINE [Benadryl] 25 mg PO DAILY PRN 08/15/20 03/10/21 History hydrALAZINE HCL [Apresoline] 25 mg PO TID 08/15/20 03/10/21 History Albuterol Sulfate [Albuterol 2 puff PO RT-Q6H PRN 03/10/21 03/10/21 History Sulfate Hfa] Baclofen 10 mg PO TID PRN 03/10/21 03/10/21 History Bio Complete 3 1 tab PO BID 03/10/21 03/10/21 History Dicyclomine HCl 20 mg PO TID 03/10/21 03/10/21 History Ipratropium [place] [Atrovent Hfa] 2 puff INHALATION RT-QID 03/10/21 03/10/21 History Ipratropium-Albuterol Nebulize 3 ml INHALATION RT-BID 03/10/21 03/10/21 History [Duoneb 0.5 mg-3 mg/3 ml Soln] Levofloxacin [Levaquin] 500 mg PO DAILY 03/10/21 03/10/21 History Morphine Sulfate ER [Ms Contin] 15 mg PO Q12HR 03/10/21 03/10/21 History Phenylephrine HCl/Acetaminophn 1 tab PO BID PRN 03/10/21 03/10/21 History [Tylenol Sinus Headache Caplet] Allergies Allergy/AdvReac Type Severity Reaction Status Date / Time cephalexin [From Keflex] Allergy Severe Anaphylaxis Verified 03/10/21 22:05 aspirin Allergy Anaphylaxis Verified 03/10/21 22:05 NSAIDS (Non-Steroidal Allergy Anaphylaxis Verified 03/10/21 22:05 Anti-Inflamma Penicillins Allergy Unknown Verified 03/10/21 22:05 Iodinated Contrast Media AdvReac Mild cold Verified 03/10/21 22:05 [Iodinated Contrast Media - symptoms, IV Dye] runny nose, itchy eyes cough Physical Examination - Vital Signs Vital Signs: Vital Signs Temp Pulse Pulse Resp BP BP Pulse Ox 03/11/21 07:44 97.7 F 89 18 141/75 95 03/11/21 07:33 80 03/11/21 07:26 84 03/11/21 05:30 98.1 F 85 18 139/77 94 L 03/11/21 03:30 98.3 F 81 16 118/69 94 L 03/11/21 01:30 98.3 F 85 16 118/57 98 03/11/21 00:30 98.3 F 76 16 146/83 97 03/11/21 00:05 98.3 F 77 18 95/48 95 03/10/21 23:56 98.4 F 80 16 124/71 95 03/10/21 23:30 98.4 F 79 16 124/71 98 03/10/21 22:30 98.4 F 79 16 117/65 98 03/10/21 21:50 98.3 F 79 16 90/53 97 03/10/21 21:35 98.4 F 77 14 105/50 96 03/10/21 21:20 98.4 F 79 16 116/56 97 03/10/21 21:05 98.3 F 76 16 143/71 96 03/10/21 20:50 98.3 F 74 16 136/64 97 03/10/21 20:35 98.3 F 03/10/21 20:32 98.4 F 93 20 93/61 95 Intake and Output 03/10/21 03/11/21 03/11/21 22:59 06:59 14:59 Other: Weight 56.245 kg 56.245 kg Patient is a late middle aged female, in no acute distress. Patient is alert awake oriented to time place and person. Speech and language functions are normal. No aphasia or dysarthria. Attention, concentration and fund of knowledge is adequate. On cranial examination, pupils are round and reacting to light, visual parker are full on confrontation, extraocular muscles are intact with no nystagmus. Face is symmetric, tongue protrudes to the midline. Palatal elevation and sensation normal, hearing and shoulder shrug normal, facial sensation normal. Shoulder shrug normal. On muscle strength testing, there is mild left pronator drift. However the strength is normal in arms and legs distally and proximally. Deep tendon reflexes are symmetric, 1+ at biceps and brachioradialis, 2 at the knees, 1 at ankles and plantars are downgoing. Sensory to touch is equal with no neglect. Cerebellar function showed no ataxia for [id number] testing. No dysdiadochokinesia. Tone and bulk of muscles normal. Gait normal. On general examination, there is bilateral carotid bruit, no murmur, S1-S2 audible. Abdomen is soft nontender. Chest is clear. Peripheral pulses are present. No edema. Results - Laboratory Findings CBC and BMP: 03/12/21 09:36 03/12/21 09:36 Abnormal Lab Findings: Abnormal Labs 03/10/21 03/11/21 03/11/21 20:46 04:24 04:24 Lymphocytes # 0.7 L Sodium 136 L 135 L Potassium 3.3 L Carbon Dioxide 20 L Glucose 151 H Assessment and Plan Assessment: * Probable stroke/TIA manifesting with transient left arm weakness. Her current NIH stroke scale is 1 with left arm pronator drift. Patient was not a candidate for TPA. Patient has been on Plavix for long time since she underwent left CEA in 2013. Patient had stopped Plavix one week ago, in anticipation for epidural injection, which probably resulted in these TIA. * Bilateral ICA stenosis, > 70% on the right, and 50-70% on the left. Patient has history of left CEA in 2013. * New onset intermittent headaches involving right parietal orbital region, of unclear etiology. Rule out atypical cluster headaches, occipital neuralgia, or other secondary causes. * Previous history of migraine headaches. * Bilateral eye floaters, with diagnosis of retinal detachment on the right. Rule out temporal arteritis. * Hypertension * Tobacco use * Vitamin B12 deficiency * Chronic low back pain. Plan: * MRI of the brain with and without contrast to evaluate for stroke, rule out secondary causes of cephalgia. * Patient has been resumed on Plavix 75 mg daily. Patient states she is ALLERGIC to aspirin. * Vascular surgical consultation for bilateral ICA stenosis, severe on the left side. * ESR is 12. CRP 0.7 both normal. We will discuss with vascular surgery, if temporal artery biopsy is necessary. Recommend ophthalmology consultation. * Lipid panel with cholesterol 141, LDL 79.6, HDL 43 and triglycerides 92. Continue pravastatin 40 mg daily. * B12 182, which is significantly low. We will start B12 replacement. Folate 11.3. TFTs are normal. * Thank you for the consultation. Time with Patient: Greater than 30
[2021-03-11] MEDS: CYANOCOBALAMIN 1,000 MCG/ML 1 ML VIAL IM SCH (15:56)
[2021-03-11] MEDS: DICYCLOMINE 20 MG TAB PO SCH ×2 (16:20→20:28)
--- NOTE | 2021-03-11 18:42 | P.HPIM ---
History of Present Illness H&P Date: 03/11/21 Chief Complaint: Right-sided facial paresthesia/left-sided arm drift/cephalgia 65-year-old female with significant medical history of coronary artery disease, asthma, COPD, history of DVTs, fibromyalgia, GERD/reflux, hyperlipidemia, hypertension, osteoarthritis, carotid stenosis, history of right aortic iliac bypass, history of right-sided endarterectomy, and frequent migraines presented to the hospital with with right sided facial numbness, left-sided arm weakness, paresthesia to right foot and cephalgia for duration greater than 24 hours. Patient had extensive diagnostic workup in the emergency department code stroke was activated, CT of the brain with noncontrast, no acute intercranial abnormalities noted, CT angiogram head and neck, severe stenosis 70% to the r ight ICA, moderate to severe stenosis 50-70% left ICA. Review of diagnostic labs, potassium 3.3,troponin negative, additional labs within acceptable range. Consultation with neurology for possible transient ischemic attack/cerebrovascular accident. Consultation with vascular for severe carotid stenosis. 03/11/2021 Patient seen and examined emergency department. Patient resting comfortably in bed. Patient endorses right-sided facial numbness, left-sided arm weakness, and visual changes. Patient denies fever, chills, shortness of breath, chest pain, palpitations, abdominal pain, nausea or vomiting at this time. See above for review of diagnostic testing. Review of Systems Constitutional: Reports weight gain Eyes: bilateral blurred vision (Patient states floaters noted bilateral) Ears, nose, mouth and throat: Reports headache Cardiovascular: Reports as per HPI Respiratory: Reports as per HPI Gastrointestinal: Reports as per HPI Genitourinary: Reports as per HPI Musculoskeletal: Reports arm numbness/tingling (Right-sided facial) Neurological: Reports migraines, Reports paresthesias (Right-sided facial/right- sided lower extremity), Reports tingling, Reports visual changes (Patient states floaters in bilateral eyes) Psychiatric: Reports anxiety Endocrine: Reports as per HPI Hematologic/Lymphatic: Reports as per HPI Allergic/Immunologic: Reports as per HPI Past Medical History Past Medical History: Asthma, Coronary Artery Disease (CAD), Cancer, COPD, Deep Vein Thrombosis (DVT), Fibromyalgia, GERD/Reflux, Hyperlipidemia, Hypertension, Osteoarthritis (OA), Pneumonia, Respiratory Disorder, Vascular Disorder Additional Past Medical History / Comment(s): pad,chronic bronchitis, nodules on thyroid, leukoplakia-lip and vocal cords. past" gangrene on right foot", Ileus ( 02/2020)., herniated discs with back pain., states "food doesnt want to go down" History of Any Multi-Drug Resistant Organisms: None Reported Past Surgical History: Appendectomy, Section, Cholecystectomy, Hysterectomy, Joint Replacement, Orthopedic Surgery Additional Past Surgical History / Comment(s): leukoplakia removed from lip and vocal cords.cervical fusion,2013 rt aorto iliac bypass,aortogram w/ runoff. 2014 had stenting of aorto to rt ext iliac bypass, rt foot 2nd toe reconstructive sx, rt carotid endarterectomy, egd/colonoscopy ,lt knee replacment.lt elbow sx,umbilical hernia repair,bilcarpal tunnel release,lt and rt breast bx-neg, partial hysterectomy Past Anesthesia/Blood Transfusion Reactions: Previous Problems w/ Anesthesia, Postoperative Nausea & Vomiting (PONV) Additional Past Anesthesia/Blood Transfusion Reaction / Comment(s): difficulty waking from anesthesia Past Psychological History: No Psychological Hx Reported Additional Psychological History / Comment(s): . Smoking Status: Current every day smoker Past Alcohol Use History: Abuse, Daily Additional Past Alcohol Use History / Comment(s): started smoking 1977 down from 2 ppd to 1/2 ppd. states recently drinking "fireball whiskey " in her coffee at night to help with pain. Past Drug Use History: None Reported - Past Family History Mother Family Medical History: Cancer, Coronary Artery Disease (CAD), Renal Disease Additional Family Medical History / Comment(s): CABG, LUNG CANCER, Brother(s) Family Medical History: Coronary Artery Disease (CAD), CVA/TIA Additional Family Medical History / Comment(s): 1 BROTHER CABG, 1 BROTHER STROKE Father Family Medical History: Coronary Artery Disease (CAD), Renal Disease Additional Family Medical History / Comment(s): X4 OPEN HEART SX. HUGE CARDIAC HX ON DADS SIDE OF FAMILY Medications and Allergies Home Medications and Allergies Comment(s): Medications and ALLERGIES reviewed Home Medications Medication Instructions Recorded Confirmed Type Carvedilol 25 mg PO BID 05/30/15 03/10/21 History Losartan Potassium 100 mg PO DAILY 05/30/15 03/10/21 History hydroCHLOROthiazide 25 mg PO DAILY 05/30/15 03/10/21 History Clopidogrel [Plavix] 75 mg PO DAILY #30 tab 06/05/15 03/10/21 Rx oxyCODONE-APAP 5-325MG [Percocet 1 tab PO PC-LUNCH PRN 08/03/17 03/10/21 History 5-325 mg] Pravastatin Sodium [Pravachol] 40 mg PO HS 02/20/20 03/10/21 History Fluticasone Nasal [place] [Flonase 2 spr EA NOSTRIL DAILY 08/15/20 03/10/21 History Nasal [place]] Ondansetron [Zofran] 4 mg PO Q8HR PRN 08/15/20 03/10/21 History diphenhydrAMINE [Benadryl] 25 mg PO DAILY PRN 08/15/20 03/10/21 History hydrALAZINE HCL [Apresoline] 25 mg PO TID 08/15/20 03/10/21 History Albuterol Sulfate [Albuterol 2 puff PO RT-Q6H PRN 03/10/21 03/10/21 History Sulfate Hfa] Baclofen 10 mg PO TID PRN 03/10/21 03/10/21 History Bio Complete 3 1 tab PO BID 03/10/21 03/10/21 History Dicyclomine HCl 20 mg PO TID 03/10/21 03/10/21 History Ipratropium [place] [Atrovent Hfa] 2 puff INHALATION RT-QID 03/10/21 03/10/21 History Ipratropium-Albuterol Nebulize 3 ml INHALATION RT-BID 03/10/21 03/10/21 History [Duoneb 0.5 mg-3 mg/3 ml Soln] Levofloxacin [Levaquin] 500 mg PO DAILY 03/10/21 03/10/21 History Morphine Sulfate ER [Ms Contin] 15 mg PO Q12HR 03/10/21 03/10/21 History Phenylephrine HCl/Acetaminophn 1 tab PO BID PRN 03/10/21 03/10/21 History [Tylenol Sinus Headache Caplet] Allergies Allergy/AdvReac Type Severity Reaction Status Date / Time cephalexin [From Keflex] Allergy Severe Anaphylaxis Verified 03/10/21 22:05 aspirin Allergy Anaphylaxis Verified 03/10/21 22:05 NSAIDS (Non-Steroidal Allergy Anaphylaxis Verified 03/10/21 22:05 Anti-Inflamma Penicillins Allergy Unknown Verified 03/10/21 22:05 Iodinated Contrast Media AdvReac Mild cold Verified 03/10/21 22:05 [Iodinated Contrast Media - symptoms, IV Dye] runny nose, itchy eyes cough Physical Exam Vitals: Vital Signs Temp Pulse Pulse Resp BP BP Pulse Ox 03/11/21 16:56 82 03/11/21 16:48 82 03/11/21 16:00 98.3 F 99 18 169/80 95 03/11/21 12:00 98.0 F 84 20 165/80 95 03/11/21 07:44 97.7 F 89 18 141/75 95 03/11/21 07:33 80 03/11/21 07:26 84 03/11/21 05:30 98.1 F 85 18 139/77 94 L 03/11/21 03:30 98.3 F 81 16 118/69 94 L 03/11/21 01:30 98.3 F 85 16 118/57 98 03/11/21 00:30 98.3 F 76 16 146/83 97 03/11/21 00:05 98.3 F 77 18 95/48 95 03/10/21 23:56 98.4 F 80 16 124/71 95 03/10/21 23:30 98.4 F 79 16 124/71 98 03/10/21 22:30 98.4 F 79 16 117/65 98 03/10/21 21:50 98.3 F 79 16 90/53 97 03/10/21 21:35 98.4 F 77 14 105/50 96 03/10/21 21:20 98.4 F 79 16 116/56 97 03/10/21 21:05 98.3 F 76 16 143/71 96 03/10/21 20:50 98.3 F 74 16 136/64 97 03/10/21 20:35 98.3 F 03/10/21 20:32 98.4 F 93 20 93/61 95 Intake and Output 03/11/21 03/11/21 03/11/21 06:59 14:59 22:59 Intake Total 240 Output Total 0 Balance 240 Intake: Oral 240 Output: Urine 0 Other: Weight 56.245 kg - Constitutional General appearance: cooperative, mild distress - EENT Eyes: EOMI, PERRLA, normal appearance ENT: normal oropharynx Ears: bilateral: normal - Neck Neck: normal ROM - Respiratory Respiratory: bilateral: wheezing (Anterior and posterior lung parker) - Cardiovascular Normal sinus rhythm Heart rate: 74 Rhythm: regular Heart sounds: normal: S1, S2 radial pulse Peripheral Pulses: bilateral: Normal dorsalis pedis Peripheral Pulses: bilateral: Normal - Gastrointestinal General gastrointestinal: normal bowel sounds, soft - Neurologic Neurologic: CNII-XII intact - Musculoskeletal Musculoskeletal: generalized weakness - Psychiatric Psychiatric: A&O x's 3 Results CBC & Chem 7: 03/11/21 04:24 03/11/21 04:24 Labs: Abnormal Lab Results - Last 24 Hours (Table) 03/10/21 03/10/21 03/11/21 Range/Units 20:46 20:50 04:24 Lymphocytes # (1.0-4.8) k/uL Sodium 136 L 135 L (137-145) mmol/L Potassium 3.3 L (3.5-5.1) mmol/L Carbon Dioxide 20 L (22-30) mmol/L Glucose 151 H (74-99) mg/dL Vitamin B12 182.0 L (200.0-944.0) pg/mL 03/11/21 Range/Units 04:24 Lymphocytes # 0.7 L (1.0-4.8) k/uL Sodium (137-145) mmol/L Potassium (3.5-5.1) mmol/L Carbon Dioxide (22-30) mmol/L Glucose (74-99) mg/dL Vitamin B12 (200.0-944.0) pg/mL Chest x-ray: report reviewed CT Scan - head: report reviewed Thrombosis Risk Factor Assmnt - Choose All That Apply Each Risk Factor Represents 2 Points: Age 61-74 years Thrombosis Risk Factor Assessment Total Risk Factor Score: 2 Thrombosis Risk Factor Assessment Level: Low Risk Assessment and Plan Assessment: TIA/CVA rule out Severe carotid stenosis Temporal arteritis rule out Cephalgia history of migraines [place] artery disease Hypertension Hyperlipidemia Fibromyalgia History of DVT GERD/reflux Osteoarthritis Peripheral artery disease History of right aortic iliac bypass History of right carotid enterectomy History of left knee replacement Continue dependence Daily alcohol use Full code Plan: TIA/CVA rule out, obtain echocardiogram, continue neuro checks per protocol, obtain additional diagnostic labs, consultation with neurology for recommendations Severe carotid stenosis, continue Plavix, aspirin, and statin therapy,consultation with vascular surgery for possible intervention Cephalgia, rule out temporal arteritis COPD without exacerbation, continue breathing treatments around the clock Continue home medications Continue to monitor vital signs and diagnostic testing Further recommendations come based on patient's clinical condition Time with Patient: Greater than 30
[2021-03-11] MEDS: MORPHINE SULFATE ER 15 MG TABLET PO SCH (20:28)
[2021-03-11] MEDS: SODIUM CHLORIDE 0.9% 1,000 ML IV SCH ×2 (20:32→21:20)
[2021-03-11] MEDS ORDERED: PRAVASTATIN SODIUM 40 MG TAB PO SCH (21:00)
[2021-03-12] MEDS ORDERED: PANTOPRAZOLE 40 MG TABLET PO SCH (07:30)
[2021-03-12] MEDS: IPRATROPIUM 0.5 MG/2.5 ML NEBU INHALATION SCH ×3 (08:20→17:05)
[2021-03-12 08:23] VITALS: RESP 16
--- NOTE | 2021-03-12 08:48 | P.PN ---
Subjective Progress Note Date: 03/12/21 Principal diagnosis: Severe right ICA stenosis Patient is seen and examined at the bedside. No acute changes through the night. States upper extremity weakness completely resolved. Awaiting MRI. Carotid Doppler showed greater than 70% stenosis in the right ICA and 50-69% stenosis in the left ICA. Objective - Vital Signs Vital signs: Vital Signs Temp 97.8 F 03/12/21 04:00 Pulse 78 03/12/21 08:34 Resp 16 03/12/21 08:34 BP 140/70 03/12/21 04:00 Pulse Ox 97 03/12/21 04:00 Intake & Output 03/11/21 03/12/21 03/12/21 18:59 06:59 18:59 Intake Total 480 Output Total 0 Balance 480 Weight 57 kg Intake: Oral 480 Output: Urine 0 Other: Voiding Method Toilet # Voids 1 - Exam General appearance: The patient is alert, oriented, appears in no acute distress. HET: Head is normocephalic and atraumatic. Neck: Supple without lymphadenopathy. Trachea midline. Heart: S1 S2. Regular rate and rhythm. Lungs: Diminished bilaterally. Extremities: Normal skin color and turgor. No cyanosis, rash, ulceration, clubbing, or edema. Neurological: Alert and oriented 3. No focal deficits. Equal grasp bilaterally with good strength, 5/5. - Labs CBC & Chem 7: 03/11/21 04:24 03/11/21 04:24 Labs: Abnormal Lab Results - Last 24 Hours (Table) 03/10/21 Range/Units 20:50 Vitamin B12 182.0 L (200.0-944.0) pg/mL Assessment and Plan Assessment: 1. Severe right and moderate to severe left proximal ICA stenosis per CT angiogram/Carotid doppler 2. Bilateral Extremity weakness 3. Headaches 4. History of peripheral arterial disease status post right aorta iliac bypass 5. History of carotid stenosis status post right carotid endarterectomy 6. Coronary artery disease 7. COPD 8. Current smoker 9. Daily alcohol use Plan: 1. Carotid ultrasound ordered/reviewed 2. Continue aspirin, Plavix, and statin 3. Appreciate recommendations from neurology 4. Tobacco cessation 5. Alcohol abstinence 6. Await MRI results 7. Further recommendations to follow Cleopatra however patient may be discharged home from a vascular surgical standpoint and can be scheduled for outpatient surgical intervention Thank you for this consultation and allowing us to take part in the plan of care of your patient during her hospital stay The impression and plan of care has been dictated as directed. Dr. Talbot I performed a history and examination of this patient, discussed the same with the dictator. I agree with the dictator's note ,documented as a scribe. Any additional findings or plans will be noted.
[2021-03-12] MEDS: hydrALAZINE HCL 25 MG TAB PO SCH ×2 (08:57→15:28)
[2021-03-12] MEDS: MORPHINE SULFATE ER 15 MG TABLET PO SCH (08:58)
[2021-03-12] MEDS: LOSARTAN 50 MG TAB PO SCH (08:58)
[2021-03-12] MEDS: carvediloL 12.5 MG TAB PO SCH (08:58)
[2021-03-12] MEDS: DICYCLOMINE 20 MG TAB PO SCH ×2 (08:58→15:28)
[2021-03-12] MEDS: CYANOCOBALAMIN 1,000 MCG/ML 1 ML VIAL IM SCH (08:59)
[2021-03-12] MEDS: FLUTICASONE 50MCG/SPRAY NASAL 16GM EA NOSTRIL SCH (08:59)
[2021-03-12] MEDS: ASPIRIN 325 MG TAB PO SCH (08:59)
[2021-03-12] MEDS: hydroCHLOROthiazide 25 MG TAB PO SCH (08:59)
[2021-03-12] MEDS: CLOPIDOGREL 75 MG TAB PO SCH (08:59)
[2021-03-12] MEDS: LACTOBACILLUS ACIDOPH & BULGAR 1 EACH PACKET PO SCH (09:00)
[2021-03-12 10:00] LABS: Basophils % (A) 0 %; Eosinophils % (A) 0 %; HCT 36.8 % (34.0-46.0); HGB 12.5 gm/dL (11.4-16.0); Lymphocytes # (A) 2.2 k/uL (1.0-4.8); Lymphocytes % (A) 22 %; MCHC 34.1 g/dL (31.0-37.0); MCV 93.9 fL (80.0-100.0); Mean Platelet Volume 7.7; Monocytes # (A) 0.4 k/uL (0-1.0); Monocytes % (A) 4 %; Neutrophils # (A) 7.1 k/uL (1.3-7.7); Neutrophils % (A) 71 %; Platelet Count 267 k/uL (150-450); RBC 3.92 m/uL (3.80-5.40); RDW 13.5 % (11.5-15.5); WBC 10.1 k/uL (3.8-10.6)
[2021-03-12 10:27] LABS: African American GFR (CKD) >90 (>60 ml/min/1.73 sqM); Anion Gap 7 mmol/L; Blood Urea Nitrogen 14 mg/dL (7-17); Calcium 9.2 mg/dL (8.4-10.2); Carbon Dioxide 23 mmol/L (22-30); Chloride 107 mmol/L (98-107); Glucose 117 mg/dL (74-99); Non-African American GFR(CKD) >90 (>60 ml/min/1.73 sqM); Potassium 3.2 mmol/L (3.5-5.1); Sodium 137 mmol/L (137-145)
--- NOTE | 2021-03-12 11:31 | ECHOF ---
Referral Reason:cva MEASUREMENTS -------- HEIGHT: 152.4 cm WEIGHT: 56.2 kg BP: RVIDd: 3.1 cm (< 3.3) IVSd: 1.1 cm (0.6 - 1.1) LVIDd: 3.1 cm (3.9 - 5.3) LVPWd: 1.6 cm (0.6 - 1.1) IVSs: 1.4 cm LVIDs: 2.2 cm LVPWs: 0.7 cm LAESV Index (A-L): 24.26 ml/m Ao Diam: 2.7 cm (2.0 - 3.7) AV Cusp: 1.6 cm (1.5 - 2.6) MV EXCURSION: 15.271 mm (> 18.000) MV EF SLOPE: 57 mm/s (70 - 150) EPSS: 0.3 cm MV E Lisandro: 0.92 m/s MV DecT: 221 ms MV A Lisandro: 1.11 m/s MV E/A Ratio: 0.83 RAP: 5.00 mmHg RVSP: 13.79 mmHg FINDINGS -------- Sinus rhythm. This was a technically adequate study. The left ventricular size is normal. There is moderate concentric left ventricular hypertrophy. O verall left ventricular systolic function is normal with, an EF between 55 - 60 %. The diastolic fi lling pattern is normal for the age of the patient 9.62. The right ventricle is normal in size. Normal LA size by volume 22+/-6 ml/m2. The right atrial size is normal. The aortic valve is trileaflet, and appears structurally normal. No aortic stenosis or regurgitation. The mitral valve is normal. Mild mitral regurgitation is present. The tricuspid valve appears structurally normal. Mild tricuspid regurgitation present. Right vent ricular systolic pressure is normal at < 35 mmHg. There is no pulmonic regurgitation present. The aortic root size is normal. There is no pericardial effusion. CONCLUSIONS -------- 1. There is moderate concentric left ventricular hypertrophy. 2. Overall left ventricular systolic function is normal with, an EF between 55 - 60 %. 3. Normal LA size by volume 22+/-6 ml/m2. 4. The aortic valve is trileaflet, and appears structurally normal. No aortic stenosis or regurgitati on. 5. Mild mitral regurgitation is present. 6. Mild tricuspid regurgitation present. 7. There is no pericardial effusion. SOFTWARE CONFIGURATION ENGINEER: Ekaterina Whitehead RDCS
--- NOTE | 2021-03-12 14:22 | P.PN ---
Subjective Progress Note Date: 03/12/21 Principal diagnosis: CVA/TIA Severe carotid stenosis Cephalgia 65-year-old female with significant medical history of coronary artery disease, asthma, COPD, history of DVTs, fibromyalgia, GERD/reflux, hyperlipidemia, hypertension, osteoarthritis, carotid stenosis, history of right aortic iliac bypass, history of right-sided endarterectomy, and frequent migraines presented to the hospital with with right sided facial numbness, left-sided arm weakness, paresthesia to right foot and cephalgia for duration greater than 24 hours. Patient had extensive diagnostic workup in the emergency department code stroke was activated, CT of the brain with noncontrast, no acute intercranial abnormalities noted, CT angiogram head and neck, severe stenosis 70% to the right ICA, moderate to severe stenosis 50-70% left ICA. Review of diagnostic labs, potassium 3.3,troponin negative, additional labs within acceptable range. Consultation with neurology for possible transient ischemic a ttack/cerebrovascular accident. Consultation with vascular for severe carotid stenosis. 03/11/2021 Patient seen and examined emergency department. Patient resting comfortably in bed. Patient endorses right-sided facial numbness, left-sided arm weakness, and visual changes. Patient denies fever, chills, shortness of breath, chest pain, palpitations, abdominal pain, nausea or vomiting at this time. See above for review of diagnostic testing. 03/12/2021 Patient seen and examined at bedside. Patient resting currently in bed with no acute signs of distress. Patient denies any neuro deficits, weakness, numbness, or additional complaints. Patient able to ambulate throughout the room without difficulty, speech clear, no appreciated weakness is noted. Diagnostic testing reviewed. Awaiting on MRI/MRA. Objective - Vital Signs Vital signs: Vital Signs Temp 97.9 F 03/12/21 08:00 Pulse 78 03/12/21 08:34 Resp 16 03/12/21 08:34 BP 143/76 03/12/21 08:00 Pulse Ox 92 L 03/12/21 08:00 Intake & Output 03/11/21 03/12/21 03/12/21 18:59 06:59 18:59 Intake Total 480 420 Output Total 0 Balance 480 420 Weight 57 kg Intake: Oral 480 420 Output: Urine 0 Other: Voiding Method Toilet Toilet # Voids 1 - Constitutional General appearance: Present: cooperative, no acute distress - EENT Eyes: Present: EOMI, PERRLA ENT: Present: normal oropharynx Ears: bilateral: normal - Neck Neck: Present: normal ROM - Respiratory Respiratory: bilateral: CTA (Anterior and posterior lung parker) - Cardiovascular Details: Normal sinus rhythm Heart rate: 84 Rhythm: regular Heart sounds: normal: S1, S2 - Peripheral pulses radial pulse Peripheral Pulses: bilateral: Normal dorsalis pedis Peripheral Pulses: bilateral: Normal - Gastrointestinal General gastrointestinal: Present: normal bowel sounds, soft - Integumentary Integumentary: Present: normal turgor - Neurologic Neurologic: Present: CNII-XII intact - Musculoskeletal Musculoskeletal: Present: gait normal - Psychiatric Psychiatric: Present: A&O x's 3 - Allied health notes Allied health notes reviewed: nursing - Labs CBC & Chem 7: 03/12/21 09:36 03/12/21 09:36 Labs: Abnormal Lab Results - Last 24 Hours (Table) 03/12/21 Range/Units 09:36 Potassium 3.2 L (3.5-5.1) mmol/L Glucose 117 H (74-99) mg/dL Assessment and Plan Assessment: TIA/CVA rule out Severe carotid stenosis Temporal arteritis rule out Cephalgia history of migraines Conary artery disease Hypertension Hyperlipidemia Fibromyalgia History of DVT GERD/reflux Osteoarthritis Peripheral artery disease History of right aortic iliac bypass History of right carotid enterectomy History of left knee replacement Continue dependence Daily alcohol use Full code Plan: TIA/CVA rule out, awaiting on MRI MRA Severe carotid stenosis, continue Plavix, aspirin, and statin therapy, vascular surgery will follow-up with patient outpatient for intervention Cephalgia, resolved COPD without exacerbation, continue breathing treatments around the clock improved Continue home medications Continue to monitor vital signs and diagnostic testing Further recommendations come based on patient's clinical condition After MRI/MRA and cleared by neurology patient will be able to be discharged home Time with Patient: Greater than 30
[2021-03-12] MEDS ORDERED: Potassium Replacement Protocol 1 EACH MISC MISCELLANE PRN (14:23)
[2021-03-12 15:17] VITALS: TEMP 98
[2021-03-12] MEDS: POTASSIUM CHLORIDE ER 20 MEQ TAB.ER PO SCH (15:29)
--- NOTE | 2021-03-12 15:42 | MR ---
EXAMINATION TYPE: MR brain wo/w con DATE OF EXAM: 03/12/2021 3:15 PM COMPARISON: NONE HISTORY: Neuro deficit, headache, evaluate for TIA/CVA. CONTRAST: Patient received 5 mL intravenous Gadavist gadolinium contrast. Multiplanar and multispin-echo imaging of the brain was performed . Pre and post contrast enhanced i mages are obtained. The ventricles, basal cisterns and sulci overlying the cerebral convexities are mildly enlarged. There is evidence of mild periventricular white matter ischemic demyelination. Remote deep white matter insults are also noted. There are multiple punctate foci of increased signal on the diffusion weighted data set within the ri ght martinez radiata and centrum semioval bilaterally felt to reflect embolic insult. Correlate clinica lly. There is no evidence for midline shift or mass effect. Acute intracranial hemorrhage or extra-axial collection is not evident. No enhancing lesions are seen. The paranasal sinuses and mastoid air cells are well-aerated. IMPRESSION: There are multiple punctate foci of increased signal on the diffusion weighted data set within the ri ght martinez radiata and centrum semioval bilaterally felt to reflect embolic insult. Correlate clinica lly.
[2021-03-12 17:02] VITALS: BP 162/68; PULSE 78
--- NOTE | 2021-03-12 17:18 | P.PN ---
Subjective Progress Note Date: 03/12/21 Patient's daughter was also present. Patient states she is feeling much better. She offers no new complaints. The headache has resolved. She has now residual normal headache/neck pain, which is related to her previous myofacial injuries from being a gymnastic. No focal weakness. Objective - Vital Signs Vital signs: Vital Signs Temp 98.0 F 03/12/21 12:00 Pulse 76 03/12/21 14:00 Resp 16 03/12/21 14:00 BP 128/78 03/12/21 12:00 Pulse Ox 98 03/12/21 12:00 Intake & Output 03/11/21 03/12/21 03/12/21 18:59 06:59 18:59 Intake Total 480 1140 Output Total 0 Balance 480 1140 Weight 57 kg Intake: Oral 480 1140 Output: Urine 0 Other: Voiding Method Toilet Toilet # Voids 1 - Exam Patient's mental status, speech and language functions are normal. Cranial nerves II through XII are normal. On muscle strength testing there is no pronator drift and the strength is normal in arms and legs. Reflexes symmetric. Sensations equal. No ataxia. Gait normal. - Labs CBC & Chem 7: 03/12/21 09:36 03/12/21 09:36 Labs: Abnormal Lab Results - Last 24 Hours (Table) 03/12/21 Range/Units 09:36 Potassium 3.2 L (3.5-5.1) mmol/L Glucose 117 H (74-99) mg/dL Assessment and Plan Assessment: * Acute ischemic stroke manifesting with transient left arm weakness. Symptoms now completely resolved, with NIH stroke scale of 0. Patient has been on Plavix for long time since she underwent left CEA in 2013. Patient had stopped Plavix one week ago, in anticipation for epidural injection, which probably resulted in these TIA. MRI of the brain confirmed multiple acute areas of small ischemic infarctions involving the right hemispheric region in watershed territory (between MCA/NHI). * Bilateral ICA stenosis, > 70% on the right, and 50-70% on the left. Patient has history of left CEA in 2013. * New onset intermittent headaches involving right parietal orbital region, of unclear etiology. Rule out atypical cluster headaches. Headaches have now completely resolved. Suspect cephalgia related to acute stroke/embolic phenomenon triggering migraines. * Previous history of migraine headaches. * Bilateral eye floaters, with diagnosis of retinal detachment on the right. Rule out temporal arteritis. * Hypertension * Tobacco use (1/2 to 1 pack per day for last 40 years) * Vitamin B12 deficiency * Chronic low back pain. Plan: * MRI of the brain with and without contrast reported as multiple punctate foci of increased signal on the diffusion-weighted images within the right martinez r adiata, and centrum semiovale bilaterally felt to reflect embolic insult. Correlate clinically. I reviewed the MRI, and it only involves the right hemispheric region, in MCA vascular territory. No acute stroke involving the left hemispheric region. * Patient has been resumed on Plavix 75 mg daily. (Patient has received a loading dose of Plavix in the ER, therefore no need for Brilinta). Patient states she is ALLERGIC to aspirin. Patient has received aspirin 325 mg this morning. She had no adverse effects. She'll be maintained on aspirin 81 mg along with Plavix because of high risk for recurrent strokes. She was recommended to have her family members standby when she takes aspirin tomorrow as well. She does have liquid Benadryl at home. * Patient's right ICA is symptomatic. I would recommend right CEA within 1-2 weeks. * ESR is 12. CRP 0.7 both normal. No need for temporal artery biopsy. * Patient has an appointment with her preparole counseling aide in a month, in mid of March 2021. * Lipid panel with cholesterol 141, LDL 79.6, HDL 43 and triglycerides 92. Continue pravastatin 40 mg daily. * B12 182, which is significantly low. We will start B12 replacement. Patient to take vitamin B12 1000 g IM once monthly as outpatient. Folate 11.3. TFTs are normal. * Suggest patient follow up with neurologist in 2-3 weeks. * Patient was strongly recommended tobacco cessation. * Neurologically clear for discharge. Time with Patient: Greater than 30
== END 2021-03-12 18:36 | disposition home or self-care (01) | DRG 65 ==
LOC: EC 20:19 → 3SCARD 22:33
PROVIDERS: ADMIT Family Medicine; ATTEND Family Medicine
DX: I63.9 Cerebral infarction, unspecified (principal); H33.21 Serous retinal detachment, right eye; R20.0 Anesthesia of skin; E53.8 Deficiency of other specified B group vitamins; E78.5 Hyperlipidemia, unspecified; F17.200 Nicotine dependence, unspecified, uncomplicated; G43.909 Migraine, unspecified, not intractable, without status migrainosus; G89.29 Other chronic pain; I10 Essential (primary) hypertension; I25.10 Atherosclerotic heart disease of native coronary artery without angina pectoris; I73.9 Peripheral vascular disease, unspecified; J44.9 Chronic obstructive pulmonary disease, unspecified; K21.9 Gastro-esophageal reflux disease without esophagitis; Z20.822 Contact with and (suspected) exposure to COVID-19; I65.23 Occlusion and stenosis of bilateral carotid arteries; M19.90 Unspecified osteoarthritis, unspecified site; M79.7 Fibromyalgia; R29.702 NIHSS score 2; Z79.02 Long term (current) use of antithrombotics/antiplatelets; Z79.82 Long term (current) use of aspirin; Z79.899 Other long term (current) drug therapy; Z80.1 Family history of malignant neoplasm of trachea, bronchus and lung; Z82.3 Family history of stroke; Z82.49 Family history of ischemic heart disease and other diseases of the circulatory system; Z85.828 Personal history of other malignant neoplasm of skin; Z86.718 Personal history of other venous thrombosis and embolism; Z90.711 Acquired absence of uterus with remaining cervical stump; Z91.041 Radiographic dye allergy status; Z96.652 Presence of left artificial knee joint; M31.6 Other giant cell arteritis
CPT/HCPCS: 36415; 70450; 70496; 70498; 70553; 71045; 80048; 80053; 80061; 82607; 82746; 83735; 84439; 84443; 84481; 84484; 85025; 85610; 85652; 85730; 86140; 87635; 93005; 93306; 93880; 94640; 96374; 96375; 99291

== ENCOUNTER 2021-03-15 22:29 | Emergency (ER) | payer BC ==
[2021-03-15 22:47] VITALS: RESP 18
[2021-03-15] MEDS ORDERED: SODIUM CHLORIDE 0.9% 1,000 ML IV STA (23:00)
--- NOTE | 2021-03-15 23:02 | ED ---
Recheck HPI - General Chief Complaint: Recheck/Abnormal Lab/Rx Stated Complaint: Recheck Time Seen by Provider: 03/15/21 23:00 Source: patient, family, RN notes reviewed, old records reviewed Mode of arrival: ambulatory Limitations: no limitations - History of Present Illness Initial Comments: This is a 65-year-old female to the emergency room today. Patient presents today for evaluation of weakness and ataxia difficulty with ambulation and recent admission for CVA. Patient is also having some blurred vision. No headache currently. MD Complaint: other (Persistent dizziness possibly related to recent CVA) -: days(s) Returns Today for: persistent/worsening pain related to initial visit Symptoms Since Prior Visit: no new symptoms, worsening pain Context: called for abnormal lab result - Related Data Home Medications Medication Instructions Recorded Confirmed Carvedilol 25 mg PO BID 05/30/15 03/10/21 Losartan Potassium 100 mg PO DAILY 05/30/15 03/10/21 hydroCHLOROthiazide 25 mg PO DAILY 05/30/15 03/10/21 oxyCODONE-APAP 5-325MG [Percocet 1 tab PO PC-LUNCH PRN 08/03/17 03/10/21 5-325 mg] Pravastatin Sodium [Pravachol] 40 mg PO HS 02/20/20 03/10/21 Fluticasone Nasal [place] [Flonase 2 spr EA NOSTRIL DAILY 08/15/20 03/10/21 Nasal [place]] Ondansetron [Zofran] 4 mg PO Q8HR PRN 08/15/20 03/10/21 diphenhydrAMINE [Benadryl] 25 mg PO DAILY PRN 08/15/20 03/10/21 hydrALAZINE HCL [Apresoline] 25 mg PO TID 08/15/20 03/10/21 Albuterol Sulfate [Albuterol 2 puff PO RT-Q6H PRN 03/10/21 03/10/21 Sulfate Hfa] Baclofen 10 mg PO TID PRN 03/10/21 03/10/21 Bio Complete 3 1 tab PO BID 03/10/21 03/10/21 Dicyclomine HCl 20 mg PO TID 03/10/21 03/10/21 Ipratropium [place] [Atrovent Hfa] 2 puff INHALATION RT-QID 03/10/21 03/10/21 Ipratropium-Albuterol Nebulize 3 ml INHALATION RT-BID 03/10/21 03/10/21 [Duoneb 0.5 mg-3 mg/3 ml Soln] Levofloxacin [Levaquin] 500 mg PO DAILY 03/10/21 03/10/21 Morphine Sulfate ER [Ms Contin] 15 mg PO Q12HR 03/10/21 03/10/21 Phenylephrine HCl/Acetaminophn 1 tab PO BID PRN 03/10/21 03/10/21 [Tylenol Sinus Headache Caplet] Aspirin EC [Ecotrin Low Dose] 81 mg .ROUTE DAILY 03/12/21 03/12/21 Aspirin EC [Ecotrin Low Dose] 81 mg PO DAILY 03/12/21 03/12/21 Previous Rx's Medication Instructions Recorded Clopidogrel [Plavix] 75 mg PO DAILY #30 tab 06/05/15 Allergies Allergy/AdvReac Type Severity Reaction Status Date / Time cephalexin [From Keflex] Allergy Severe Anaphylaxis Verified 03/15/21 22:45 aspirin Allergy Anaphylaxis Verified 03/15/21 22:45 NSAIDS (Non-Steroidal Allergy Anaphylaxis Verified 03/15/21 22:45 Anti-Inflamma Penicillins Allergy Unknown Verified 03/15/21 22:45 Iodinated Contrast Media AdvReac Mild cold Verified 03/15/21 22:45 [Iodinated Contrast Media - symptoms, IV Dye] runny nose, itchy eyes cough Review of Systems ROS Statement: Those systems with pertinent positive or pertinent negative responses have been documented in the HPI. ROS Other: All systems not noted in ROS Statement are negative. Past Medical History Past Medical History: Asthma, Coronary Artery Disease (CAD), Cancer, COPD, Deep Vein Thrombosis (DVT), Fibromyalgia, GERD/Reflux, Hyperlipidemia, Hypertension, Osteoarthritis (OA), Pneumonia, Respiratory Disorder, Vascular Disorder Additional Past Medical History / Comment(s): pad,chronic bronchitis, nodules on thyroid, leukoplakia-lip and vocal cords. 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 2014 had stenting of aorto to rt ext iliac bypass, rt foot 2nd toe reconstructive sx, rt carotid endarterectomy, egd/colonoscopy ,lt knee replacment.lt elbow sx,umbilical hernia repair,bilcarpal tunnel release,lt and rt breast bx-neg, partial hysterectomy Past Anesthesia/Blood Transfusion Reactions: Previous Problems w/ Anesthesia, Postoperative Nausea & Vomiting (PONV) Additional Past Anesthesia/Blood Transfusion Reaction / Comment(s): difficulty waking from anesthesia Past Psychological History: No Psychological Hx Reported Smoking Status: Current every day smoker Past Alcohol Use History: Abuse, Daily Past Drug Use History: None Reported - Past Family History Mother Family Medical History: Cancer, Coronary Artery Disease (CAD), Renal Disease Additional Family Medical History / Comment(s): CABG, LUNG CANCER, Brother(s) Family Medical History: Coronary Artery Disease (CAD), CVA/TIA Additional Family Medical History / Comment(s): 1 BROTHER CABG, 1 BROTHER STROKE Father Family Medical History: Coronary Artery Disease (CAD), Renal Disease Additional Family Medical History / Comment(s): X4 OPEN HEART SX. HUGE CARDIAC HX ON DADS SIDE OF FAMILY General Exam - General Exam Comments Initial Comments: NIH of 0 Limitations: no limitations General appearance: alert, in no apparent distress Head exam: Present: atraumatic, normocephalic, normal inspection Eye exam: Present: normal appearance, PERRL, EOMI. Absent: scleral icterus, conjunctival injection, periorbital swelling ENT exam: Present: normal exam, mucous membranes moist Neck exam: Present: normal inspection. Absent: tenderness, meningismus, lymphadenopathy Respiratory exam: Present: normal lung sounds bilaterally. Absent: respiratory distress, wheezes, rales, rhonchi, stridor Cardiovascular Exam: Present: regular rate, normal rhythm, normal heart sounds. Absent: systolic murmur, diastolic murmur, rubs, gallop, clicks GI/Abdominal exam: Present: soft, normal bowel sounds. Absent: distended, tenderness, guarding, rebound, rigid Extremities exam: Present: normal inspection, full ROM, normal capillary refill. Absent: tenderness, pedal edema, joint swelling, calf tenderness Back exam: Present: normal inspection Neurological exam: Present: alert, oriented X3, CN II-XII intact Psychiatric exam: Present: normal affect, normal mood Skin exam: Present: warm, dry, intact, normal color. Absent: rash Course Vital Signs 03/15/21 03/16/21 22:45 00:29 Temperature 97.8 F Pulse Rate 84 81 Respiratory 18 18 Rate Blood Pressure 83/54 92/61 O2 Sat by Pulse 95 93 L Oximetry Medical Decision Making - Medical Decision Making 65 female to the emergency prior. Patient is presenting for evaluation regards to TIA symptoms remain resolved currently. Blood pressure normal patient on Plavix and aspirin, at this point patient has no neurological findings and can b e discharged home - Lab Data Result diagrams: 03/15/21 23:21 03/15/21 23:21 Lab Results 03/15/21 03/15/21 03/15/21 Range/Units 23:21 23:21 23:21 WBC 7.8 (3.8-10.6) k/uL RBC 4.07 (3.80-5.40) m/uL Hgb 12.9 (11.4-16.0) gm/dL Hct 38.3 (34.0-46.0) % MCV 94.0 (80.0-100.0) fL MCH 31.6 (25.0-35.0) pg MCHC 33.6 (31.0-37.0) g/dL RDW 12.8 (11.5-15.5) % Plt Count 242 (150-450) k/uL MPV 7.6 Neutrophils % 54 % Lymphocytes % 36 % Monocytes % 6 % Eosinophils % 2 % Basophils % 0 % Neutrophils # 4.2 (1.3-7.7) k/uL Lymphocytes # 2.8 (1.0-4.8) k/uL Monocytes # 0.4 (0-1.0) k/uL Eosinophils # 0.1 (0-0.7) k/uL Basophils # 0.0 (0-0.2) k/uL PT 9.8 (9.0-12.0) sec INR 0.9 (<1.2) APTT 22.7 (22.0-30.0) sec Sodium 135 L (137-145) mmol/L Potassium 3.4 L (3.5-5.1) mmol/L Chloride 103 (98-107) mmol/L Carbon Dioxide 21 L (22-30) mmol/L Anion Gap 11 mmol/L BUN 16 (7-17) mg/dL Creatinine 0.95 (0.52-1.04) mg/dL Est GFR (CKD-EPI)AfAm 74 (>60 ml/min/1.73 sqM) Est GFR (CKD-EPI)NonAf 64 (>60 ml/min/1.73 sqM) Glucose 128 H (74-99) mg/dL Plasma Lactic Acid Denis (0.7-2.0) mmol/L Calcium 9.1 (8.4-10.2) mg/dL Phosphorus 5.2 H (2.5-4.5) mg/dL Magnesium 1.7 (1.6-2.3) mg/dL Total Bilirubin 0.3 (0.2-1.3) mg/dL AST 18 (14-36) U/L ALT 11 (4-34) U/L Alkaline Phosphatase 86 (38-126) U/L Creatine Kinase 67 (30-135) U/L Troponin I (0.000-0.034) ng/mL NT-Pro-B Natriuret Pep pg/mL Total Protein 6.1 L (6.3-8.2) g/dL Albumin 3.9 (3.5-5.0) g/dL Lipase 54 (23-300) U/L TSH 1.040 (0.465-4.680) mIU/L Serum Alcohol <10 mg/dL 03/15/21 03/15/21 03/15/21 Range/Units 23:21 23:21 23:21 WBC (3.8-10.6) k/uL RBC (3.80-5.40) m/uL Hgb (11.4-16.0) gm/dL Hct (34.0-46.0) % MCV (80.0-100.0) fL MCH (25.0-35.0) pg MCHC (31.0-37.0) g/dL RDW (11.5-15.5) % Plt Count (150-450) k/uL MPV Neutrophils % % Lymphocytes % % Monocytes % % Eosinophils % % Basophils % % Neutrophils # (1.3-7.7) k/uL Lymphocytes # (1.0-4.8) k/uL Monocytes # (0-1.0) k/uL Eosinophils # (0-0.7) k/uL Basophils # (0-0.2) k/uL PT (9.0-12.0) sec INR (<1.2) APTT (22.0-30.0) sec Sodium (137-145) mmol/L Potassium (3.5-5.1) mmol/L Chloride (98-107) mmol/L Carbon Dioxide (22-30) mmol/L Anion Gap mmol/L BUN (7-17) mg/dL Creatinine (0.52-1.04) mg/dL Est GFR (CKD-EPI)AfAm (>60 ml/min/1.73 sqM) Est GFR (CKD-EPI)NonAf (>60 ml/min/1.73 sqM) Glucose (74-99) mg/dL Plasma Lactic Acid Denis 1.5 (0.7-2.0) mmol/L Calcium (8.4-10.2) mg/dL Phosphorus (2.5-4.5) mg/dL Magnesium (1.6-2.3) mg/dL Total Bilirubin (0.2-1.3) mg/dL AST (14-36) U/L ALT (4-34) U/L Alkaline Phosphatase (38-126) U/L Creatine Kinase (30-135) U/L Troponin I <0.012 (0.000-0.034) ng/mL NT-Pro-B Natriuret Pep 82 pg/mL Total Protein (6.3-8.2) g/dL Albumin (3.5-5.0) g/dL Lipase (23-300) U/L TSH (0.465-4.680) mIU/L Serum Alcohol mg/dL - EKG Data -: EKG Interpreted by Me (EKG shows sinus rhythm 77. CA 150 QRS 74 QTc 420) - Radiology Data Radiology results: report reviewed (CT brain is negative for acute disease), image reviewed Disposition Clinical Impression: Cerebrovascular accident (CVA), TIA (transient ischemic attack), Headache Disposition: HOME SELF-CARE Condition: Undetermined Instructions (If sedation given, give patient instructions): Transient Ischemic Attack (ED), Self Care Measures After a Stroke (ED) Is patient prescribed a controlled substance at d/c from ED?: No Referrals: Carlton Orozco MD [Primary Care Provider] - 1-2 days
[2021-03-15 23:39] LABS: Basophils % (A) 0 %; Eosinophils # (A) 0.1 k/uL (0-0.7); Eosinophils % (A) 2 %; HCT 38.3 % (34.0-46.0); HGB 12.9 gm/dL (11.4-16.0); Lymphocytes # (A) 2.8 k/uL (1.0-4.8); Lymphocytes % (A) 36 %; MCH 31.6 pg (25.0-35.0); MCHC 33.6 g/dL (31.0-37.0); Mean Platelet Volume 7.6; Monocytes # (A) 0.4 k/uL (0-1.0); Monocytes % (A) 6 %; Neutrophils # (A) 4.2 k/uL (1.3-7.7); Neutrophils % (A) 54 %; Platelet Count 242 k/uL (150-450); RBC 4.07 m/uL (3.80-5.40); RDW 12.8 % (11.5-15.5); WBC 7.8 k/uL (3.8-10.6)
[2021-03-15 23:53] LABS: ALT 11 U/L (4-34); AST 18 U/L (14-36); African American GFR (CKD) 74 (>60 ml/min/1.73 sqM); Albumin 3.9 g/dL (3.5-5.0); Alcohol <10 mg/dL; Alkaline Phosphatase 86 U/L (38-126); Anion Gap 11 mmol/L; Blood Urea Nitrogen 16 mg/dL (7-17); Calcium 9.1 mg/dL (8.4-10.2); Carbon Dioxide 21 mmol/L (22-30); Chloride 103 mmol/L (98-107); Creatine Kinase 67 U/L (30-135); Glucose 128 mg/dL (74-99); Lipase 54 U/L (23-300); Magnesium 1.7 mg/dL (1.6-2.3); Non-African American GFR(CKD) 64 (>60 ml/min/1.73 sqM); Phosphorus 5.2 mg/dL (2.5-4.5); Potassium 3.4 mmol/L (3.5-5.1); Sodium 135 mmol/L (137-145); Total Bilirubin 0.3 mg/dL (0.2-1.3); Total Protein 6.1 g/dL (6.3-8.2)
[2021-03-15 23:55] LABS: INR 0.9 (<1.2); Partial Thromboplastin Time 22.7 sec (22.0-30.0); Prothrombin Time 9.8 sec (9.0-12.0)
--- NOTE | 2021-03-16 00:11 | CT ---
EXAMINATION TYPE: CT brain wo con DATE OF EXAM: 03/15/2021 COMPARISON: 03/10/2021 HISTORY: blurred vison. CT DLP: 1188.4 mGycm Automated exposure control for dose reduction was used. Ventricles have normal size. There is no mass effect nor midline shift. There is no sign of intracran ial hemorrhage. Calvarium is intact. IMPRESSION: Normal unenhanced head CT scan. No change.
[2021-03-16] MEDS ORDERED: MORPHINE SULFATE 4 MG/ML SYRINGE IVP STA (00:17)
[2021-03-16] MEDS ORDERED: MAGNESIUM OXIDE 400 MG TAB PO STA (00:48)
[2021-03-16] MEDS ORDERED: POTASSIUM BICARBONATE/CIT AC 20 MEQ TABLET.EFF PO ONE (00:48)
[2021-03-16] MEDS ORDERED: POTASSIUM CHLORIDE ER 20 MEQ TAB.ER PO ONE (01:00)
[2021-03-16 01:23] VITALS: BP 103/57; PULSE 76; TEMP 98
== END 2021-03-16 01:24 | disposition home or self-care (01) ==
LOC: EC 22:29
DX: I63.9 Cerebral infarction, unspecified (principal); G45.9 Transient cerebral ischemic attack, unspecified; R51.9 Headache, unspecified; I10 Essential (primary) hypertension; E78.5 Hyperlipidemia, unspecified; K21.9 Gastro-esophageal reflux disease without esophagitis; I25.10 Atherosclerotic heart disease of native coronary artery without angina pectoris; J45.909 Unspecified asthma, uncomplicated; M19.90 Unspecified osteoarthritis, unspecified site; F17.200 Nicotine dependence, unspecified, uncomplicated; Z79.82 Long term (current) use of aspirin; Z79.02 Long term (current) use of antithrombotics/antiplatelets; Z88.0 Allergy status to penicillin; Z88.1 Allergy status to other antibiotic agents; Z91.041 Radiographic dye allergy status; Z86.718 Personal history of other venous thrombosis and embolism; Z90.49 Acquired absence of other specified parts of digestive tract; Z90.710 Acquired absence of both cervix and uterus; Z96.652 Presence of left artificial knee joint
CPT/HCPCS: 99285; 96374; 96361; 93005; 83880; 80053; 82550; 83605; 83690; 83735; 84100; 84443; 84484; 85025; 85610; 85730; 80320; 70450; J2270

== ENCOUNTER → 2021-07-24 | Outpatient (CLI) | payer BC ==
--- NOTE | 2021-07-24 15:53 | CT ---
EXAMINATION TYPE: CT angio abd aorta w/Runoff DATE OF EXAM: 07/24/2021 COMPARISON: 02/20/2020 HISTORY: 66-year-old female K55.1, chronic vascular disorder. TECHNIQUE: Contiguous axial scanning of the abdomen and pelvis with bilateral lower extremity runoff performed without and with IV Contrast, patient injected with 125 mL of Isovue 370. Coronal/sagittal MIP reconstructions performed. 3-D reconstructions generated on a dedicated independent workstation. CT DLP: 3009 mGycm Automated exposure control for dose reduction was used. FINDINGS: Heart normal size without pericardial effusion. LAD coronary artery calcifications are present. Mild emphysematous change in the lower lungs. Dilated bile duct at 9 mm with interbody biliary ductal dilatation likely chronic postcholecystectomy status. Otherwise, no focal liver lesion. Portal venous system is patent. Cholecystectomy clips. Adrenal glands, kidneys, spleen, and pancreas within normal limits. Supraumbilical midline incisional fatty hernias are present measuring up to 3.7 cm wide and abdominal wall defects measuring up to 8 mm wide. There is a herniation of omental/mesenteric vessels on axial image 30. No dilated small bowel, free fluid, or free air. Some prominent left periaortic lymph nodes in the retroperitoneum measuring up to 1.1 cm are unchange d, probably reactive/post inflammatory. No mesenteric lymphadenopathy. No significant stool burden. Redundant sigmoid colon. No pericolonic inflammatory change. Bladder is nondistended. There is some pelvic floor relaxation. Uterus surgically absent. A 1.8 cm cyst of the left ovary measured 1.4 cm on 02/20/2020. Annual ultrasound surveillance is recomm ended in a postmenopausal female. Small right ovary. No abnormal fluid collection in the pelvis or pe lvic lymphadenopathy. BONES: Some nonspecific focal subchondral sclerosis along the superior weightbearing aspects of the left gre ater than right femoral heads. Correlate for any risk factors for early AVN. Degenerated convex scoliosis of the lumbar spine. Degenerative changes at the right knee. A 3.0 cm Mccain cyst on the left. Suspect an intraosseous gang lion within the fibular head secondary to degenerative change at the proximal tibiofibular joint. Changes of left total knee arthroplasty. VASCULATURE: Mild to moderate atherosclerotic calcifications visualized lower thoracic aorta and upper to mid abdo sarahi aorta. 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 Redemonstrated aortobiiliac bypass graft at the level of an occluded distal abdominal aorta. There is a right common iliac artery stent which is patent. The external iliac arteries are also patent. RIGHT: Mild atherosclerotic plaque and calcification within the common femoral artery. Profunda femoral fabian ry is patent. Superficial femoral and popliteal arteries are patent. Mild to moderate atherosclerotic changes in the tibial peroneal trunk and mild within the upper anter ior tibial artery. There is three-vessel runoff into the foot. LEFT: Mild atherosclerotic plaque and calcifications, or femoral artery. Profunda femoral arteries patent. Mild atherosclerotic changes upper SFA and also at the level of the adductor hiatus. Mild atelectatic calcifications upper popliteal artery. There is a segment where the popliteal artery is obscured at the level of the patient's total knee arthroplasty. Moderate focal atherosclerotic narrowing upper anterior tibial artery. Mild to moderate atherosclerot ic narrowing tibioperoneal trunk and proximal posterior tibial artery. The peroneal artery becomes diminutive at the distal third leg level. The anterior tibial artery and posterior tibial artery both show faint runoff into the foot. IMPRESSION: 1. REDEMONSTRATED OCCLUSION OF THE DISTAL ABDOMINAL AORTA WITH PATENT AORTO BIILIAC BYPASS GRAFT. 2. MILD TO MODERATE ATHEROSCLEROTIC CHANGE WITHIN THE VESSELS BELOW THE KNEE. ON THE RIGHT, THERE IS THREE-VESSEL RUNOFF INTO THE FOOT. ON THE LEFT, THE PERONEAL ARTERY BECOMES DIMINUTIVE AT THE DISTAL THIRD LEAD LEVEL WITH THERE IS FAINT TWO-VESSEL RUNOFF INTO THE FOOT. 3. SUPRAUMBILICAL MIDLINE INCISIONAL HERNIAS CONTAINING FAT. ABDOMINAL WALL DEFECTS MEASURE UP TO 8 M M WIDE AND FATTY HERNIAS MEASURING UP TO 3.7 CM WIDE. THERE IS HERNIATION OF OMENTAL/MESENTERIC VESSE L SEEN ON AXIAL IMAGE 30. 4. INTRAHEPATIC AND EXTRAHEPATIC BILIARY DUCTAL DILATATION APPEARS RELATIVELY SIMILAR TO THE PRIOR EX AM AND MAY BE CHRONIC STATUS POST CHOLECYSTECTOMY. CORRELATE WITH ALKALINE PHOSPHATASE AND BILIRUBIN LEVELS. 5. A 1.7 CM CYST OF THE LEFT OVARY MEASURED 1.4 CM ON 02/20/2020. ANNUAL ULTRASOUND SURVEILLANCE RECOMM ENDED.
== END | disposition home or self-care (01) ==
LOC: RADCTMAIN 13:23
PROVIDERS: ATTEND Internal Medicine Interventional Cardiology
DX: I74.09 Other arterial embolism and thrombosis of abdominal aorta (principal); I70.211 Atherosclerosis of native arteries of extremities with intermittent claudication, right leg; K43.2 Incisional hernia without obstruction or gangrene; K46.9 Unspecified abdominal hernia without obstruction or gangrene; K83.8 Other specified diseases of biliary tract; N83.202 Unspecified ovarian cyst, left side; Z90.49 Acquired absence of other specified parts of digestive tract
CPT/HCPCS: 75635; Q9967

== ENCOUNTER → 2022-01-08 | Outpatient (CLI) | payer BC, OTHER ==
--- NOTE | 2022-01-08 12:30 | XR ---
EXAMINATION TYPE: XR chest 2V DATE OF EXAM: 01/08/2022 12:21 PM COMPARISON: Chest radiographs from 03/10/2021. TECHNIQUE: XR chest 2V Frontal and lateral views of the chest. CLINICAL INDICATION:Female, 66 years old with history of J44.1 CHRONIC OBSTRUCTIVE PULMONARY DISEASE; FINDINGS: Lungs/Pleura: There is no evidence of pleural effusion, focal consolidation, or pneumothorax. Chronic parenchymal changes redemonstrated. Heart/mediastinum: Cardiomediastinal silhouette is unremarkable. Atherosclerotic calcifications are seen in the aorta. Musculoskeletal: No acute osseous pathology. Cervical fusion hardware redemonstrated. Cholecystectomy clips redemonstrated. IMPRESSION: Chronic changes without acute pulmonary process. No significant change from prior.
== END | disposition home or self-care (01) ==
LOC: RADXRMAIN 12:01
PROVIDERS: ATTEND Family Medicine
DX: J44.1 Chronic obstructive pulmonary disease with (acute) exacerbation (principal)
CPT/HCPCS: 71046

== ENCOUNTER → 2024-12-17 | Outpatient (CLI) | payer MEDICARE ==
--- NOTE | 2024-12-17 14:46 | MM ---
Reason for Exam: Clinical finding. Last mammogram was performed 5 year(s) and 5 month(s) ago. Patient History: Menarche at age 15. First Full-Term at age 21. Hysterectomy at age 42. Postmenopausal. Other cancer. Hormonal Contraceptives, from age 17 until age 42. Excisional Biopsy on the Right side. 04/04/1998, Benign Excisional Biopsy on the left side. 08/16/2019, US discontinued breast bx LT on the left side. Risk Values: Elena 5 year model risk: 1.8%. NCI Lifetime model risk: 6.3%. Prior Study Comparison: 07/13/2019 Bilateral Screening Mammogram, [facility]. 07/24/2019 Left Diagnostic Mammogram, [facility]. 07/24/2019 Left Diagnostic Ultrasound, [facility]. Tissue Density: The breasts are heterogeneously dense, which may obscure small masses. Findings: Analyzed By CAD. Faint vascular calcifications upper outer quadrant right breast. A couple benign boil cyst calcifications laterally on the left. There is an asymmetric density central right MLO view middle to posterior depth that does not persist on additional views compatible with benign superimposition shadow. Otherwise, no discrete abnormality is seen. Overall Assessment: Incomplete: need additional imaging evaluation, BI-RAD 0 Management: Diagnostic Breast Ultrasound of the left breast. For the patient directed palpable site. [facility], , 12/17/2024 2:43 PM. Electronically signed and approved by: Ricci Ireland M.D. Radiologist
--- NOTE | 2024-12-17 14:47 | USB ---
Reason for Exam: Clinical finding. Patient History: Menarche at age 15. First Full-Term at age 21. Hysterectomy at age 42. Postmenopausal. Other cancer. Hormonal Contraceptives, from age 17 until age 42. Excisional Biopsy on the Right side. 04/04/1998, Benign Excisional Biopsy on the left side. 08/16/2019, US discontinued breast bx LT on the left side. Risk Values: Elena 5 year model risk: 1.8%. NCI Lifetime model risk: 6.3%. Technique: Method: Targeted. Prior Study Comparison: 03/18/1998 Bilateral Diagnostic Mammogram, [facility]. 07/13/2019 Bilateral Screening Mammogram, [facility]. 07/24/2019 Left Diagnostic Mammogram, [facility]. Findings: The area of palpable concern of the left breast, the axilla of the left breast and the retroareolar of the left breast were scanned. Targeted ultrasound left axilla extending into the inner aspect of the upper left arm at the patient indicated palpable site. There is a vague heterogeneous area involving the cutaneous and subcutaneous tissues measuring 9 x 8 x 5 mm. Exact etiology is unclear. No solid or cystic lesion otherwise seen and no axillary adenopathy. Additional scanning of the subareolar region shows no discrete abnormality. Overall Assessment: Benign, BI-RAD 2 Management: Screening Mammogram of both breasts in 1 year. Further clinical management for the patient's palpable area near the left axilla but actually located in the inner aspect of the uppermost left arm. Unclear if this represents some type of cutaneous/subcutaneous lesion. Recommend clinical follow-up to ensure stability. If this area increases in size, consider follow-up ultrasound and dermatology referral. A clinical breast exam by your physician is recommended on an annual basis and results should be correlated with mammographic findings. This exam should not preclude additional follow-up of suspicious palpable abnormalities. Results were given to the patient verbally at the time of exam. [facility], , 12/17/2024 2:44 PM. Electronically signed and approved by: Ricci Ireland M.D. Radiologist
== END | disposition home or self-care (01) ==
LOC: RADMAMWWP 13:11
PROVIDERS: ATTEND Family Medicine
DX: R92.333 Mammographic heterogeneous density, bilateral breasts (principal); N60.12 Diffuse cystic mastopathy of left breast; Z78.0 Asymptomatic menopausal state; Z92.0 Personal history of contraception
CPT/HCPCS: 77066; 76642; G0279; 77062

== ENCOUNTER → 2024-12-20 | Outpatient (CLI) | payer MEDICARE ==
--- NOTE | 2024-12-20 10:08 | US ---
EXAMINATION TYPE: US abdomen complete DATE OF EXAM: 12/20/2024 COMPARISON: CT 07/24/2021 CLINICAL INDICATION: Female, 69 years old with history of R14.0 ABDOMINAL DISTENSION (GASEOUS); Pt st ates bloating post prandial, GB surgically absent TECHNIQUE: Grayscale and color Doppler imaging of the abdomen was performed. FINDINGS: EXAM MEASUREMENTS: Liver Length: 18.4 cm CBD: 1.4 cm, color Doppler imaging was utilized to isolate the common bile duct for measurement. Spleen: 7.0 cm Right Kidney: 10.2 x 3.9 x 4.4 cm Left Kidney: 10.1 x 4.6 x 5.2 cm [employer] NOTES: Pancreas: 2mm panc duct visualized, tail obscured by overlying bowel gas Liver: Enlarged, Heterogeneous Gallbladder: Surgically absent CBD: Dilated post valente Spleen: wnl Right Kidney: wnl, No hydronephrosis, calculi or masses seen Left Kidney: wnl, No hydronephrosis, calculi or masses seen Upper IVC: wnl Abd Aorta: Calcifications present within aorta The liver is enlarged and heterogenous without focal lesion. The intrahepatic portion of the IVC and proximal abdominal aorta are within normal limits. Atherosclerotic plaque of the abdominal aorta. Ga llbladder is surgically absent. Common bile duct is dilated. The visualized portions of the pancreas are homogenous. The spleen is unremarkable. Kidneys are symmetric and free of hydronephrosis. No renal lesions are seen. IMPRESSION: 1. Post cholecystectomy changes with dilated common bile duct. Likely related to cholecystectomy phys iologic. Correlate with biliary labs. 2. Hepatomegaly with heterogenous appearance of the liver. No focal lesion. Appearance is nonspecific . [facility], , 12/20/2024 10:06 AM
--- NOTE | 2024-12-20 10:13 | US ---
EXAMINATION TYPE: US thyroid st tissue head/neck DATE OF EXAM: 12/20/2024 COMPARISON: US 2015 CLINICAL INDICATION: Female, 69 years old with history of Pt states abnormal labs, h/o nodules TECHNIQUE: Grayscale and color Doppler imaging of the thyroid gland. FINDINGS: GLAND SIZE: Right Lobe: 5.6 x 2.0 x 2.7 cm Overall Parenchyma: heterogeneous Left Lobe: 4.1 x 1.7 x 1.8 cm Overall Parenchyma: heterogeneous Isthmus Thickness: 0.5 cm NODULES RIGHT: # of nodules measured on right: 2 1. 3.4 X 1.4 x 2.2 cm, mid, mixed cystic and solid, hypoechoic nodule, which is wider than tall, wi th smooth margins, with echogenic foci. TR 4. Prior size: 2.7 x 1.4 x 2.0 cm 2. 0.8 X 0.5 x 0.7 cm, mid medial, solid or almost completely solid, hypoechoic nodule, which is wi delvin than tall, with smooth margins, without echogenic foci. TR 4. Prior size: 1.5 x 1.0 x 1.3 cm LEFT: # of nodules measured on left: 1 1. 1.1 X 1.0 x 1.2 cm, mid, solid or almost completely solid, isoechoic nodule, which is wider than tall, with ill-defined margins, without echogenic foci. TR 3. Prior size: Not visualized on prior ISTHMUS: # of nodules measured in the isthmus: 0 Bilateral neck scanned, no evidence of lymphadenopathy. Nodules as described above. IMPRESSION: 1. Increased size of right thyroid lobe 3.4 cm TR 4 nodule. Fine needle aspiration is recommended. 2. Decreased size of now subcentimeter right thyroid lobe TR 4 nodule. 3. New left thyroid lobe 1.2 cm TR 3 nodule. Highest TI-RADS level nodule reported: ACR TI-RADS LEVEL: TI-RADS 4 - Moderately Suspicious: Follow if > 1 cm, FNA if > 1.5 cm TI-RADS assessment score and recommendation for follow-up based on appropriate scoring and treatment protocols. TR1 Benign No FNA TR2 Not suspicious No FNA TR3: If nodule size is ? 2.5 cm, FNA is recommended. If nodule size is ? 1.5 cm, follow-up imaging at 1, 3, and 5 years is recommended. TR4: If nodule size is ? 1.5 cm, FNA is recommended. If nodule size is ? 1.0 cm, follow-up imaging at 1, 2, 3, and 5 years is recommended. TR5: If nodule size is ? 1.0 cm, FNA is recommended. If nodule size is ? 0.5 cm, annual follow-up for up to 5 years is recommended. TR 1 thyroid nodules have a 0.3 % risk of malignancy. TR 2 thyroid nodules have a 1.5 % risk of malignancy. TR 3 thyroid nodules have a 4.8 % risk of malignancy. TR 4 thyroid nodules have a 9.1 % risk of malignancy. TR 5 thyroid nodules have a 35 % risk of malignancy. [facility], , 12/20/2024 10:11 AM
== END | disposition home or self-care (01) ==
LOC: RADUSWWP 09:13
PROVIDERS: ATTEND Family Medicine
DX: R14.0 Abdominal distension (gaseous) (principal); R79.89 Other specified abnormal findings of blood chemistry; R16.0 Hepatomegaly, not elsewhere classified; E04.2 Nontoxic multinodular goiter; K83.8 Other specified diseases of biliary tract; Z90.49 Acquired absence of other specified parts of digestive tract
CPT/HCPCS: 76536; 76700